=== PATIENT | female | born 1940 | race Caucasian/White ===

== ENCOUNTER → 2016-12-29 | Outpatient (CLI) | payer OTHER ==
[~2016-12-29] MED LIST: BIOT1TAB2 PO; LACT1CAP6 PO; METO25TA56 PO
--- NOTE | 2016-12-29 15:09 | MAMMOGRAPHY REPORT ---
BILATERAL DIGITAL SCREENING MAMMOGRAM WITH CAD: 12/29/2016 CLINICAL HISTORY: Routine screening. Patient has no complaints. TECHNIQUE: Current study was also evaluated with a Computer Aided Detection (CAD) system. Bilateral CC and MLO views were obtained. COMPARISON: Comparison is made to exams dated: 12/29/2015 mammogram, 12/09/2014 mammogram, 11/19/2013 ma mmogram, 11/04/2012 mammogram, 11/02/2011 mammogram, and 10/31/2010 mammogram - [facility]. BREAST COMPOSITION: The tissue of both breasts is heterogeneously dense, which may obscure small mas ses. FINDINGS: No suspicious masses, calcifications, or areas of architectural distortion are noted in ei ther breast. There has been no significant interval change compared to prior exams. Scattered bilater al benign-appearing calcifications are not significantly changed. A linear scar marker denotes a sca r on the left upper outer breast. Possible architectural distortion in the left upper outer quadrant is stable compared to multiple prior exams and presumably represents postsurgical changes as it is i n the region of the patient's scar. IMPRESSION: ACR BI-RADS CATEGORY 2: BENIGN There is no mammographic evidence of malignancy. A 1 year screening mammogram is recommended. The pa tient will receive written notification of the results. Approximately 10% of breast cancers are not detected with mammography. A negative mammographic report should not delay biopsy if a clinically suggestive mass is present. Mirian Roque M.D. /:12/29/2016 12:33:11 Glue Maker Bone: Geovanna GALLO)(Leo), [facility] letter sent: Normal 1/2 BI-RADS Code: ACR BI-RADS Category 2: Benign
== END | disposition home or self-care (01) ==
LOC: C.MAMM 11:04
PROVIDERS: ATTEND Obstetrics & Gynecology
DX: Z12.31 Encounter for screening mammogram for malignant neoplasm of breast (principal)

== ENCOUNTER → 2017-02-06 | Outpatient (CLI) | payer OTHER | END | disposition home or self-care (01) | LOC: C.PAPS 14:14 | PROVIDERS: ATTEND Obstetrics & Gynecology | DX: Z12.4 Encounter for screening for malignant neoplasm of cervix (principal) ==

== ENCOUNTER 2024-05-10 08:05 | Inpatient (IN) ==
--- NOTE | 2024-05-10 08:38 | Emergency Department Note ---
Impression & Plan Acute urinary retention, Stercoral colitis ED Provider Note HISTORY OF PRESENT ILLNESS: Patient is an 83-year-old female presenting with being unable to urinate. Patient reports that she has not been able to fully empty her bladder in the last week. She had hemorrhoidectomy surgery 5 days ago and states that she has been having difficulties urinate ever since. She has been using sitz bath's and urinating during her sitz bath's. Reports that last night she felt significant pressure and labor pains but was only able to get a few drops of urine out at a time. She states significant pain and pressure in her lower abdomen. Denies any nausea or vomiting. She denies any fevers. Patient reports that she had not had a bowel movement all week until last night when she finally took some milk of magnesia. ROS: as above PHYSICAL EXAM: Constitutional: Patient appears in no acute distress. HENT: Head: Normocephalic and atraumatic. Eyes: EOMI, PERRL Mouth/Throat: Mucous membranes moist. Neck: Trachea midline. Neck supple. Cardiovascular: RRR, No murmurs, rubs or gallops. Intact distal pulses. Pulmonary/Chest: No respiratory distress. Breath sounds clear and equal bilaterally. No wheezes or rales. Abdominal: Abdomen soft, no rebound or guarding. Lower abdominal tenderness and fullness Musculoskeletal: No edema, tenderness or deformity noted. Skin: Warm and dry. No rash, erythema, pallor or cyanosis Psychiatric: Appropriate mood and affect for situation. Neurological: Alert and keenly responsive. CN II-XII grossly intact, moving all extremities equally and fully. MDM: - Vitals signs showed hypertension. Patient was bladder scan by nursing staff for over 1000 cc of urine in her bladder. A Sanders catheter was placed. - History obtained via patient. History as above. - Chronic conditions affecting care: pancreatic cyst; hemorrhoids; HTN - Differential diagnoses include, but are not limited to: urinary obstruction; NAVEEN; electrolyte abnormality; post-operative infection - Order placed for continuous cardiac monitoring. At this time, monitor showed rate of 69 bpm with normal sinus rhythm, per my interpretation. - External medical records reviewed. [facility] documentation was reviewed. Patient was seen and colorectal surgery clinic on 05/03/2024 for rectal discharge. She had an anoscopy performed in clinic that showed the "notable for internal hemorrhoids, but primary problem was left posterior lateral hemorrhoid." She was planned to have a hemorrhoidectomy performed. The procedure note from [facility] dated 05/05/2024 was also reviewed. Patient had a large, engorged hemorrhoid. She had a 3: Hemorrhoidectomy, with internal and external components performed. - Laboratory workup interpreted by myself showed normal WBC; stable electrolytes; transaminitis (AST 120; ALT 69) - Patient given 50 mcg IV fentanyl and 4 mg IV zofran in ER for pain and nausea. - Patient requested her home medications of 25 mg PO HCTZ and 50 mg PO toprol XL, which were ordered - UA negative for infection - CT abdomen/pelvis with IV contrast showed moderate fecal retention in the rectum and findings concerning for stercoral proctitis. Also noted to have in a moderate size bowel containing supraumbilical hernia. - Lactate added to workup. - Given patient's recent hemorrhoidectomy procedure and her findings of stercoral proctitis on CT scan, IV rocephin + flagyl added for antibiotic coverage - Discussed case with surgeon transitions rn care coordinator, Dr. Felton, at 11:05 AM, who agreed with plan for admission for IV antibiotics. - Discussion was had with pillowcase cleaner about patient's case and need for admission - Hospitalist consulted for admission - Patient admitted to [facility] for further evaluation and management. ASSESSMENT AND PLAN: Diagnosis: acute urinary retention; stercoral colitis Plan: admit Past Med/Surg History Problem List (Updated 05/10/24 @ 11:08 by Carlota Ellison MD) Stercoral colitis (Acute) Acute urinary retention (Acute) Plantar fasciitis Pancreatic cyst (Chronic) Dehydration (Acute) Dehydration (Acute 03/16/14) Fever (Acute) Fever (Acute) Hepatitis (Acute) LFT elevation (Acute 03/16/14) Viral syndrome (Acute 03/16/14) Social History Smoking Status: Never smoker Allergies Allergies Allergy/AdvReac Type Severity Reaction Status Date / Time procaine [From Novocain] AdvReac Severe Made arms Unverified 05/10/24 10:26 weak Home Meds Home Medications Medication Instructions Recorded Confirmed lactobacillus combination no.4 3 3,000 mmu cells PO 2XWK ##0 03/15/14 05/10/24 billion cell capsule (Probiotic) apixaban 5 mg tablet (Eliquis) 5 mg PO BID 05/10/24 05/10/24 coenzyme Q10 100 mg capsule 100 mg PO DAILY 05/10/24 05/10/24 (CoQ-10) gabapentin 300 mg capsule 300 mg PO BID 05/10/24 05/10/24 hydrochlorothiazide 25 mg tablet 25 mg PO DAILY 05/10/24 05/10/24 hydroxyurea 500 mg capsule 500 mg PO UD 05/10/24 05/10/24 metoprolol succinate 50 mg 50 mg PO DAILY 05/10/24 05/10/24 tablet,extended release 24 hr oxycodone 5 mg tablet 5 mg PO Q6H PRN Pain 05/10/24 05/10/24 rosuvastatin 20 mg tablet 20 mg PO DAILY 05/10/24 05/10/24 tobramycin-dexamethasone 0.3 %-0.1 1 applic OPB DAILY PRN Rash 05/10/24 05/10/24 % eye ointment (TobraDex) Results & Data (ED) Vital Signs Vital Signs - 24 hr 05/10/24 08:15 05/10/24 08:15 05/10/24 08:41 Temperature 36.9 C Temperature Source Oral Oral Pulse Rate 80 74 Pulse Rate from SpO2 Sensor Respiratory Rate 15 Blood Pressure 162/89 H Blood Pressure Mean 113 Pulse Oximetry 94 Oxygen Delivery Method Room Air Sepsis Recent Fever Within 48 Hours No Sepsis New/Unexplained Change in Mental Status N/A Sepsis Action Taken by Nursing No Action Required 05/10/24 09:06 05/10/24 09:30 05/10/24 10:12 Temperature Temperature Source Pulse Rate 77 65 69 Pulse Rate from SpO2 Sensor 74 65 69 Respiratory Rate 23 13 16 Blood Pressure 163/100 H 146/76 H 151/82 H Blood Pressure Mean 121 99 105 Pulse Oximetry 98 99 99 Oxygen Delivery Method Sepsis Recent Fever Within 48 Hours Sepsis New/Unexplained Change in Mental Status Sepsis Action Taken by Nursing 05/10/24 10:33 Temperature Temperature Source Pulse Rate 71 Pulse Rate from SpO2 Sensor 71 Respiratory Rate 14 Blood Pressure 143/77 H Blood Pressure Mean 99 Pulse Oximetry 100 Oxygen Delivery Method Sepsis Recent Fever Within 48 Hours Sepsis New/Unexplained Change in Mental Status Sepsis Action Taken by Nursing Laboratory Data 05/10/24 08:22 05/10/24 08:22 Lab Results 05/10/24 05/10/24 Range/Units 08:22 08:54 WBC 6.23 (4.8-10.8) K/ul RBC 3.34 L (4.20-5.40) M/uL Hgb 13.5 (12.0-16.0) g/dl Hct 37.5 (37.0-47.0) % MCV 112.3 H (80.0-100.0) fL MCH 40.4 H (25.0-34.0) pg MCHC 36.0 (32.0-36.0) g/dL RDW Std Deviation 55.3 H (36.4-46.3) fL RDW Coeff of Candida 13.5 (11.5-14.5) % Plt Count 311 (130-400) K/uL MPV 9.4 (9.4-12.4) fL Immature Gran % (Auto) 0.5 % Neut % (Auto) 63.1 % Lymph % (Auto) 25.5 % Cassia % (Auto) 10.1 % Eos % (Auto) 0.6 % Baso % (Auto) 0.2 % Neut # (Auto) 3.93 (1.40-6.50) K/uL Lymph # (Auto) 1.59 (1.20-3.40) K/uL Cassia # (Auto) 0.63 H (0.11-0.59) K/uL Eos # (Auto) 0.04 (0.00-0.50) K/uL Baso # (Auto) 0.01 (0.00-0.20) K/uL Immature Gran # (Auto) 0.03 (0.01-0.20) K/uL Absolute Nucleated RBC 0.05 (0.00-0.12) K/uL Nucleated RBC % (auto) 0.8 % Polychromasia 1+ Macrocytosis Present Pappenheimer Bodies 2+ [place] Bodies 1+ Sodium 138 (136-145) mmol/L Potassium 3.9 (3.5-5.1) mmol/L Chloride 99 (98-107) mmol/L Carbon Dioxide 30 (21-32) mmol/L Anion Gap 9 (3-11) BUN 20 (6-23) mg/dl Creatinine 0.74 (0.6-1.2) mg/dl Est Cr Clr Drug Dosing 60.7 ml/min eGFR 80.23 BUN/Creatinine Ratio 27.0 H (10-20) Glucose 117 H (70-99(Fasting)) mg/dl Calcium 9.7 (8.6-10.3) mg/dl Total Bilirubin 1.1 H (0.2-1.0) mg/dl AST 120 H (13-39) U/L ALT 69 H (7-52) U/L Alkaline Phosphatase 184 H (34-104) U/L Total Protein 6.6 (6.0-8.3) gm/dl Albumin 3.9 (3.4-5.0) gm/dl Globulin 2.7 (2.5-4.0) gm/dl Albumin/Globulin Ratio 1.4 (0.9-2) Urine Color Yellow Urine Appearance Clear (Clear) Urine pH 7.5 (4.5-7.5) Ur Specific Emery 1.014 (1.000-1.030) Urine Protein Negative (Negative) Urine Glucose (UA) Negative (Negative) Urine Ketones Trace H (Negative) Urine Blood Negative (Negative) Urine Nitrite Negative (Negative) Urine Bilirubin Negative (Negative) Urine Urobilinogen Negative (Negative) Ur Leukocyte Esterase Negative (Negative) Administered Medications Discontinued Medications Fentanyl Citrate (Fentanyl Citrate Pf 100 Mcg/2 Ml Vial) 50 mcg IV NOW STA Stop: 05/10/24 08:37 Last Admin: 05/10/24 09:04 Dose: 50 mcg Documented By: ERWIN Hydrochlorothiazide (Hydrochlorothiazide 25 Mg Tab) 25 mg PO NOW STA Stop: 05/10/24 09:27 Last Admin: 05/10/24 10:59 Dose: 25 mg Documented By: ERWIN Ceftriaxone Sodium (Rocephin) 2,000 mg in 50 mls @ 100 mls/hr IV NOW STA Stop: 05/10/24 10:59 Last Admin: 05/10/24 10:59 Dose: 100 mls/hr Documented By: ERWIN Metoprolol Succinate (Metoprolol Succ 50mg Ext Rel Tab) 50 mg PO NOW STA Stop: 05/10/24 09:27 Last Admin: 05/10/24 10:59 Dose: 50 mg Documented By: ERWIN Ondansetron HCl (Ondansetron Inj 2 Mg/Ml 2 Ml Vial) 4 mg IV NOW STA Stop: 05/10/24 08:37 Last Admin: 05/10/24 09:04 Dose: 4 mg Documented By: [facility] Imaging Data Radiologist's Impression: Abdomen/Pelvis CT 05/10/24 09:[address] WITHOUT CONTRAST CT DOSE: 1078.2 mGy.cm HISTORY: Acute lower abdominal pain lower abd pain; urinary retention TECHNIQUE: Multiaxial CT images of the abdomen and pelvis were performed without contrast. A dose lowering technique was utilized adhering to the principles of ALARA. COMPARISON STUDY: 03/15/2014 FINDINGS: Mild cardiomegaly. Mild dependent subsegmental bibasilar atelectasis versus scarring. No pneumoperitoneum. 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 Cholecystectomy. Unremarkable adrenal glands and liver. Cortical thinning of the kidneys. 8 mm nonobstructing calculus of the interpolar right kidney. There are a few probable cysts in the left kidney measuring up to 11 mm. No ureteral calculi or hydronephrosis. Decompressed urinary bladder with Sanders catheter. Atherosclerosis of the aorta without aneurysm. No pathologically enlarged lymph nodes identified. Mild nonspecific distal esophageal wall thickening. Moderate fecal retention within the rectum with rectal wall thickening and perirectal stranding. Subcentimeter perirectal lymph nodes are also present. Colonic distention with air-fluid levels. No small bowel obstruction. There is a supraumbilical hernia which is fat filled measuring 6.4 cm containing a portion of nonobstructed transverse colon. No CT evidence of acute appendicitis. No acute fracture. IMPRESSION: 1. Right nephrolithiasis. No ureteral calculi or hydronephrosis. 2. No bowel obstruction or pneumoperitoneum. 3. Moderate fecal retention of the rectum with findings suggestive of a stercoral proctitis. Findings could be correlated with colonoscopy to exclude an underlying mucosal lesion. 4. Subcentimeter perirectal lymph nodes. 5. Colonic air-fluid levels suggestive of diarrheal illness versus colonic ileus. 6. Moderate-sized bowel containing supraumbilical hernia. ACT 112: Negative or not required by law. The above report was generated using voice recognition software. It may contain grammatical, syntax or spelling errors. Electronically signed by: Cam Lyles M.D. 05/10/2024 10:10 AM Discharge Plan Visit Data Chief Complaint: Unable to Void Stated Complaint: Unable to Void ED Provider: Carlota Ellison Discharge Problem: Acute urinary retention, Stercoral colitis Forms Stand Alone Forms: My [facility] Prescriptions Prescriptions: No Action Probiotic 3 billion cell Capsule 3,000 mmu cells PO 2XWK Qty: 0 Rx Instructions: Sun/Wed hydroxyurea 500 mg capsule 500 mg PO UD Rx Instructions: Take 1000mg by mouth on Sun/Sun/Fri and 500mg all other days metoprolol succinate 50 mg tablet extended release 24 hr 50 mg PO DAILY TobraDex 0.3-0.1 % ointment 1 applic OPB DAILY PRN (Reason: Rash) gabapentin 300 mg capsule 300 mg PO BID hydrochlorothiazide 25 mg tablet 25 mg PO DAILY oxycodone 5 mg tablet 5 mg PO Q6H PRN (Reason: Pain) coenzyme Q10 [CoQ-10] 100 mg Capsule 100 mg PO DAILY rosuvastatin 20 mg tablet 20 mg PO DAILY Eliquis 5 mg tablet 5 mg PO BID Referrals Referrals: Kathryn Dennison DO [Primary Care Provider] -
[2024-05-10] MEDS: fentaNYL citrate PF 100 MCG/2 ML VIAL IV STA (09:04)
[2024-05-10] MEDS: ONDANSETRON INJ 2 MG/ML 2 ML VIAL IV STA (09:04)
[2024-05-10 09:07] LABS: Albumin Globulin Ratio 1.4 (0.9-2); Albumin Level 3.9 gm/dl (3.4-5.0); Bilirubin,Total 1.1 mg/dl (0.2-1.0); Calcium 9.7 mg/dl (8.6-10.3); Creatinine Clr Calc Pharmacy 60.7 ml/min; Globulin 2.7 gm/dl (2.5-4.0); Potassium 3.9 mmol/L (3.5-5.1); Total Protein 6.6 gm/dl (6.0-8.3)
[2024-05-10 09:09] LABS: Appearance Urine Clear (Clear); Bilirubin Urine Negative (Negative); Blood Urine Negative (Negative); Color Urine Yellow; Glucose Urine UA Negative (Negative); Ketones Urine Trace (Negative); Leukocyte Esterase Urine Negative (Negative); Nitrite Urine Negative (Negative); Protein Urine Negative (Negative); Specific Gravity Urine 1.014 (1.000-1.030); Urobilinogen Urine Negative (Negative); pH Urine 7.5 (4.5-7.5)
[2024-05-10 09:10] LABS: Basophils # (auto) 0.01 K/uL (0.00-0.20); Basophils % (auto) 0.2 %; Eosinophils # (auto) 0.04 K/uL (0.00-0.50); Eosinophils % (auto) 0.6 %; Hematocrit (blood only) 37.5 % (37.0-47.0); Hemoglobin 13.5 g/dl (12.0-16.0); Immature Granulocytes # (auto) 0.03 K/uL (0.01-0.20); Immature Granulocytes % (auto) 0.5 %; Lymphocytes # (auto) 1.59 K/uL (1.20-3.40); Lymphocytes % (auto) 25.5 %; Mean Corpuscular Hemoglobin 40.4 pg (25.0-34.0); Mean Corpuscular Volume 112.3 fL (80.0-100.0); Mean Platelet Volume 9.4 fL (9.4-12.4); Monocytes # (auto) 0.63 K/uL (0.11-0.59); Monocytes % (auto) 10.1 %; Neutrophils # (auto) 3.93 K/uL (1.40-6.50); Neutrophils % (auto) 63.1 %; Nucleated RBC # (auto) 0.05 K/uL (0.00-0.12); Nucleated RBC % (auto) 0.8 %; Platelet Count 311 K/uL (130-400); RDW Coefficient of Variation 13.5 % (11.5-14.5); RDW Standard Deviation 55.3 fL (36.4-46.3); Red Blood Count 3.34 M/uL (4.20-5.40); White Blood Count 6.23 K/ul (4.8-10.8)
[2024-05-10 09:32] LABS: Howell-Jolly Bodies 1+; Macrocytosis Present; Pappenheimer Bodies 2+; Polychromasia 1+
--- NOTE | 2024-05-10 10:12 | CT Scan Report ---
ABDOMEN AND PELVIS CT WITHOUT CONTRAST CT DOSE: 1078.2 mGy.cm HISTORY: Acute lower abdominal pain lower abd pain; urinary retention TECHNIQUE: Multiaxial CT images of the abdomen and pelvis were performed without contrast. A dose lo wering technique was utilized adhering to the principles of ALARA. COMPARISON STUDY: 03/15/2014 FINDINGS: Mild cardiomegaly. Mild dependent subsegmental bibasilar atelectasis versus scarring. No pn eumoperitoneum. 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 Cholecystectomy. Unremarkable a drenal glands and liver. Cortical thinning of the kidneys. 8 mm nonobstructing calculus of the interp olar right kidney. There are a few probable cysts in the left kidney measuring up to 11 mm. No ureter al calculi or hydronephrosis. Decompressed urinary bladder with Sanders catheter. Atherosclerosis of th e aorta without aneurysm. No pathologically enlarged lymph nodes identified. Mild nonspecific distal esophageal wall thickening. Moderate fecal retention within the rectum with r ectal wall thickening and perirectal stranding. Subcentimeter perirectal lymph nodes are also present . Colonic distention with air-fluid levels. No small bowel obstruction. There is a supraumbilical her marimar which is fat filled measuring 6.4 cm containing a portion of nonobstructed transverse colon. No C T evidence of acute appendicitis. No acute fracture. IMPRESSION: 1. Right nephrolithiasis. No ureteral calculi or hydronephrosis. 2. No bowel obstruction or pneumoperitoneum. 3. Moderate fecal retention of the rectum with findings suggestive of a stercoral proctitis. Findings could be correlated with colonoscopy to exclude an underlying mucosal lesion. 4. Subcentimeter perirectal lymph nodes. 5. Colonic air-fluid levels suggestive of diarrheal illness versus colonic ileus. 6. Moderate-sized bowel containing supraumbilical hernia. ACT 112: Negative or not required by law. The above report was generated using voice recognition software. It may contain grammatical, syntax o r spelling errors. Electronically signed by: Cam Lyles M.D. 05/10/2024 10:10 AM
[2024-05-10] MEDS: hydroCHLOROthiazide 25 MG TAB PO STA (10:59)
[2024-05-10] MEDS: cefTRIAXone SODIUM 2,000 MG/50 ML BAG IV STA (10:59)
[2024-05-10] MEDS: METOPROLOL SUCC 50MG EXT REL TAB PO STA (10:59)
--- NOTE | 2024-05-10 11:07 | History & Physical Report ---
Date of Service May 10, 2024 Assessment & Plan (1) Stercoral colitis: Plan: Continue IV ceftriaxone and IV metronidazole per general surgery recommendations Consult general surgery Clear liquids and advance as tolerated (2) Acute urinary retention: Plan: Continue Sanders catheter Consult urology No signs of UTI Patient has nephrolithiasis (3) Paroxysmal atrial fibrillation: Plan: Continue metoprolol Rate is controlled Continue apixaban but may need to hold if she has any further rectal bleeding or drop in hemoglobin (4) Chronic anticoagulation: Plan: On apixaban (5) S/P hemorrhoidectomy: Plan: Surgery follow-up Observe for any further bleeding (6) Polycythemia: Plan: Continue hydroxyurea Plan VTE prophylaxis: Patient on chronic apixaban Patient is a full code 75 minutes was spent in the care coordination of this patient. History of Present Illness Chief Complaint: Abdominal pain Primary Care Provider: Kathryn Dennison DO Vanna Art is an 83-year-old female with a previous history significant for history of splenectomy, paroxysmal atrial fibrillation on chronic apixaban, polycythemia vera, hyperlipidemia, calculus of kidney, symptomatic PVCs, pancreatic cyst consistent with intraductal papillary mucinous neoplasm and recent rectal surgery consisting of hemorrhoidectomy 5 days ago at [facility] with colorectal surgery. She presents to the ED today with a complaint of not being able to urinate. Patient reports that she has not been able to fully empty her bladder in the last week. She had hemorrhoidectomy surgery 5 days ago and states that she has been having difficulties urinate ever since. She has been using sitz bath's and urinating during her sitz bath's. Reports that last night she felt significant pressure but was only able to get a few drops of urine out at a time. She states significant pain and pressure in her lower abdomen. Denies any nausea or vomiting. She denies any fevers. Patient reports that she had not had a bowel movement all week until last night when she finally took some milk of magnesia. In the ED a Sanders catheter was inserted and she had over 1 L of retained urine. CT scan shows probable proctitis. ED provider discussed case with surgery and they recommended admission with IV antibiotics. Patient was started on IV metronidazole and ceftriaxone. Patient is referred for admission for further treatment. Allergies Allergy/AdvReac Type Severity Reaction Status Date / Time procaine [From Novocain] AdvReac Severe Made arms Unverified 05/10/24 10:26 weak Home Medications Medication Instructions Recorded Confirmed Type lactobacillus combination no.4 3 3,000 mmu cells PO 2XWK ##0 03/15/14 05/10/24 History billion cell capsule (Probiotic) apixaban 5 mg tablet (Eliquis) 5 mg PO BID 05/10/24 05/10/24 History coenzyme Q10 100 mg capsule 100 mg PO DAILY 05/10/24 05/10/24 History (CoQ-10) gabapentin 300 mg capsule 300 mg PO BID 05/10/24 05/10/24 History hydrochlorothiazide 25 mg tablet 25 mg PO DAILY 05/10/24 05/10/24 History hydroxyurea 500 mg capsule 500 mg PO UD 05/10/24 05/10/24 History metoprolol succinate 50 mg 50 mg PO DAILY 05/10/24 05/10/24 History tablet,extended release 24 hr oxycodone 5 mg tablet 5 mg PO Q6H PRN Pain 05/10/24 05/10/24 History rosuvastatin 20 mg tablet 20 mg PO DAILY 05/10/24 05/10/24 History tobramycin-dexamethasone 0.3 %-0.1 1 applic OPB DAILY PRN Rash 05/10/24 05/10/24 History % eye ointment (TobraDex) Past Med/Surg History Problem List (Updated 05/10/24 @ 11:14 by Eliseo Goldstein DO) Polycythemia S/P hemorrhoidectomy Chronic anticoagulation Paroxysmal atrial fibrillation Stercoral colitis (Acute) Acute urinary retention (Acute) Plantar fasciitis Pancreatic cyst (Chronic) Dehydration (Acute) Dehydration (Acute 03/16/14) Fever (Acute) Fever (Acute) Hepatitis (Acute) LFT elevation (Acute 03/16/14) Viral syndrome (Acute 03/16/14) Social History Smoking Status: Never smoker Review of Systems Review of Systems: Constitutional- no fever; no chills Eyes- no acute visual changes ENT- no sinus drainage; no pharyngitis Pulmonary- no cough, no wheezing, no shortness of breath Cardiac- no chest pain, no palpitations, no orthopnea, no dependent edema GI- no nausea, no vomiting, mild hematochezia since her surgery, has cramping abdominal pain almost like labor pains - no dysuria, no hematuria. Positive urinary retention Musculoskeletal- no arthralgias, no myalgias Derm- no rashes, no new skin lesions, no changing skin lesions Hematologic- no unusual bruising, no unusual bleeding other than above Lymphatics- no adenopathy Neuro- no headaches, no focal neuro deficits Physical Exam Physical Exam: General- adult elderly female seen at bedside. She is a good historian Head- atraumatic Eyes- PERRL, EOMI, anicteric ENT- oropharynx clear Neck- supple, no JVD, no adenopathy, no thyromegaly; carotids +2/2, no bruits appreciated Lungs- clear to auscultation and percussion Heart- regular rhythm; no murmur, no gallop, no rub appreciated Abdomen- normal bowel sounds, soft, diffuse tenderness in the lower quadrants and suprapubic area : Sanders catheter draining clear yellow urine Extremities- no pretibial edema, no calf tenderness; peripheral pulses intact Neuro- alert, oriented x 3; PERRL, EOMI; no facial palsy; no dysarthria; motor 5/5 bilaterally; Skin- warm & dry Results & Data Results & Data Vital Signs (Past 12 Hours) Vital Signs Temp Pulse Resp BP Pulse Ox O2 Del Method 05/10/24 10:33 71 14 143/77 H 100 05/10/24 10:12 69 16 151/82 H 99 05/10/24 09:30 65 13 146/76 H 99 05/10/24 09:06 77 23 163/100 H 98 05/10/24 08:41 74 05/10/24 08:15 36.9 C 80 15 162/89 H 94 Room Air Diagnostic Findings Laboratory Results WBC 6.23 K/ul (4.8-10.8) 05/10/24 08:22 RBC 3.34 M/uL (4.20-5.40) L 05/10/24 08:22 Hgb 13.5 g/dl (12.0-16.0) 05/10/24 08:22 Hct 37.5 % (37.0-47.0) 05/10/24 08:22 MCV 112.3 fL (80.0-100.0) H 05/10/24 08:22 MCH 40.4 pg (25.0-34.0) H 05/10/24 08:22 MCHC 36.0 g/dL (32.0-36.0) 05/10/24 08:22 RDW Std Deviation 55.3 fL (36.4-46.3) H 05/10/24 08:22 RDW Coeff of Candida 13.5 % (11.5-14.5) 05/10/24 08:22 Plt Count 311 K/uL (130-400) 05/10/24 08:22 MPV 9.4 fL (9.4-12.4) 05/10/24 08:22 Immature Gran % (Auto) 0.5 % 05/10/24 08:22 Neut % (Auto) 63.1 % 05/10/24 08:22 Lymph % (Auto) 25.5 % 05/10/24 08:22 [place] % (Auto) 10.1 % 05/10/24 08:22 Eos % (Auto) 0.6 % 05/10/24 08:22 Baso % (Auto) 0.2 % 05/10/24 08:22 Neut # (Auto) 3.93 K/uL (1.40-6.50) 05/10/24 08:22 Lymph # (Auto) 1.59 K/uL (1.20-3.40) 05/10/24 08:22 Finney # (Auto) 0.63 K/uL (0.11-0.59) H 05/10/24 08:22 Eos # (Auto) 0.04 K/uL (0.00-0.50) 05/10/24 08:22 Baso # (Auto) 0.01 K/uL (0.00-0.20) 05/10/24 08:22 Immature Gran # (Auto) 0.03 K/uL (0.01-0.20) 05/10/24 08:22 Absolute Nucleated RBC 0.05 K/uL (0.00-0.12) 05/10/24 08:22 Nucleated RBC % (auto) 0.8 % 05/10/24 08:22 Polychromasia 1+ 05/10/24 08:22 Macrocytosis Present 05/10/24 08:22 Pappenheimer Bodies 2+ 05/10/24 08:22 [place] Bodies 1+ 05/10/24 08:22 Sodium 138 mmol/L (136-145) 05/10/24 08:22 Potassium 3.9 mmol/L (3.5-5.1) 05/10/24 08:22 Chloride 99 mmol/L (98-107) 05/10/24 08:22 Carbon Dioxide 30 mmol/L (21-32) 05/10/24 08:22 Anion Gap 9 (3-11) 05/10/24 08:22 BUN 20 mg/dl (6-23) 05/10/24 08:22 Creatinine 0.74 mg/dl (0.6-1.2) 05/10/24 08:22 Est Cr Clr Drug Dosing 60.7 ml/min 05/10/24 08:22 eGFR 80.23 05/10/24 08:22 BUN/Creatinine Ratio 27.0 (10-20) H 05/10/24 08:22 Glucose 117 mg/dl (70-99(Fasting)) H 05/10/24 08:22 Calcium 9.7 mg/dl (8.6-10.3) 05/10/24 08:22 Total Bilirubin 1.1 mg/dl (0.2-1.0) H 05/10/24 08:22 AST 120 U/L (13-39) H 05/10/24 08:22 ALT 69 U/L (7-52) H 05/10/24 08:22 Alkaline Phosphatase 184 U/L (34-104) H 05/10/24 08:22 Total Protein 6.6 gm/dl (6.0-8.3) 05/10/24 08:22 Albumin 3.9 gm/dl (3.4-5.0) 05/10/24 08:22 Globulin 2.7 gm/dl (2.5-4.0) 05/10/24 08:22 Albumin/Globulin Ratio 1.4 (0.9-2) 05/10/24 08:22 Urine Color Yellow 05/10/24 08:54 Urine Appearance Clear (Clear) 05/10/24 08:54 Urine pH 7.5 (4.5-7.5) 05/10/24 08:54 Ur Specific [place] 1.014 (1.000-1.030) 05/10/24 08:54 Urine Protein Negative (Negative) 05/10/24 08:54 Urine Glucose (UA) Negative (Negative) 05/10/24 08:54 Urine Ketones Trace (Negative) H 05/10/24 08:54 Urine Blood Negative (Negative) 05/10/24 08:54 Urine Nitrite Negative (Negative) 05/10/24 08:54 Urine Bilirubin Negative (Negative) 05/10/24 08:54 Urine Urobilinogen Negative (Negative) 05/10/24 08:54 Ur Leukocyte Esterase Negative (Negative) 05/10/24 08:54 Impressions Abdomen/Pelvis CT 05/10/24 09:[address] WITHOUT CONTRAST CT DOSE: 1078.2 mGy.cm HISTORY: Acute lower abdominal pain lower abd pain; urinary retention TECHNIQUE: Multiaxial CT images of the abdomen and pelvis were performed without contrast. A dose lowering technique was utilized adhering to the principles of ALARA. COMPARISON STUDY: 03/15/2014 FINDINGS: Mild cardiomegaly. Mild dependent subsegmental bibasilar atelectasis versus scarring. No pneumoperitoneum. 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 Cholecystectomy. Unremarkable adrenal glands and liver. Cortical thinning of the kidneys. 8 mm nonobstructing calculus of the interpolar right kidney. There are a few probable cysts in the left kidney measuring up to 11 mm. No ureteral calculi or hydronephrosis. Decompressed urinary bladder with Sanders catheter. Atherosclerosis of the aorta without aneurysm. No pathologically enlarged lymph nodes identified. Mild nonspecific distal esophageal wall thickening. Moderate fecal retention within the rectum with rectal wall thickening and perirectal stranding. Subcentimeter perirectal lymph nodes are also present. Colonic distention with air-fluid levels. No small bowel obstruction. There is a supraumbilical hernia which is fat filled measuring 6.4 cm containing a portion of nonobstructed transverse colon. No CT evidence of acute appendicitis. No acute fracture. IMPRESSION: 1. Right nephrolithiasis. No ureteral calculi or hydronephrosis. 2. No bowel obstruction or pneumoperitoneum. 3. Moderate fecal retention of the rectum with findings suggestive of a stercoral proctitis. Findings could be correlated with colonoscopy to exclude an underlying mucosal lesion. 4. Subcentimeter perirectal lymph nodes. 5. Colonic air-fluid levels suggestive of diarrheal illness versus colonic ileus. 6. Moderate-sized bowel containing supraumbilical hernia. ACT 112: Negative or not required by law. The above report was generated using voice recognition software. It may contain grammatical, syntax or spelling errors. Electronically signed by: Cam Lyles M.D. 05/10/2024 10:10 AM Medications Administered Current Inpatient Medications Metronidazole (Flagyl) 500 mg in 100 mls @ 100 mls/hr IV NOW STA; Protocol Stop: 05/10/24 11:29
--- OUTSIDE RECORDS SUMMARY | 2024-05-10 11:25 | External Medical Summary | Summary of Care ---
Author Name Unknown Organization [facility] Address [address] [place] [address] Phone [phone] Care Team Providers Care Song And Dance Performer Name Role Phone SanjeevKathryn rodriguez Leo WARD Primary Care Provider [phone] Reason for Visit * Reason Onset Date Comments Procedure 04/22/2024 Encounter Details Date Type Department Care Team (Late st Contact Info) Description 04/22/2024 Telephone General Surgery, [place] [address] [place] [address] Kathy Haskins MD [address] [place] [address] Procedure Allergies Active Allergy Reactions Criticality Noted Date Comments Meloxicam Other (Please comment) 12/08/2020 Hyperkalemia Novocain Other (Please comment) 04/27/2010 Chest tightness, uses Carbocaine instead Rapid heart rate, chest tightness, feeling of doom/panic. Unlikely to be LA allergy. Nearly always due to intravascular epi injection. Discussed with patient. documented as of this encounter (statuses as of 04/22/2024) Medications Medication Sig Dispensed Refills Start Date End Date Status PROBIOTIC PO CAPS Take 1 Cap by mouth. Takes every 3 days Active Coenzyme Q10 (COQ10) 100 MG CAPS Take 1 Tab by mouth daily. Active Rosuvastatin Calcium 20 MG Oral Tablet (Crestor)Indicatio ns:Dyslipidemia, goal LDL below 100 TAKE 1 TABLET DAILY 90 Tablet 3 11/05/2023 Active hydroCHLOROthiazid e 25 MG Oral Tablet (Hydrodiuril) Take 1 Tablet by mouth in the morning. 90 Tablet 3 12/13/2023 Active Eliquis 5 MG Oral Tablet (Apixaban) TAKE 1 TABLET TWICE A DAY 180 Tablet 3 12/14/2023 Active Metoprolol Succinate ER 50 MG Oral Tablet Extended Release 24 Hour (toPROL XL) TAKE 1 TABLET IN THE MORNING 90 Tablet 3 03/03/2024 Active Hydroxyurea 500 MG Oral Capsule (Hydrea)Indication s:Polycythemia vera (HCC) TAKE 2 CAPSULES ON MONDAYS, WEDNESDAYS, AND FRIDAYS AND 1 CAPSULE ON SUNDAYS, TUESDAYS, THURSDAYS, AND SATURDAYS (DOSE INCREASE) 44 Capsule 4 03/27/2024 Active Gabapentin 300 MG Oral Capsule (Neurontin) Take 1 Capsule by mouth in the morning and 1 Capsule before bedtime. Start taking 2 days prior to surgery and continue until the prescription is finished.. 24 Capsule 04/22/2024 Active documented as of this encounter (statuses as of 04/22/2024) Active Problems Problem Noted Date Diagnosed Date Grade IV hemorrhoids 04/22/2024 Polycythemia vera 07/21/2023 History of atypical nevus 08/14/2022 History of actinic keratoses 08/14/2022 Paroxysmal atrial fibrillation 02/27/2020 IPMN (intraductal papillary mucinous neoplasm) 1 08/13/2013 H/O splenectomy 06/01/2014 Pancreatic cyst 05/12/2013 Symptomatic PVCs 07/25/2012 Calculus of kidney 11/20/2007 Hyperlipidemia with target LDL less than 100 Overview: Per Lipid Taxonomy. ADVANCE DIRECTIVE INFORMATION 12/18/2006 Overview: Yes, Patient instructed to provide copy of advance directive for provider to review and to be scanned into Electronic Medical Record documented as of this encounter (statuses as of 04/22/2024) Resolved Problems Problem Noted Date Diagnosed Date Resolved Date Essential and other specified forms of tremor 11/29/19 13 02/20/2017 Asthma with severity to be determined 12/16/2009 09/17/2014 Overview: Per Asthma Taxonomy ICD-10 update of inactive term Dyslipidemia, goal to be determined 06/03/2009 12/01/2009 Overview: Per Lipid Taxonomy. EXTRINSIC ASTHMA, UNSPEC 05/11/2005 Irritable bowel syndrome documented as of this encounter (statuses as of 04/22/2024) Immunizations Name Administration Dates Next Due COVID-19 mRNA, LNP-s, No Pre serve, 2-Dose Series (Moderna) 08/22/2020,07/15/2020 HIB PRP-T, 4 Dose, PF, IM (H iberix, ActHib) 05/27/2014 Meningococcal Conjugate Vacc ine (Menactra/Menveo) 05/27/2014 Pneumococcal Conjugate Vacc, 13 Valent (Prevnar) 05/27/2014 Pneumococcal Polysaccharide PPV23 (Pneumovax) 09/22/2005 RSV Vac., Bivalent, Perfusio n F, Pf,0.5 Ml (Abrysvo) 05/22/2023 Season Influenza, Quad, PF, Adjuvanted, 65+ Yrs, IM (FLUAD) 02/27/2020 Seasonal Influenza Vac., MDV , IM, 0.5 mL (Fluzone) 03/02/2015,04/25/2014,05/04/2013,04/16,04/04/2011,04/05/2010,04/21/2008 ,04/17/2007,04/18/2006 Seasonal Influenza, PF, 6 M & above, IM , (FluLaval or Fluzone) 03/18/2018 Seasonal Influenza, Quadriva lent Hd (Fluzone Hd) 03/28/2023,03/25/2021 Seasonal Influenza, Quadriva lent, No Preserve, IM 04/08/2017 Seasonal Influenza, Trivalen t, Adjuvanted, 65+ YRS, PF, (Fluad) 04/01/2019 TD, Preservative Free 11/22/2011 TDAP (age 10 and older)(Boostrix) 03/18/2018 documented as of this encounter Social History Tobacco Use Types Packs/Day Years Used Date Smoking Tobacco: Never Smokeless Tobacco: Never Alcohol Use Standard Drinks/Week Comments Yes 0 (1 standard drink = 0.6 oz pur e alcohol) rare PHQ-2 Answer Date Recorded PHQ Adult Total Score 0 03/25/2021 Hunger Vital Sign Answer Date Recorded Within the past 12 months, y ou worried that your food would run out before you got the money to buy more. Never true 05/21/20 23 Within the past 12 months, t he food you bought just didn't last and you didn't have money to get more. Never true 05/21/2023 Childcare Answer Date Recorded Do you feel overwhelmed with taking care of a child, family member or friend? No 05/21/2023 Does your family need help f inding childcare? (Household - for ages 0-17 years) Not on file 05/21/2023 Clothing Answer Date Recorded Have you been unable to get clothing when it was really needed? No 05/21/2023 Is your family able to get c lothes or diapers when needed? (Household - for ages 0-17 years) Not on file 05/21/2023 Personal Safety Answer Date Recorded Do you feel unsafe or have concerns for your saf ety? No 05/21/2023 Do you have concerns for you r family's safety? (Household - for ages 0-17 years) Not on file 05/21/2023 Utilities Answer Date Recorded Do you have trouble paying y our heating, water, or electric bill? No 05/21/2023 Is your family able to pay t he heat, water, or electric bill? (Household - for ages 0-17 years) Not on file 05/21/2023 Does your family have access to good internet? (Household - for ages 0-17 years) Not on file 05/21/2023 Employment Status Answer Date Recorded Are you unemployed or without regular income? No 05/21/2023 Does the household have a [facility] source of income? (Household - for ages 0-17 years) Not on file 05/21/2023 Social Connections Answer Date Recorded How often do you feel lonely or isolated from th ose around you? Never 05/21/2023 Financial Resource Strain Answer Date R ecorded Do you have any trouble payi ng for your medications, or do you think you might in the future? No 05/21/2023 Does your family have troubl e paying for medicine? (Household - for ages 0-17 years) Not on file 05/21/2023 Transportation Needs Answer Date Record ed READ ONLY Do you have troubl e getting a ride to medical visits or work? Never True 05/21/2023 Does your family have a hard time getting a ride to doctors visits? (Household - for ages 0-17 years) Not on file 05/21/2023 Has lack of transportation k ept you from medical appointments, meetings, work, or from getting things needed for daily living? Check all that apply. (Adult - for ages 18 years and over) Not on file 05/21/2023 Do you (or your family) have trouble finding or paying for a ride (transportation)? (Household - for ages 0-17 years) Not on file 05/21/2023 Housing Stability Answer Date Recorded Do you currently live in a s helter or have no steady place to sleep at night? No 05/21/2023 READ ONLY Do you think you a re at risk of becoming homeless? No 05/21/2023 Does your family worry about paying for your home or becoming homeless? (Household - for ages 0-17 years) Not on file 1 07/21/2022 Are you homeless or worried that you might be in the future? (Adult - for ages 18 years and over) Not on file Are you (or your family) christiano eless or worried that you might be in the future? (Household - for ages 0-17 years) Not on file Food Insecurity Answer Date Recorded Do you need food for this week? No 05/21/2023 Are you able to get enough f ood for your family? (Household - for ages 0-17 years) Not on file 05/21/2023 Does your family need food t his week? (Household - for ages 0-17 years) Not on file 05/21/2023 Do you always have enough fo od for your family? (Household - for ages 0-17 years) Not on file 05/21/2023 Sex and Gender Information Value Date Recorded Sex Assigned at Female 03/25/2021 9:14 AM EDT Gender Identity Female 03/25/2021 9:14 AM EDT Sexual Orientation Straight 03/25/2021 9: 14 AM EDT Job Start Date Occupation Industry Not on file Not on file Not on file documented as of this encounter Functional Status Functional Status Response Date of Assess ment Are you deaf or do you have serious difficulty h earing? No 05/25/2014 Are you blind or do you have serious difficulty seeing, even when wearing glasses? No 05/25/2014 Do you have serious difficul ty walking or climbing stairs? (5 years old or older) No 05/25/2014 Do you have difficulty dress ing or bathing? (5 years old or older) No 05/25/2014 Because of a physical, menta l, or emotional condition, do you have difficulty doing errands alone such as visiting a doctor s office or shopping? (15 years old or older) No 05/25/20 14 Cognitive Status Response Date of Assessm ent Because of a physical, menta l, or emotional condition, do you have serious difficulty concentrating, remembering, or making decisions? (5 years old or older) No 05/25/2014 documented as of this encounter Miscellaneous Notes * Telephone Encounter - Noni Florian OSA - 04/22/2024 3:01 PM EDT LVM for patient to call back to set up procedure with Dr. Haskins on or 05/05/24 if she isavailable. If not, will need to wait until June Awaiting response MEHREEN Carr documented in this encounter Plan of Treatment Upcoming Encounters Date Type Department Care Team (Late st Contact Info) Description 04/28/2024 10:00 AM EST Office Visit Cardiology, [facility] [address] [place] [id number] Bolivar Doshi PA-C [address] [place] [id number] 06/02/2024 11:00 AM EST Office Visit Hematology/On[facility] [address] [facility] [id number] Sahra Bryant CRNP [address] [place] [id number] 07/01/2024 8:20 AM EST Office Visit Family Practice [facility] [address] [place] [address] Kathryn Deninson DO [address] [place] [id number] 07/01/2024 9:00 AM EST Pharmacy Pharmacy Hematology Oncology [facility] [address] [place] [address] [facility]c [address] [place] [address] Scheduled Procedures Name Priority Associated Diagnoses Date/Ti me ANORECTAL EXAM UNDER ANESTHESIA Grade IV hemorrhoids HEMORRHOIDECTOMY EXTERNAL AN D INTERNAL COMPLEX Grade IV hemorrhoids Health Maintenance Due Date Last Done Comments Meningitis B Vaccine (Bexsero/Trumemba) (1 of 4 - Increased Risk) 1950 Zoster Vaccines (1 of 2) 08/26/1959 MENINGOCOCCAL (MENACTRA/MENVEO) (2 - Risk 2-dose series) 07/22/2014 05/27/2014 Adult Wellness Visit 03/25/2022 03/25/2021 Depression Screening 03/25/2022 03/25/2021 COVID-19 Vaccine ( - season) 2024 03/29/2023, 08/22/2020, 07/15/2020 Influenza Vaccine (FLU shot) (#1) 2024 04/05/2023, 03/28/2023, 04/18/2022, Additional history exists DTap/Tdap Vaccines (2 - Td or Tdap) 03/18/2028 03/18/2018, 03/18/2018, 11/22/2011 Pneumococcal Vaccine: 65+ Years Completed 05/27/2014, 09/22/2005 HPV (Gardasil) Vaccine Aged Out No lo nger eligible based on patient's age to complete this topic Hepatitis B Vaccine Aged Out No longe r eligible based on patient's age to complete this topic documented as of this encounter Medical Devices Not on filedocumented as of this encounter Advance Directives * Full Code (Latest Code Status on File) Date Activated Date Inactivated Comments 05/25/2014 2:38 PM 05/27/2014 6:15 PM Question Answer Comments Discussion of Advance Directives occurred with: Not Discussed * Full Code Date Activated Date Inactivated Comments 05/25/2014 8:54 AM 05/25/2014 2:38 PM Question Answer Comments Discussion of Advance Directives occurred with: Not Discussed Care Teams Song And Dance Performer Relationship Specialty Start Date End Date Kathryn Dennison DO [address] [facility] [place] [id number] PCP - General Family Medicine 09/28/16 documented as of this encounter
--- OUTSIDE RECORDS SUMMARY | 2024-05-10 11:25 | External Medical Summary | Summary of Care ---
Author Name Unknown Organization [facility] Address [address] [place] [address] Phone [phone] Care Team Providers Care Community Support Associate Name Role Phone SanjeevKathryn rodriguez eLo WARD Primary Care Provider [phone] Reason for Visit * Reason Onset Date Comments Advice 05/09/2024 Constipation, re ctal bleeding Encounter Details Date Type Department Care Team (Late st Contact Info) Description 05/09/2024 Telephone General Surgery, [place] [address] [place] [address] Kathy Haskins MD [address] [place] [address] Advice (Constipation, rectal bleeding) Allergies Active Allergy Reactions Criticality Noted Date Comments Meloxicam Other (Please comment) 12/08/2020 Hyperkalemia Novocain Other (Please comment) 04/27/2010 Chest tightness, uses Carbocaine instead Rapid heart rate, chest tightness, feeling of doom/panic. Unlikely to be LA allergy. Nearly always due to intravascular epi injection. Discussed with patient. documented as of this encounter (statuses as of 05/09/2024) Medications PROBIOTIC PO CAPS Take 1 Cap by mouth. Takes every 3 days Active Coenzyme Q10 (COQ10) 100 MG CAPS Take 1 Tab by mouth daily. Active Rosuvastatin Calcium 20 MG Oral Tablet (Crestor)Indica tions:Dyslipide ilda, goal LDL below 100 TAKE 1 TABLET DAILY 90 Tablet 3 4 Active hydroCHLOROthia zide 25 MG Oral Tablet (Hydrodiuril) Take 1 Tablet by mouth in the morning. 90 Tablet 3 4 Active Metoprolol Succinate ER 50 MG Oral Tablet Extended Release 24 Hour (toPROL XL) TAKE 1 TABLET IN THE MORNING 90 Tablet 3 4 Active Hydroxyurea 500 MG Oral Capsule (Hydrea)Indicat ions:Polycythem ia vera (HCC) TAKE 2 CAPSULES ON MONDAYS, WEDNESDAYS, AND FRIDAYS AND 1 CAPSULE ON SUNDAYS, TUESDAYS, THURSDAYS, AND SATURDAYS (DOSE INCREASE) 44 Capsule 4 4 Active Gabapentin 300 MG Oral Capsule (Neurontin) Take 1 Capsule by mouth in the morning and 1 Capsule before bedtime. Start taking 2 days prior to surgery and continue until the prescription is finished.. 24 Capsule 4 Active oxyCODONE HCl 5 MG Oral Tablet (Oxy IR) Take 1 Tablet by mouth every 6 hours as needed for Pain, Breakthrough. 30 Tablet 4 Active Apixaban 5 MG Oral Tablet (Eliquis) Take 1 Tablet by mouth in the morning and 1 Tablet before bedtime. HOLD for 2 days after surgery. OK to restart in evening of 05/07/2024. 180 Tablet 3 4 Active Acetaminophen 325 MG Oral Tablet (Tylenol) Take 3 Tablets by mouth every 6 hours. 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 documented as of this encounter (statuses as of 05/09/2024) Resolved Problems Problem Noted Date Diagnosed Date Resolved Date Essential and other specified forms of tremor 11/29/19 13 02/20/2017 Asthma with severity to be determined 12/16/2009 09/17/2014 Overview (10/04/2015): Per Asthma Taxonomy ICD-10 update of inactive term Dyslipidemia, goal to be determined 06/03/2009 12/01/2009 Overview (06/03/2009): Per Lipid Taxonomy. ADVANCE DIRECTIVE INFORMATION 12/18/2006 04/28/2024 Overview (12/18/2006): Yes, Patient instructed to provide copy of advance directive for provider to review and to be scanned into Electronic Medical Record EXTRINSIC ASTHMA, UNSPEC 05/11/2005 Irritable bowel syndrome documented as of this encounter (statuses as of 05/09/2024) Immunizations Name Administration Dates Next Due COVID-19 [...] No 05/21/2023 Does the household have a re gular source of income? (Household - for ages [...] ages 0-17 years) Not on file 05/21/2023 Comments No Sex and Gender Information Value Date Recorded Sex Assigned at Female 03/25/2021 9:14 AM EDT Legal Sex Female 5:56 AM EST Gender Identity Female 03/25/2021 9:14 AM EDT Sexual Orientation Straight 03/25/2021 9: 14 AM EDT documented as of this encounter Functional Status * Are you deaf or do you have serious difficulty hearing? Answer Date of Assessment Author No 05/25/2014 5:35 PM Varsha Garrido RN * Are you blind or do you have serious difficulty seeing, even when wearing glasses? Answer Date of Assessment Author No 05/25/2014 5:35 PM Varsha Garrido RN * Do you have serious difficulty walking or climbing stairs? (5 years old or older) Answer Date of Assessment Author No 05/25/2014 5:35 PM Varsha Garrido RN * Do you have difficulty dressing or bathing? (5 years old or older) Answer Date of Assessment Author No 05/25/2014 5:35 PM Varsha Garrido RN * Because of a physical, mental, or emotional condition, do you have difficulty doing errands alone such as visiting a doctors office or shopping? (15 years old or older) Answer Date of Assessment Author No 05/25/2014 5:35 PM Varsha Garrido RN documented as of this encounter Mental Status * Because of a physical, mental, or emotional condition, do you have serious difficulty concentrating, remembering, or making decisions? (5 years old or older) Answer Entry Date Author No 05/25/2014 5:35 PM Varsha Garrido RN documented in this encounter Miscellaneous Notes * Telephone Encounter - Asiya Marks LPN - 05/09/2024 2:42 PM EST Phone call from patient regarding her concern with Constipation, patient reported No BM since Sunday, took 2 Bisacodyl tablets yesterday and Colace, this morning took 1 Tbsp of MOM this morning, madepatient denies fevers or chills, no nausea or vomiting, no abdominal pain, advised patient to take 2 Tbsp. Of MOM with a full glass of water, patient also reports rectal bleeding takes Eliquis, made her aware if bleeding is severe to roll up a towel and place between buttocks and sit on the floor for 20 minutes if bleeding does not stop to come into the ED, provided patient with our Urgent numberin the event she would need it over the weekend. documented in this encounter Plan of Treatment Upcoming Encounters Date Type Department Care Team (Late st Contact Info) Description 05/28/2024 10:30 AM EST Office Visit General Surgery, [facility] [address] [facility] [place] [address] Viola Robledo [address] [place] [address] 06/02/2024 11:00 AM EST Office Visit Hematology/Oncology [facility] [address] [place] [address] Sahra Bryant CRNP [address] [place] [address] 07/01/2024 8:20 AM EST Office Visit Family Practice [facility] [address] [facility] [place] [address] Kathryn Dennison, DO [facility] [place] [address] 07/01/2024 9:00 AM EST Pharmacy Pharmacy Hematology Oncology [facility] [address] [place] [address] [facility], [facility] Hem/Onc [address] [place] [address] 11/03/2024 9:30 AM EDT Office Visit Cardiology, [facility] [address] [place] [address] Bolivar Doshi PA-C [address] [place] [address] Health Maintenance Due Date Last Done Comments Meningitis B Vaccine (Bexsero/Trumemba) (1 of 4 - Increased Risk) 1950 Zoster Vaccines (1 of 2) 08/26/1959 MENINGOCOCCAL (MENACTRA/MENVEO) (2 - Risk 2-dose series) 07/22/2014 05/27/2014 Adult Wellness Visit 03/25/2022 03/25/2021 Depression Screening 03/25/2022 03/25/2021 COVID-19 Vaccine ( season) 2024 03/29/2023, 08/22/2020, 07/15/2020 Influenza Vaccine [...] Directives occurred with: Not Discussed Care Teams Community Support Associate Relationship Specialty Start Date End Date Kathryn Dennison DO [address] [place] [address] PCP - General Family Medicine 09/28/16 documented as of this encounter
--- OUTSIDE RECORDS SUMMARY | 2024-05-10 11:25 | External Medical Summary | Summary of Care ---
Author Name Unknown Organization [facility] Address [address] [place] [address] Phone [phone] Care Team Providers Care Automotive Sales Professional Name Role Phone SanjeevKathryn rodriguez Leo WARD Primary Care Provider [phone] Reason for Visit * Reason Onset Date Comments Procedure 04/22/2024 Encounter Details Date Type Department Care Team (Late st Contact Info) Description 04/22/2024 Telephone General Surgery, [place] [address] [place] [address] Kathy Haskins MD [address] [place] [address] Procedure Allergies Active Allergy Reactions [...] 05/27/2014 Meningococcal Conjugate Vacc ine (Menactra/Menveo) 05/27/2014 PPD 09/26/2004 Pneumococcal Conjugate Vacc, 13 Valent (Prevnar) 05/27/2014 [...] Encounter - Noni Florian OSA - 04/22/2024 3:40 PM EDT Pt. Called back and accepted 05/05/24 at [facility] w/ Dr. Haskins for surgery . MEHREEN Carr * Telephone Encounter - Noni Florian OSA [...] 04/28/2024 10:00 AM EST Office Visit Cardiology, [facility] [address] [place] [address] Bolivar Doshi PA-C [address] [place] [address] 04/29/2024 3:30 PM EST Office Visit Gastroenterology, [facility] [address] [place] [address] Salo Bryant CRNP 132 [place] [address] 05/05/2024 Hospital Encounter OR [facility], Operating Room, [facility] - 2nd Floor [address] [place] [phone] Kathy Haskins MD [address] [place] [address] 06/02/2024 11:00 AM EST Office Visit Hematology/Oncology [facility] [address] [facility] [place] [phone] Sahra Bryant CRNP [address] [place] [address] 07/01/2024 8:20 AM EST Office Visit Family Practice [facility] [address] [place] [address] Kathryn Dennison DO [address] [place] [address] 07/01/2024 9:00 AM EST Pharmacy Pharmacy Hematology Oncology [facility] [address] [place] [address] [facility], [facility] Hem/Onc [address] [place] [address] Scheduled Procedures Name Priority Associated Diagnoses Date/Ti [...] Directives occurred with: Not Discussed Care Teams Automotive Sales Professional Relationship Specialty Start Date End Date Kathryn Dennison DO [address] [place] [address] PCP - General Family Medicine 09/28/16 documented as of this encounter
--- OUTSIDE RECORDS SUMMARY | 2024-05-10 11:25 | External Medical Summary | Summary of Care ---
Author Name Unknown Organization [facility] Address [address] [place] [address] Phone [phone] Care Team Providers Care Culled Fruit Packer Name Role Phone SanjeevKathryn rodriguez Leo WARD Primary Care Provider [phone] Reason for Visit * Reason Comments Medication Management Encounter Details Date Type Department Care Team (Late st Contact Info) Description 04/22/2024 9:00 AM EDT Pharmacy Pharmacy Hematology Oncology [facility] [address], [place] [id number] [facility], [facility] Hem/Onc [address] [place] [address] PV (polycythemia vera) ([facility])* Allergies Active Allergy Reactions Criticality Noted Date [...] Active Rosuvastatin Calcium 20 MG Oral Tablet (Crestor)Indicat ions:Dyslipidemi a, goal LDL below 100 TAKE 1 TABLET DAILY 90 Tablet 3 11/05/2023 Active hydroCHLOROthiaz chantel 25 MG Oral Tablet (Hydrodiuril) Take 1 [...] 03/03/2024 Active Hydroxyurea 500 MG Oral Capsule (Hydrea)Indicati ons:Polycythemia vera (HCC) TAKE 2 CAPSULES ON MONDAYS, WEDNESDAYS, AND FRIDAYS AND 1 CAPSULE ON SUNDAYS, TUESDAYS, THURSDAYS, AND SATURDAYS (DOSE INCREASE) 44 Capsule 4 03/27/2024 Active Nirmatrelvir&Rit onavir 300/100 20 x 150 MG & 10 x 100MG Oral Tablet Therapy Pack (Paxlovid (300/100)) Take 2 pink tablets of Nirmatrelvir and 1 white tablet of Ritonavir two times a day by mouth. 30 Tablet 03/31/2024 Discontinue d(Medicatio n List Clean Up) documented as of this encounter (statuses as of 04/22/2024) Active Problems Problem Noted Date Diagnosed Date Polycythemia vera 07/21/2023 History of atypical nevus [...] No 05/21/2023 Does the household have a [facility] source of income? 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 Dose: 1000mg MWF, 500mg AOD (DI 10/18/23) Administration: +/- food Start Date: 07/21/23 Primary Motion Picture Projectionist/Oncologist: Leo Bryant NP PLT goal: 400-500K HCT goal: < 45% Supportive Care Meds: none Prophylactic Meds: See anticoagulant below Relevant Chronic Medications: Category Medications Pertinent Notes Antihypertensives Metoprolol ER 50mg daily HCTZ 25mg daily Managed by cardiology Anticoagulation Apixaban 5mg BID Managed by cardiology Treatment History: None Dose adjustment/ medication hold: 08/17/23: DI to 500mg M-Sat and 1000mg 10/18/23: DI to 1000mg MWF and 500mg AOD Interval History: Reports having Covid at the beginning of the month but did not take Paxlovid due to DDI with apixaban. States symptoms are improving No concerns regarding hydrea, tolerating therapy well Changes to medication list since last visit? No Assessment and Plan: PLT at goal HCT at goal All other labs stable Continue current hydrea dose and monthly labs Advised pt she can delay next lab draw until OV 06/02/24 Assessment of compliance: compliant Dose adjustment needed based on lab or adverse drug reaction? No Follow up: 6 weeks OV/labs; 10 weeks MTM with labs Mirian Medina, PharmD, BCOP Clinical Pharmacist, [facility] Oral Chemotherapy [facility] 04/22/2024, 10:30 AM Monitoring Parameters: Estimated CrCl Serum creatinine: 0.9 mg/dL 11/01/23 0741 Estimated creatinine clearance: 48.2 mL/min Hepatitis panel Latest Reference Range & Units 07/26/23 10:57 Hepatitis B Surface Antigen Negative Negative Hepatitis B Surface Antibody, Quantitative mIU/mL <3.5 HEPATITIS B SURFACE ANTIBODY Rpt Hepatitis B Surface Antibody, Interpretation NOT immune to Hepatitis B Virus Hepatitis B Surface Antibody, Qualitative Negative Hepatitis B Core Antibodies IgG and IgM Negative Negative test N/A - pt postmenopausal Suggested lab monitoring Suggested labs (antineoplastic): CBCd weekly until stable, then monthly; CMP q3-4mon; status prior to initiation (if of reproductive potential) Treatment Parameters PLT 400-500K, HCT < 45%, ANC > 1500 Pertinent Labs: Latest Reference Range & Units 02/21/24 09:10 03/21/24 09:07 04/22/24 09:03 WBC 4.00 - 10.80 K/uL 7.01 5.24 5.14 RBC 3.85 - 5.15 M/uL 3.73 3.52 3.41 HGB 12.0 - 15.3 g/dL 14.6 14.1 13.7 HCT 36.0 - 45.2 % 43.0 40.8 40.5 MCV 81.5 - 97.5 fL 115.3 115.9 118.8 MCH 27.0 - 34.0 pg 39.1 40.1 40.2 MCHC 32.0 - 36.0 g/dL 34.0 34.6 33.8 RDW 11.5 - 15.5 % 13.8 13.5 13.8 PLT 140 - 400 K/uL 290 303 294 MPV 6.6 - 11.1 fL 9.1 9.3 9.3 CBC WITH WBC DIFFERENTIAL Rpt Rpt ! Rpt ! Absolute Neutrophils 1.80 - 7.70 K/uL 3.64 2.18 2.21 Time Spent on Encounter: 6 - 10 minutes Encounter Group: Hematology Encounter Interventions Item Category: Oral Chemotherapy Hydroxurea Problem/Rationale: Effectiveness: Needs additional monitoring - Medication Requires monitoring Safety: Needs additional monitoring - Medication Requires monitoring Pharmacist Intervention(s): Lab monitoring and Toxicity monitoring Magnitude of Intervention: Monitoring with direction (Level 1) documented in this encounter Plan of Treatment Upcoming Encounters Date Type Department Care Team (Late st Contact Info) Description 04/22/2024 2:15 PM EDT Office Visit General Surgery, [facility] [address] [place] [address] Kathy Haskins MD [address] [place] [address] 04/28/2024 10:00 AM EST Office Visit Cardiology, [facility] [address] [place] [address] Bolivar Doshi, PA-C [address] [facility] [place] [address] 06/02/2024 11:00 AM EST Office Visit [facility]ology[facility]On[facility] [phone] Sahra Bryant CRNP [address] [facility] [place] [address] 07/01/2024 8:20 AM EST Office Visit Family Practice [facility] [address] [place] [address] Kathryn Dennison DO [address] [place] [address] 07/01/2024 9:[address] [facility] Pharmacy Pharmacy Hematology Oncology [facility] [address] [place] [address] [facility], [facility] Hem/Onc [address] [place] [address] Health Maintenance Due Date Last Done Comments [...] Not on filedocumented as of this encounter Visit Diagnoses Diagnosis PV (polycythemia vera) (HCC)- Primary Polycythemia vera documented in this encounter Advance Directives * Full Code (Latest Code Status on File) Date Activated Date Inactivated Comments 05/25/2014 2:38 PM 05/27/2014 6:15 PM Question Answer Comments Discussion of Advance Directives occurred with: Not Discussed * Full Code Date Activated Date Inactivated Comments 05/25/2014 8:54 AM 05/25/2014 2:38 PM Question Answer Comments Discussion of Advance Directives occurred with: Not Discussed Care Teams Culled Fruit Packer Relationship Specialty Start Date End Date Kathryn Dennison DO [address] [place] [address] PCP - General Family Medicine 09/28/16 documented as of this encounter
--- OUTSIDE RECORDS SUMMARY | 2024-05-10 11:25 | External Medical Summary | Summary of Care ---
Author Name Unknown Organization [facility] Address [address] [place] [address] Phone [phone] Care Team Providers Care Tyre Fitter Name Role Phone JumaKathryn Leo WARD Primary Care Provider [phone] Reason for Visit * Auth/Cert Specialty Diagnoses / Procedures Referred By Presley becerra Referred To Contact Diagnoses Grade IV hemorrhoids Grade IV hemorrhoids [K64.3] Procedures ANORECTAL EXAM ,DIAG, REQUIRING ANESTHESIA HEMORRHOIDECTOMY, INTERNAL, 2 + COLUMNS ANORECTAL EXAM UNDER ANESTHESIA HEMORRHOIDECTOMY EXTERNAL AND INTERNAL COMPLEX Kathy Haskins MD [address] [place] [address] Phone: tel: fax: OR [facility], Operating Room, [facility] - 2nd Floor [address] [place] [phone] Phone: tel: Referral ID Status Reason Start Date Expiration Date Visits Re quested Visits Authorized [id number] Encounter Details Date Type Department Care Team (Latest Contact Info) Description 05/05/2024 11:07 AM EST - 05/05/2024 3:00 PM EST Hospital Encounter OR [facility], Operating Room, [facility] Floor [address] [place] [address] Kathy Haskins MD [address] [place] [address] Discharge Disposition: Home - Self Care Allergies Active Allergy Reactions Criticality Noted Date Comments Meloxicam Other (Please comment) 12/08/2020 Hyperkalemia Novocain Other (Please comment) 04/27/2010 Chest tightness, uses Carbocaine instead Rapid heart rate, chest tightness, feeling of doom/panic. Unlikely to be [place] allergy. Nearly always due to intravascular epi injection. Discussed with patient. documented as of this encounter (statuses as of 05/06/2024) Medications PROBIOTIC PO CAPS Take 1 Cap by mouth. Takes every 3 days Active Coenzyme Q10 (COQ10) 100 MG CAPS Take 1 Tab by mouth daily. Active Rosuvastatin Calcium 20 MG Oral Tablet (Crestor)Indic ations:Dyslipi demia, goal LDL below 100 TAKE 1 TABLET DAILY 90 Tablet 3 11/05/19 24 Active hydroCHLOROthi azide 25 MG Oral Tablet (Hydrodiuril) Take 1 Tablet by mouth in the morning. 90 Tablet 3 12/13/19 24 Active Metoprolol Succinate ER 50 MG Oral Tablet Extended Release 24 Hour (toPROL XL) TAKE 1 TABLET IN THE MORNING 90 Tablet 3 03/03/20 24 Active Hydroxyurea 500 MG Oral Capsule (Hydrea)Indica tions:Polycyth emia vera (HCC) TAKE 2 CAPSULES ON MONDAYS, WEDNESDAYS, AND FRIDAYS AND 1 CAPSULE ON SUNDAYS, TUESDAYS, THURSDAYS, AND SATURDAYS (DOSE INCREASE) 44 Capsule 4 03/27/20 24 Active Gabapentin 300 MG Oral Capsule (Neurontin) Take 1 Capsule by mouth in the morning and 1 Capsule before bedtime. Start taking 2 days prior to surgery and continue until the prescription is finished.. 24 Capsule 04/22/20 24 Active oxyCODONE HCl 5 MG Oral Tablet (Oxy IR) Take 1 Tablet by mouth every 6 hours as needed for Pain, Breakthrough. 30 Tablet 05/05/20 24 Active Apixaban 5 MG Oral Tablet (Eliquis) Take 1 Tablet by mouth in the morning and 1 Tablet before bedtime. HOLD for 2 days after surgery. OK to restart in evening of 05/07/2024. 180 Tablet 3 05/05/20 24 Active Acetaminophen 325 MG Oral Tablet (Tylenol) Take 3 Tablets by mouth every 6 hours. 60 Tablet 05/05/20 24 Active Eliquis 5 MG Oral Tablet (Apixaban) TAKE 1 TABLET TWICE A DAY 180 Tablet 3 12/14/19 24 024 Discontinued documented as of this encounter (statuses as of 05/06/2024) Active Problems Problem Noted Date Diagnosed Date [...] as of this encounter (statuses as of 05/06/2024) Resolved Problems Problem Noted Date Diagnosed Date [...] as of this encounter (statuses as of 05/06/2024) Immunizations Name Administration Dates Next Due COVID-19 [...] No 05/21/2023 Does the household have a [employer] source of income? (Household - for ages [...] AM EDT documented as of this encounter Last Filed Vital Signs Vital Sign Reading Time Taken Comments Blood Pressure 138/74 05/05/2024 2:25 PM EST Pulse 60 05/05/2024 2:25 PM EST Temperature 36.2 C (97.2 F) 05/05/2024 1:55 PM ES T Respiratory Rate 16 05/05/2024 2:25 PM EST Oxygen Saturation 100% 05/05/2024 2:25 PM EST Inhaled Oxygen Concentration - - Weight 74 kg (163 lb 1.6 oz) 05/05/2024 11:37 AM EST Height - - Body Mass Index 26.73 06/01/2023 8:28 AM EST documented in this encounter Functional Status * Are you [...] Varsha Garrido RN documented in this encounter Discharge Instructions * Discharge Instr - AVS* Felipe Gomez MD - 05/05/2024 1:08 PM EST POST-OPERATIVE INSTRUCTIONS FOR AMBULATORY ANORECTAL SURGERY Wound Care -Take all the bandages off in the late afternoon or evening and take the first hot bath -The bath water should be as warm as tolerable, without causing stroud -It is NOT necessary to add anything to the water (such as Epsom salt) -Hot baths should be used at least 3-4 times each day AND especially after each bowel movement -The "packing" (if present) should be removed from the anus during the first bath -Expect some oozing or slight bleeding -No bandages are necessary, but may be used as desired to absorb any drainage: plain gauze or maxi pads Eliquis - hold Eliquis for 2 days after surgery. Start on evening of 05/07/24 Pain -The anesthetic that was injected at the time of surgery should last 3-6 hours -It is normal for the anal area to be very painful for several days to a week, and especially afterthe initial bowel movements -HOT BATHS PROVIDE THE BEST PAIN RELIEF, and should be used liberally -The prescription you have been given is for a strong narcotic pain medication. Take 1-2 tabs every4-6 hours as needed for pain -Use the pain medication as necessary, but be aware that it will cause some degree of constipation -You should take Tylenol (XS, 1000mg) every 6 hours. Use the oxycodone in addition to that as needed. -Dermaplast (or something like it) is a freezing spray available at most drug stores (or on [employer])and is inexpensive. Patients before have reported that this feels very good on the area to relieve pain. Diet -Eat as much fiber as possible: fruits, vegetables, salads, whole grain breads, bran cereals, bran muffins, prunes and prune juice -Drink lots of fluids: water and juices -Avoid spicy foods until the wounds are healed Bowel Movements -It is common not to move your bowels for 2 or 3 days after surgery -It is important to try to avoid becoming constipated -A high fiber diet is essential -Take a stool softener such as Metamucil once or twice a day, and/or Colace three times a day -Excessive pressure in the rectum (or even pain) may indicate the need to have a bowel movement -If a laxative is required usually try two tablespoons of Milk of Magnesia; if this is not effective, take Miralax -THE FIRST BOWEL MOVEMENT HURTS!!! Activity -You may resume normal activities, including exercising, as soon as you feel up to it -You can return to work whenever you feel able -There is no way you can do yourself any harm or affect the success of the surgery by excessive activity Things To Watch For -A small amount of bleeding or oozing is normal, especially with bowel movements; if bleeding is heavy, or does not stop after bowel movements, call me immediately. -It is not unusual to have difficulty urinating after surgery; often it is necessary it urinate while sitting in the hot bath; frequent urination of very small volumes is abnormal and requires that you call me. If you have not urinated at all by the first evening, you must call. Follow-up Information -If there are questions or problems either I or one of my partners can be reached 24 hours a day, seven days a week. Call the office and the service will take a message and arrange a call back. -If you would like, and these measures are not working, I can call in an order for a very strong numbing ointment. This ointment comes from a special pharmacy, and insurance does not cover the cost. It is $56. If you think you want to try this, just call my office and ask the nurses for Dr. Haskins's BLT ointment. documented in this encounter Nursing Notes * Franci Sal RN - 05/05/2024 2:11 PM EST Arrived postop. Awake and alert. Color good. Resp easy. Skin wrm and dry * Rubina Reid RN - 05/05/2024 1:50 PM EST Post Anesthesia Care Unit Discharge Note [address] [address] Dept. Vanna Art Vital Signs Stable Discharged from PACU as per discharge criteria (see discharge criteria sheet). Time: 1350 Reported to: Kelsey WATSON Taken to In/ Out Surgery, accompanied by Responsible adult Rubina WATSON. Transported via: Stretcher Belongings with Patient: Not Applicable Prescriptions on Chart: Yes Patient meets criteria to be transferred or discharged * Adelita Parra RN - 04/30/2024 1:48 PM EST NO ANESTHESIA EVALUATION REQUESTED PER CASE DOCUMENTATION. Presurgery instructions sent to patient via [employer] message. Pre-operative chart review completed-instructions provided based on current medication list in EPIC. PREOP PATIENT INFORMATION AND EDUCATION: MEDICATION INSTRUCTIONS: The day of surgery/procedure, you may TAKE the following medications with a sip of water up to 2 hours prior to your arrival time: METOPROLOL XL ROSUVASTATIN AVOID/ DO NOT TAKE any medications the morning of surgery/procedure that are not listed above. STOP taking the following medications the noted number of days prior to surgery/procedure unless otherwise specified by your surgeon: STOP TODAY: PROBIOTIC COQ10 TO STOP ELIQUIS 3 DAYS PRIOR TO SURGERY DATE Please follow surgeon's instructions regarding use of Aspirin, Coumadin, Plavix, Eliquis, and any other blood thinner including NSAIDs (non-steroidal anti- inflammatory drugs, eg, Advil, Ibuprofen, Motrin, Aleve, Naproxen); if you have any questions regarding your anticoagulation therapy please contact your surgeon's clinic. Please verify any proposed stoppage of your anticoagulation therapy with the agent's prescribing provider. 10 days prior to surgery/procedure Stop all Herbal supplements, Green Tea, Turmeric, Melatonin, CBD, THC, etc. Stop all Vitamins (including Vitamin E) 24 hours prior to surgery/procedure DO NOT consume any alcohol. DO NOT use medical marijuana. DO NOT smoke or use tobacco products of any kind after midnight prior to surgery. *Using any of these products may increase your risks of procedural complications. IF IT IS LESS THAN RECOMMENDED STOPPAGE TIME PLEASE STOP AT TIME OF NOTIFICATION. FASTING RECOMMENDATIONS: To reduce risk, it is important for all elective surgery patients to follow the specific fasting guidelines listed below. If you have received more stringent guidelines, please follow the MOST RESTRICTIVE guidelines that you have been provided. DO NOT EAT after midnight on the night prior to your surgery date. You are allowed to drink clear liquids up to two hours prior to arrival time to the hospital or surgery center. Examples of clear liquids include water, clear fruit juice without pulp, clear carbonated beverages, clear tea, and black coffee. Any drinks given by your surgical service take as directed. Infant/pediatric patients who currently drink breast milk, formula, and non-human milk must not eat after midnight. These patients are allowed to drink only the liquids listed below up to two hours prior to arrival time to the hospital or surgery center: Ingested Material Minimum Fasting Time Clear liquid After midnight up to 2 hours prior to arrival time Breast milk Up to 4 hours prior to arrival time Infant formula Up to 6 hours prior to arrival time Non-human milk Up to 6 hours prior to arrival time THE DAY BEFORE YOUR SURGERY: -Drink plenty of fluid the day before your surgery. Contact your surgeon's office if you develop any of the following within 2 weeks of surgery: A cold Infection Fever Shingles Chicken pox or exposure to chicken pox Open areas such as scrapes, cuts, stroud or other skin conditions Rashes GENERAL INSTRUCTIONS FOR PREPARING FOR SURGERY: BATHING INSTRUCTIONS: Bathe the evening prior to and the morning of surgery/procedure. Cleanse your body using ONLY anti-bacterial soap (eg, Dial, Safeguard) or any specific soap/cleansers and instructions provided by your surgeon (eg, Chlorhexidine). -You should brush your teeth the morning of surgery. Do NOT apply any lotions, powders, sprays, creams, oils, make-up, or deodorants after bathing. No hairspray, or nail south african on fingers or toes. Day of surgery/procedure do not use tampons. If you wear contacts wear your eyeglasses if available otherwise bring your contact supplies with you to remove them prior to your surgery/procedure. If you wear glasses or dentures, please bring cases in which you can store them during your surgery. Please remove all piercings and jewelry and leave them at home. Wear comfortable and loose clothing. -Please leave all valuables at home. -If you use a CPAP and are staying overnight, please bring your mask and tubing with you to the hospital. -If you use an assistive mobility device (walker, cane, etc), please label it with your name and bring to hospital. -An escort bull driver is required if you are being discharged the same day of the surgery. You should have a responsible adult over the age of 18 [address] you home. This person should be present with youin the hospital at the time of discharge and for the first 24 hours after the surgery to support your needs. If you are taking a taxi home, you must have your responsible green party accompany you in the taxi ride home at the time of discharge. OR times subject to change. Please check voicemail messages the day/evening before your surgery forany updates. PRE-OP: You will be taken to the pre-op area where your vital signs (blood pressure, pulse and temperature)will be taken. Any preparations that need to be done will be done there. When it is time for your surgery, you will be taken to the operating room. PARENTS OF PEDIATRIC PATIENTS WILL BE ALLOWED TO STAY WITH THEIR CHILDREN UNTIL THEY ARE ESCORTED TO THE OPERATING ROOM OUTPATIENT SURGERY PATIENTS: After your surgery you will be taken to the Same Day Surgery Unit when you are awake and will go home from there. You will get instructions about your home care before you leave. Arrange to have someone drive you home from the hospital. You may not drive for 24 hours after anesthesia. You must havean adult stay with you at home for 24 hours after your operation. This is very important. If you are not able to comply with these guidelines, your Short Stay surgery cannot be done. ADMISSION PATIENTS: After your stay in the recovery area, you will be taken to your room. Your family may visit you in your room based on current visitation policy. If a next day discharge is expected, it is important to make arrangements for a bull driver to take you home. Please be aware our visitation policies are subject to change Professionals, attendants, caregivers or family members are allowable visitors for patients with intellectual, developmental or cognitive disabilities, communication barriers or behavioral concerns. Because patients' and families' needs vary, they will be taken into account when applying visitation restrictions. [address] [address] Contact #: [phone] before 4:00 PM If calling after 4:00 PM you may reach a voicemail, leave a message,Someone will return your call. Park in the parking lot in front of the [employer] Building, enter through the front door. Takesierravaalisha M to the 2nd floor and report to the Short Procedure Unit directly on the left upon exiting the elevator. THANK YOU FOR CHOOSING [facility]! documented in this encounter OR Notes * OR Surgeon - Kathy Haskins MD - 05/05/2024 1:09 PM EST [facility]-[address] [address] OPERATIVE REPORT Name: Vanna Art Date: 05/05/2024 Time: 1:09 PM Location: [facility] Service: Colon and Rectal Surgery Date of Operation: 05/05/2024 Pre-op Diagnosis: symptomatic hemorrhoids Post-op Diagnosis: Same Surgeon: Kathy Haskins MD Assistants: Felipe Gomez MD Anesthesia: Monitored Local Anesthesia with Sedation Operation: 3 column hemorrhoidectomy, internal and external components Findings: large, engorged hemorrhoids Case Acuity: Elective Wound Class: Dirty Infection Present at the Time of Surgery: No Surgical Clean Closure Bundle Used: N/A (non-GI case) Irrigation of the Fascia / Subcutaneous Space: N/A Irrigation of the Organ Space: N/A Open abdomen with wound VAC: N/A Specimen and Disposition: Hemorrhoids Estimated Blood Loss: 20 mL Fluids: 1100 mL Urine Output: NA Drains/Implants: none Complications: none immediate Postoperative Condition: good Indications and History: The patient is a 83 year old female with symptomatic hemorrhoidal disease. The risks, benefits, complications, treatment options, and expected outcomes were discussed with the patient and/or family in detail. The patient concurred with the proposed plan, giving informed consent. Description of Operation: The patient was seen in the Pre-op Holding Room and the site of surgery properly noted/marked. The patient was taken to Operating Room [place] [address], identified as Vanna Art and the procedure verified as anorectal exam under anesthesia, excisional hemorrhoidectomy. The patient was positioned on the table in the prone jackknife position prior to induction of anesthesia. Adequate patient comfort was ensured. After the induction of monitored anesthesia care and a Time Out to confirm patient and procedure, the perineum was sterilely prepped and draped in the usual fashion and anesthetized with 40 mL of 0.25% Marcaine to the pudendal nerves. A detailed digital rectal exam was performed which was essentially unremarkable except for hemorrhoids. The anus was inspected with anoscope and hemorrhoids were identified, largest in the left lateral position, anteriorand right lateral positions. The left lateral hemorrhoid was addressed first. Both the internal andexternal components of the hemorrhoid column were grasped with a DeBakey and excised in the avascular plane off of the internal sphincter muscle, starting from the perianal skin just beyond the external hemorrhoid and working proximally. Just prior to complete removal the hemorrhoid a clamp was placed at the apex. A suture ligature was then placed at the apex of the hemorrhoid. Hemostasis was achieved within the defect. The defect was closed with a running 2-0 vicryl suture, including bites of the internal sphincter muscle to close the space. The anterior and right lateral hemorrhoids were addressed next in exactly the same fashion as the first. The suture lines were evaluated prior to completion of the procedure to ensure hemostasis and care was taken to ensure that there was sufficient tissue between the suture lines. The anal canal was widely patent with healthy intact anoderm between the excision sites. The procedure was terminated. All needle, sharps, sponge and lap pad counts were correct. The patient tolerated the procedure well. The patient was taken to the recovery area in stable condition. Attestation: I was present and scrubbed for the entire procedure Kathy Haskins MD [address] [facility] [id number] documented in this encounter Plan of Treatment Upcoming Encounters Date Type Department Care Team (Late st Contact Info) Description 05/28/2024 10:30 AM EST Office Visit General Surgery, [address] [address] Viola Robledo DO [address] [place] [address] 06/02/2024 11:00 AM EST Office Visit Hematology/Oncology [facility] [address] [place] [address] Sahra Bryant CRNP [address] [facility] [place] [address] 07/01/2024 8:20 AM EST Office Visit Family Practice [facility] [address] [place] [address] Kathryn Dennison DO [address] [facility] [place] [address] 07/01/2024 9:00 AM EST Pharmacy Pharmacy Hematology Oncology [facility] [address] [place] [address] Gm, [facility] Hem/Onc [address] [place] [address] 11/03/2024 9:30 AM EDT Office Visit Cardiology, [facility] [address] [place] [address] Bolivar Doshi PA-C [address] [place] [address] Pending Results Name Type Priority Associated Diagnoses Date /Time SURGICAL PATHOLOGY Pathology Routine Grade IV hemorrhoids 05/05/2024 12:46 PM EST Scheduled Orders Name Type Priority Associated Diagnoses Orde r Schedule SURGICAL PATHOLOGY Pathology Routine Grade IV hemorrhoids Release Upon Ordering for 1 Occurrences starting 05/05/2024, 1 completed Health Maintenance Due Date Last Done Comments [...] as of this encounter Visit Diagnoses Diagnosis Grade IV hemorrhoids- Primary Unspecified hemorrhoids with other complication documented in this encounter Administered Medications Inactive Administered Medications - up to 3 most recent administrations Medication Order MAR Action Action Date Dose Rate Site Acetaminophen (Tylenol) tab 975 mg 975 mg, Oral, ONCE, On Sun05/05/24 at 1200, For 1 dose, With small amount of water If order is duplicate, cancel this order Maximum of 4 grams (4000 mg) per day., Pre-Op Given 05/05/2024 11:48 AM EST 975 mg HYDROmorphone (Dilaudid) inj 0.5 mg 0.5 mg, IV Push, Q10 MIN PRN Pain, Moderate, Pain, Severe, Starting on Sun05/05/24 at 1126, Until Sun05/05/24 at 1902, For 4 doses, PACU Given 05/05/2024 1:19 PM EST 0.5 mg isolyte 500 mL bolus infusion Intravenous, Administer entire volume within 60 minutes or less. Plasma-LYTE 148, isolyte-S, and isolyte-S pH 7.4 are considered equivalent - including for MAR barcode scanning., ONCE, 1 dose, On Sun05/05/24 at 1200, Pre-Op New Bag 05/05/2024 11:47 AM EST 500 mL 5 00 mL/hr Isolyte-S pH 7.4 infusion Intravenous, at 100 mL/hr, For Periop use. Plasma-LYTE 148, isolyte-S, and isolyte-S pH 7.4 are considered equivalent - including for MAR barcode scanning., CONTINUOUS, Starting on Sun05/05/24 at 1200, Until Sun05/05/24 at 1902, Pre-Op New Bag 05/05/2024 1:00 PM EST Restarted 05/05/2024 12:10 PM EST Continue from Pre-Op 05/05/2024 11:59 AM EST 10 0 mL/hr oxyCODONE (Oxy IR) tab 5 mg 5 mg, Oral, ONCE PRN Pain, Mild, Starting on Sun05/05/24 at 1126, Until Sun05/05/24 at 1424, For 1 dose, Post-op Given 05/05/2024 2:24 PM EST 5 mg oxygen GAS Inhalation, OXYGEN, First dose on Sun05/05/24 at 1600, Until Discontinued, Device/Managed by: Low Flow Device, Goal SPO2 (%): 91-95, Starting Device: Nasal Cannula, Initial Flow Rate (LPM): 2, Lowest Support: Nasal Cannula: Flow 0-6 LPM. Titrate up/down by 1 LPM., Titration Interval: Q2 minutes and as needed., Notify Provider: For sudden DECREASE in resting SPO2 to less than 85% and when escalating delivery device., Wean patient off Oxygen when the oxygen saturation is greater than or equal to 93% documented in this encounter Active and Recently Administered Medications Times are shown in EST. Scheduled Medication Order 05/03/2024 05/04/2024 05/05/2024 Acetaminophen (Tylenol) tab 975 mg (COMPLETED) 975 mg, Oral, ONCE, On Sun05/05/24 at 1200, For 1 dose, With small amount of water If order is duplicate, cancel this order Maximum of 4 grams (4000 mg) per day., Pre-Op 1148 (Given - Provid er: Noni Daniel RN) isolyte 500 mL bolus infusion (COMPLETED) Intravenous, Administer entire volume within 60 minutes or less. Plasma-LYTE 148, isolyte-S, and isolyte-S pH 7.4 are considered equivalent - including for MAR barcode scanning., ONCE, 1 dose, On Sun05/05/24 at 1200, Pre-Op 1147 (New Bag - Prov ider: Noni Daniel, WALTER) ondansetron (Zofran) inj 4 mg 4 mg, IV Push, ONCE, On Sun05/05/24 at 1200, For 1 dose, PACU 1200 (Due) oxygen GAS Inhalation, OXYGEN, First dose on Sun05/05/24 at 1600, Until Discontinued, Device/Managed by: Low Flow Device, Goal SPO2 (%): 91-95, Starting Device: Nasal Cannula, Initial Flow Rate (LPM): 2, Lowest Support: Nasal Cannula: Flow 0-6 LPM. Titrate up/down by 1 LPM., Titration Interval: Q2 minutes and as needed., Notify Provider: For sudden DECREASE in resting SPO2 to less than 85% and when escalating delivery device., Wean patient off Oxygen when the oxygen saturation is greater than or equal to 93% Continuous Medication Order 05/03/2024 05/04/2024 05/05/2024 Isolyte-S pH 7.4 infusion Intravenous, at 100 mL/hr, For Periop use. Plasma-LYTE 148, isolyte-S, and isolyte-S pH 7.4 are considered equivalent - including for MAR barcode scanning., CONTINUOUS, Starting on Sun05/05/24 at 1200, Until Sun05/05/24 at 1902, Pre-Op 1148 (New Bag - Prov ider: Noni Daniel RN)1159 (Continue from Pre-Op - Provider: Rubi Codroba CRNA)1209 (Paused - Provider: Rubi Cordoba CRNA - Comment: Switch to gravity)1210 (Restarted - Provider: Rubi Cordoba CRNA)1300 (New Bag - Provider: Ned Brooks CRNA) PRN Medication Order 05/03/2024 05/04/2024 05/05/2024 bupivacaine Liposome 20 mL, bupivacaine 20 mL inj (CANCELED) ONCE PRN INTRA PROCEDURE, Starting on Sun05/05/24 at 1218, Until Sun05/05/24 at 1302, Intra-Op 1218 (Given - Provid er: Kathy Haskins MD - Comment: PRN to rectum) gelatin (Gelfoam) 12-7 MM sponge (CANCELED) ONCE PRN INTRA PROCEDURE, Starting on Sun05/05/24 at 1255, Until Sun05/05/24 at 1302, Intra-Op 1255 (Given - Provid er: Kathy Haskins MD - Comment: PER RECTUM) HYDROmorphone (Dilaudid) inj 0.5 mg 0.5 mg, IV Push, Q10 MIN PRN Pain, Moderate, Pain, Severe, Starting on Sun05/05/24 at 1126, Until Sun05/05/24 at 1902, For 4 doses, PACU 1319 (Given - Provid er: Rubina Reid RN) oxyCODONE (Oxy IR) tab 5 mg (COMPLETED) 5 mg, Oral, ONCE PRN Pain, Mild, Starting on Sun05/05/24 at 1126, Until Sun05/05/24 at 1424, For 1 dose, Post-op 1424 (Given - Provid er: Franci Sal RN) sodium chloride IR 0.9 % irrigation (CANCELED) ONCE PRN INTRA PROCEDURE, Starting on Sun05/05/24 at 1222, Until Sun05/05/24 at 1302, Intra-Op 1222 (Given - Provid er: Kathy Haskins MD - Comment: PRN back table) surgicel 4x8 hemostat (CANCELED) ONCE PRN INTRA PROCEDURE, Starting on Sun05/05/24 at 1255, Until Sun05/05/24 at 1302, Intra-Op 1255 (Given - Provid er: Kathy Haskins MD - Comment: PER RECTUM) documented in this encounter Advance Directives * Full Code (Latest Code Status on File) Date Activated Date Inactivated Comments 05/25/2014 2:38 PM 05/27/2014 6:15 PM Question Answer Comments Discussion of Advance Directives occurred with: Not Discussed * Full Code Date Activated Date Inactivated Comments 05/25/2014 8:54 AM 05/25/2014 2:38 PM Question Answer Comments Discussion of Advance Directives occurred with: Not Discussed Care Teams Tyre Fitter Relationship Specialty Start Date End Date Kathryn Dennison DO [address] [place] [address] PCP - General Family Medicine 09/28/16 documented as of this encounter
--- OUTSIDE RECORDS SUMMARY | 2024-05-10 11:25 | External Medical Summary | Summary of Care ---
Author Name Unknown Organization [facility] Address [address] [place] [address] Phone [phone] Care Team Providers Care Driver License Reviewing Officer Name Role Phone AlexisKathryn castillo Leo WARD Primary Care Provider [phone] Reason for Visit * Reason Onset Date Comments Procedure 04/25/2024 Attempt to provi de pre / post op Instructions Encounter Details Date Type Department Care Team (Late st Contact Info) Description 04/25/2024 Telephone General Surgery, [place] [address] [place] [address] Kathy Haskins MD [address] [place] [address] Procedure (Attempt to provide pre / post o... Allergies Active Allergy Reactions Criticality Noted Date Comments Meloxicam Other (Please comment) 12/08/2020 Hyperkalemia Novocain Other (Please comment) 04/27/2010 Chest tightness, uses Carbocaine instead Rapid heart rate, chest tightness, feeling of doom/panic. Unlikely to be [place] allergy. Nearly always due to intravascular epi injection. Discussed with patient. documented as of this encounter (statuses as of 04/25/2024) Medications Medication Sig Dispensed Refills Start Date [...] as of this encounter (statuses as of 04/25/2024) Active Problems Problem Noted Date Diagnosed Date [...] as of this encounter (statuses as of 04/25/2024) Resolved Problems Problem Noted Date Diagnosed Date Resolved Date Essential and other specified forms of tremor 11/29/19 13 02/20/2017 Asthma with severity to be determined 12/16/2009 09/17/2014 Overview: Per Asthma Taxonomy ICD-10 update of inactive term Dyslipidemia, goal to be determined 06/03/2009 12/01/2009 Overview: Per Lipid Taxonomy. EXTRINSIC ASTHMA, UNSPEC 05/11/2005 Irritable bowel syndrome documented as of this encounter (statuses as of 04/25/2024) Immunizations Name Administration Dates Next Due COVID-19 [...] Telephone Encounter - Asiya Marks LPN - 04/25/2024 11:44 AM EDT Phone call to patient regarding up coming procedure to provide Instructions for pre and post op, message left for patient to review Instruction sent via Badoo with number provided if she has questions or concerns. documented in this encounter Plan of Treatment Upcoming Encounters Date Type Department Care Team (Latest Contact Info) Description 04/28/2024 10:00 AM EST Office Visit Cardiology, [facility] [address] [place] [address] Bolivar Doshi PA-C [address] [place] [address] 05/05/2024 2:46 PM EST Hospital Encounter OR [facility], Operating Room, [facility] - 2nd Floor [address] [place] [phone] Kathy Haskins MD [address] [place] [address] 05/05/2024 2:46 PM EST - 05/05/2024 4:04 PM EST Surgery OR [facility], Operating Room, [facility] - 2nd Floor [address] [place] [phone] Kathy Haskins MD [address] [place] [address] ANORECTAL EXAM UNDER ANESTHESIA 06/02/2024 11:00 AM EST Office [facility] [address] [place] [phone] Sahra Bryant CRNP [address] [place] [address] 07/01/2024 8:20 AM EST Office Visit Family [facility] [address] [place] [address] Kathryn Dennison DO [address] [place] [address] 07/01/2024 9:00 AM EST Pharmacy Pharmacy Hematology Oncology [facility] [address] [place] [address] [facility] Hem[facility]Onc [address] [place] [address] Scheduled Procedures Name Priority Associated Diagnoses Date/Ti me ANORECTAL EXAM UNDER ANESTHESIA Grade IV hemorrhoids 05/05/2024 2:46 PM EST HEMORRHOIDECTOMY EXTERNAL AN D INTERNAL COMPLEX Grade IV hemorrhoids 05/05/2024 2:46 PM EST Health Maintenance Due Date Last Done Comments [...] Directives occurred with: Not Discussed Care Teams Driver License Reviewing Officer Relationship Specialty Start Date End Date Kathryn Dennison DO [address] [place] [address] PCP - General Family Medicine 09/28/16 documented as of this encounter
--- OUTSIDE RECORDS SUMMARY | 2024-05-10 11:25 | External Medical Summary | Summary of Care ---
Author Name Unknown Organization [facility] Address [address] [place] [address] Phone [phone] Care Team Providers Care Director Of Sales Name Role Phone SanjeevKathryn rodriguez Leo WARD Primary Care Provider [phone] Reason for Visit * Reason Onset Date Comments Procedure 04/22/2024 Encounter Details Date Type Department Care Team (Late st Contact Info) Description 04/22/2024 Telephone General Surgery, [place] [address] [place] [address] Kathy Haskins MD [address] [place] [address] Procedure Allergies Active Allergy Reactions Criticality Noted Date Comments Meloxicam Other (Please comment) 12/08/2020 Hyperkalemia Novocain Other (Please comment) 04/27/2010 Chest tightness, uses Carbocaine instead Rapid heart rate, chest tightness, feeling of doom/panic. Unlikely to be [place] allergy. Nearly always due to intravascular epi injection. Discussed with patient. documented as of this encounter (statuses as of 04/23/2024) Medications Medication Sig Dispensed Refills Start Date [...] as of this encounter (statuses as of 04/23/2024) Active Problems Problem Noted Date Diagnosed Date [...] as of this encounter (statuses as of 04/23/2024) Resolved Problems Problem Noted Date Diagnosed Date Resolved Date Essential and other specified forms of tremor 11/29/19 13 02/20/2017 Asthma with severity to be determined 12/16/2009 09/17/2014 Overview: Per Asthma Taxonomy ICD-10 update of inactive term Dyslipidemia, goal to be determined 06/03/2009 12/01/2009 Overview: Per Lipid Taxonomy. EXTRINSIC ASTHMA, UNSPEC 05/11/2005 Irritable bowel syndrome documented as of this encounter (statuses as of 04/23/2024) Immunizations Name Administration Dates Next Due COVID-19 [...] encounter Miscellaneous Notes * Telephone Encounter - Davina Corral LPN - 04/23/2024 2:51 PM EDT Noted * Telephone Encounter - Chelsea Dunne OSA - 04/22/2024 3:48 PM EDT Pt states she spoke to someone else after this call. They were talking to her about her colonoscopyorder. She wanted to make them or us aware that she does not want to schedule that until at least after she has this upcoming procedure done. She is not sure who she spoke with and it does not seem to be documented. * Telephone Encounter - Noni Florian OSA - 04/22/2024 3:40 PM EDT Pt. Called back and accepted 05/05/24 at [facility] w/ Dr. Haskins for surgery . MEHREEN [...] 04/28/2024 10:00 AM EST Office Visit Cardiology, [facility] [address] [place] [address] Bolivar Doshi PA-C [address] [place] [address] 05/05/2024 2:46 PM EST Hospital Encounter OR [facility], Operating Room, [facility] - 2nd Floor [address] [place] [phone] Kathy Haskins MD [address] [place], [place] [phone] 05/05/2024 2:46 PM EST - 05/05/2024 4:04 PM EST Surgery OR [facility], Operating Room, [facility] Floor [address] [place] [phone] Kathy Haskins MD [address] [place] [address] ANORECTAL EXAM UNDER ANESTHESIA 06/02/2024 11:00 AM EST Office Visit Hematology/Oncology [facility] [place] [address] [place] [phone] Sah[facility] Bryant CRNP [address] [facility] [address] 07/01/2024 8:20 AM EST Office Visit Family Practice [facility] [address] [place] [address] Kathryn Dennison DO [address] [place] [address] 07/01/2024 9:00 AM EST Pharmacy Pharmacy Hematology Oncology [facility] [address] [place] [address] [facility] [place] Hem[facility]Onc [address] [place] [address] Scheduled Procedures Name Priority Associated Diagnoses Date/Ti [...] 03/25/2021 Depression Screening 03/25/2022 03/25/2021 COVID-19 Vaccine (4 - season) 2024 03/29/2023, 08/22/2020, 07/15/2020 Influenza [...] Directives occurred with: Not Discussed Care Teams Director Of Sales Relationship Specialty Start Date End Date Kathryn Dennison DO [address] [place] [address] PCP - General Family Medicine 09/28/16 documented as of this encounter
--- OUTSIDE RECORDS SUMMARY | 2024-05-10 11:25 | External Medical Summary | Summary of Care ---
Author Name Unknown Organization [facility] Address [address] [place] [address] Phone [phone] Care Team Providers Care Red Hat Engineer Name Role Phone AlexisKathryn castillo Leo WARD Primary Care Provider [phone] Reason for Visit * Reason Onset Date Comments Procedure 04/25/2024 Attempt to provi de pre / post op Instructions Encounter Details Date Type Department Care Team (Late st Contact Info) Description 04/25/2024 Telephone General Surgery, [place] [address] [place] [address] Kathy Haskins MD [address] [place] [address] Procedure (Attempt to provide pre [...] encounter Miscellaneous Notes * Telephone Encounter - Kisha Alejandra OSA - 04/25/2024 1:24 PM EDT Pt called in stating that she went over instructions and would like to speak to Pat as she has further questions/ concerns. Please call and advise. * Telephone Encounter - Asiya Marks LPN - 04/25/2024 11:44 AM EDT Phone call to patient regarding up coming procedure to provide Instructions for pre and post op, message left for patient to review Instruction sent via Netcordia with number provided if she has questions or concerns. documented in this encounter Plan of Treatment Upcoming Encounters Date Type Department Care Team (Latest Contact Info) Description 04/28/2024 10:00 AM EST Office Visit Cardiology, [facility] [address] [place] [address] Bolivar Doshi PA-C [address] [place] [address] 05/05/2024 2:46 PM EST Hospital Encounter OR [facility], Operating Room, [facility] - 2nd Floor [address] [place] [phone] Kathy Haskins MD [address] [place] [address] 05/05/2024 2:46 PM EST - 05/05/2024 4:04 PM EST Surgery OR [facility], Operating Room, [facility] - 2nd Floor [address] [place] [phone] Kathy Haskins MD [address] [place] [address] ANORECTAL EXAM UNDER ANESTHESIA 06/02/2024 11:00 AM EST Office Visit Hematology/Oncology [facility] [address] [place] [phone] Sahra Bryant CRNP [address] [place] [address] 07/01/2024 8:20 AM EST Office Visit Family Practice [facility] [address] [place] [address] Kathryn Dennison, [address] [place] [address] 07/01/2024 9:00 AM EST Pharmacy Pharmacy Hematology Oncology [facility] [address] [place] [address] [facility] Hem[facility]Onc [address] [place] [address] Scheduled Procedures Name Priority Associated Diagnoses Date/Ti [...] Directives occurred with: Not Discussed Care Teams Red Hat Engineer Relationship Specialty Start Date End Date Kathryn Dennison DO [address] [place] [address] PCP - General Family Medicine 09/28/16 documented as of this encounter
--- OUTSIDE RECORDS SUMMARY | 2024-05-10 11:25 | External Medical Summary | Summary of Care ---
Author Name Unknown Organization [facility] Address [address] [place] [address] Phone [phone] Care Team Providers Care Multiple Sclerosis Nurse Name Role Phone Kathryn Dennison DO Primary Care Provider [phone] Reason for Visit * Reason Comments NEW PATIENT Rectal discharge * Evaluate & Treat - Unlimited Visits (Within 10 days (routine)) - Authorized Specialty Diagnoses / Procedures Referred By Presley becerra Referred To Contact General Surgery Diagnoses Rectal discharge Kathryn Dennison DO [address] [place] [address] Referral ID Status Reason Start Date Expiration Date Visits Requested Visits Authorized [id number] Authorized Specialty Services Required 03/17/2024 [id number] Encounter Details Date Type Department Care Team (Late st Contact Info) Description 04/22/2024 2:15 PM EDT Office Visit General Surgery, [facility] [address] [place] [address] Kathy Haskins MD [address] [place] [address] Anal discharge*; Grade IV hemorrhoids; Rectal discharge [R19.8] Allergies Active Allergy Reactions Criticality Noted Date Comments Meloxicam Other (Please comment) 12/08/2020 Hyperkalemia Novocain Other (Please comment) 04/27/2010 Chest tightness, uses Carbocaine instead Rapid heart rate, chest tightness, feeling of doom/panic. Unlikely to be LA allergy. Nearly always due to intravascular epi injection. Discussed with patient. documented as of this encounter (statuses as of 04/24/2024) Medications Medication Sig Dispensed Refills Start Date [...] as of this encounter (statuses as of 04/24/2024) Active Problems Problem Noted Date Diagnosed Date [...] as of this encounter (statuses as of 04/24/2024) Resolved Problems Problem Noted Date Diagnosed Date Resolved Date Essential and other specified forms of tremor 11/29/19 13 02/20/2017 Asthma with severity to be determined 12/16/2009 09/17/2014 Overview: Per Asthma Taxonomy ICD-10 update of inactive term Dyslipidemia, goal to be determined 06/03/2009 12/01/2009 Overview: Per Lipid Taxonomy. EXTRINSIC ASTHMA, UNSPEC 05/11/2005 Irritable bowel syndrome documented as of this encounter (statuses as of 04/24/2024) Immunizations Name Administration Dates Next Due COVID-19 [...] Date Smoking Tobacco: Never Smokeless Tobacco: Never Tobacco Cessation:Counseling Given: Not Answered Alcohol Use Standard Drinks/Week Comments Yes 0 [...] on file documented as of this encounter Last Filed Vital Signs Vital Sign Reading Time Taken Comments Blood Pressure 134/60 04/22/2024 2:06 PM EDT Pulse 61 04/22/2024 2:06 PM EDT Temperature 35.5 C (95.9 F) 04/22/2024 2:06 PM ED T Respiratory Rate - - Oxygen Saturation - - Inhaled Oxygen Concentration - - Weight 74.6 kg (164 lb 6.4 oz) 04/22/2024 2:06 P M EDT Height - - Body Mass Index 26.94 06/01/2023 8:28 AM EST documented in this encounter Functional Status Functional Status Response [...] No 05/25/2014 documented as of this encounter Patient Instructions * Patient Instructions* Kathy Haskins MD - 04/22/2024 2:41 PM EDT POST-OPERATIVE INSTRUCTIONS FOR AMBULATORY ANORECTAL SURGERY Wound [...] each bowel movement -The "packing" (if present) can come out with your first bowel movement. It disintegrates and can be flushed safely. I can also be removed from the anus during the first bath if you cannot tolerate it any longer. -Expect some oozing or slight bleeding -No bandages are necessary, but may be used as desired to absorb any drainage: plain gauze or maxi pads Pain -The anesthetic that was injected at [...] should take Tylenol (XS, 1000mg) every 6 hours and ibuprofen (3-4 tabs, 600-800mg) every 6 hours around the clock for the first day or two. That means, you should be taking either Tylenol or ibuprofen every 3 hours. Use the oxycodone in addition to that as needed. -Dermoplast (or something like it) is a freezing spray available at most drug [employer] (or on [employer])and is inexpensive. Patients before have reported that [...] a message and arrange a call back. documented in this encounter Progress Notes * Kathy Haskins MD - 04/22/2024 2:15 PM EDT COLORECTAL SURGERY [facility] Vanna Art [id number] 04/22/2024 Cc: rectal discharge HPI: Vanna Art is a 83 year old female referred by Kathryn Dennison DO who presents in clinic for rectal discharge. After a bm has drainage, loose Bms. Irritated. Always needs a pad. Bloody tinge. Really bleeding one time. On eliquis and hydrea. Drainage clear with a pink tinge. H/o hemorrhoidal banding. H/o IBS that has settled. 2 children, biggest 8 lb 7. No tearing or vacuum use. From message from patient to PCP: I had mentioned some rectal drainage. The drainage is now tinged with pink from blood and there is quite a bit of rectal bleeding after a bowel movement even though I am not constipated. You had mentioned to let you know if it continued. It is becoming quite a concern for me since I am on Eliquis and Hydrea to alleviate blood clots. I am wondering if you can arrange for me to see a congressional assistant before too long. Last Colonoscopy: 12/04/2013 Recommendation: - Discharge patient to home (ambulatory). - Regular diet. - Await pathology results. - Use Bentyl (dicyclomine) 10 mg PO BID 30 min AC for 6 weeks. - Return to GI clinic in 2 months. - Repeat colonoscopy in 10 years for screening purposes. Melonie Hoyos DO Review of Systems: Review of Systems Constitutional: Negative for activity change, appetite change, fatigue, fever and unexpected weightchange. HENT: Negative for ear pain and hearing loss. Eyes: Negative for visual disturbance. Respiratory: Negative for chest tightness and shortness of breath. Cardiovascular: Negative for chest pain and palpitations. Gastrointestinal: Negative for abdominal distention, abdominal pain and anal bleeding. Genitourinary: Negative for difficulty urinating. Musculoskeletal: Negative for arthralgias. Hematological: Does not bruise/bleed easily. All other systems reviewed and negative. Past Medical History: Diagnosis Date matt age 48 Past Surgical History: Procedure Laterality Date COLONOSCOPY, DIAGNOSTIC (RECTUM) 11/23/97 negative (scanned) COLONOSCOPY, DIAGNOSTIC (RECTUM) 12/05/06 Small int. hemorrhoids and diverticulae - Dr. Fu COLONOSCOPY, DIAGNOSTIC (RECTUM) 12/04/2013 microscopic colitis/COLONOSCOPY FLEXIBLE PROXIMAL DIAGNOSTIC performed by Melonie Hoyos DO at ENDOSCOPY [facility] ECHO, STRESS (EXERCISE) negative EGD, W/ENDOSCOPIC US 03/19/2013 UPPER GI ENDOSCOPY ENDOSCOPIC ULTRASOUND performed by Melonie Hoyos DO at [facility] EGD, W/ENDOSCOPIC US 05/04/2014 pancreatic cyst, cytology indeterminant/ESOPHAGOGASTRODUODENOSCOPY (EGD), FLEXIBLE, TRANSORAL, ENDOSCOPIC ULTRASOUND performed by Melonie Hoyos DO at ENDOSCOPY [facility] EXERCISE ECHO 10/29 EF 60-65%; no ischemic changes HEMORRHOIDECTOMY, INTERNAL W/ BANDING 11/2002 Hemorrhoid(S) Ligation banded in office. HOLTER COMPLETE (COMM PRAC) PAC's PARTIAL REMOVAL OF PANCREAS N/A 05/25/2014 05/25/2014 LAPAROSCOPIC PANCREATECTOMY DISTAL SUBTOTAL performed by Chacorta Hernandez MD at OR [facility] PUNCTURE DRAINAGE BREAST CYST Breast Biopsy REMOVAL OF KIDNEY STONE 1989 Kidney Stone Removal REMOVAL OF SPLEEN, TOTAL 05/25/2014 at time of partial pancreatectomy 05/25/2014 REMOVE GALLBLADDER 1963 Cholecystectomy Current Outpatient Medications Medication Sig Dispense Refill PROBIOTIC PO CAPS Take 1 Cap by mouth. Takes every 3 days Coenzyme Q10 (COQ10) 100 MG CAPS Take 1 Tab by mouth daily. Rosuvastatin Calcium 20 MG Oral Tablet (Crestor) TAKE 1 TABLET DAILY 90 Tablet 3 hydroCHLOROthiazide 25 MG Oral Tablet (Hydrodiuril) Take 1 Tablet by mouth in the morning. 90 Tablet 3 Eliquis 5 MG Oral Tablet (Apixaban) TAKE 1 TABLET TWICE A DAY 180 Tablet 3 Metoprolol Succinate ER 50 MG Oral Tablet Extended Release 24 Hour (toPROL XL) TAKE 1 TABLET IN THEMORNING 90 Tablet 3 Hydroxyurea 500 MG Oral Capsule (Hydrea) TAKE 2 CAPSULES ON MONDAYS, WEDNESDAYS, AND FRIDAYS AND 1 CAPSULE ON SUNDAYS, TUESDAYS, THURSDAYS, AND SATURDAYS (DOSE INCREASE) 44 Capsule 4 Gabapentin 300 MG Oral Capsule (Neurontin) Take 1 Capsule by mouth in the morning and 1 Capsule before bedtime. Start taking 2 days prior to surgery and continue until the prescription is finished.. 24 Capsule 0 No current facility-administered medications for this visit. Review of patient's allergies indicates: Allergen Reactions Meloxicam Other (Please comment) Hyperkalemia Novocain Other (Please comment) Chest tightness, uses Carbocaine instead Rapid heart rate, chest tightness, feeling of doom/panic. Unlikely to be LA allergy. Nearly always due to intravascular epi injection. Discussed with patient. Family History Problem Relation Name Age of Onset Cancer Father age 49 - cancer common bile duct Heart Disorder Mother age 84 -CHF Social History Tobacco Use Smoking status: Never Smokeless tobacco: Never Vaping Use Vaping status: Never Used Substance Use Topics Alcohol use: Yes Comment: rare Drug use: No Physical Examination: BP 134/60 | Pulse 61 | Temp 35.5 C (95.9 F) | Wt 74.6 kg (164 lb 6.4 oz) | BMI 26.94 kg/m | BSA 1.86 m Physical Exam Constitutional: General: She is not in acute distress. Appearance: She is well-developed. HENT: Head: Normocephalic and atraumatic. Eyes: Pupils: Pupils are equal, round, and reactive to light. Cardiovascular: Rate and Rhythm: Normal rate. Pulmonary: Effort: Pulmonary effort is normal. No respiratory distress. Abdominal: Palpations: Abdomen is soft. Genitourinary: Comments: External Exam: Chronically prolapsed hemorrhoid/rectal mucosa in the left posterolateral position. Evidence of mucous and slight blood. MARIANELA: Normal tone, no mucosal abnormalities. Anoscopy: (Performed by Dr. Haskins) The anoscope was inserted into the anal canal. The patient tolerated this well. A circumferential inspection of the anal canal was performed and was notable for internal hemorrhoids, but primary problem is left posterolateral hemorrhoid. Musculoskeletal: General: Normal range of motion. Cervical back: Normal range of motion. Skin: General: Skin is warm and dry. Findings: No erythema. Neurological: Mental Status: She is alert and oriented to person, place, and time. Labs: NA Radiology: NA Assessment: 83 year old female with chronic prolapshing and irritated hemorrhoid responsible for her presenting complaints. Plan: EUA, excisional hemorrhoidectomy. Kathy Haskins MD [address] [place] [address] 04/22/2024 (This note was completed using the dictation program Fluency Direct. As such, there may be misspellings, word substitutions, or other variations that should not change the essence of the clinical content of this encounter note. If there is need for further clarification, please direct questions to the provider listed above.) documented in this encounter Nursing Notes * Kelsea Cloud LPN - 04/22/2024 2:07 PM EDT Chief Complaint Patient presents with NEW PATIENT Rectal discharge Patient says she has discharge and quite a bit of bleeding. Mostly after a bowel movement. Not all the time. It is better than it was because her pcp told her to take metamucil, it is better but it needs addressed. documented in this encounter Plan of Treatment Upcoming Encounters Date Type Department Care Team (Latest Contact Info) Description 04/28/2024 10:00 AM EST Office Visit Cardiology, [facility] [address] [place] [address] Bolivar Doshi PA-C [address] [place] [address] 05/05/2024 2:46 PM EST Hospital Encounter OR [facility], Operating Room, [facility] - 2nd Floor [address] [place] [phone] Kathy Haskins MD [address] [place], [place] [id number] 05/05/2024 2:46 PM EST - 05/05/2024 4:04 PM EST Surgery OR [facility], Operating Room, [facility] - 2nd Floor [address] [place] [phone] Kathy Haskins MD [address] [place] [address] ANORECTAL EXAM UNDER ANESTHESIA 06/02/2024 11:00 AM EST Office Visit Hematology/Oncology [facility] [address] [place] [phone] Sahra Bryant CRNP [address] [place] [address] 07/01/2024 8:20 AM EST Office Visit Family Practice [facility] [address] [place] [address] Kathryn Dennison DO [address] [place] [address] 07/01/2024 9:00 AM EST Pharmacy Pharmacy Hematology Oncology [facility] [address] [place] [address] [facility] Hem/Onc [address] [place] [address] Scheduled Orders Name Type Priority Associated Diagnoses Orde r Schedule COLONOSCOPY, DIAGNOSTIC (RECTUM) Procedures Routine Anal discharge Ordered: 04/22/2024 Scheduled Procedures Name Priority Associated Diagnoses Date/Ti [...] as of this encounter Visit Diagnoses Diagnosis Anal discharge- Primary Other symptoms involving digestive system Grade IV hemorrhoids Unspecified hemorrhoids with other complication Rectal discharge [R19.8] Other symptoms involving digestive system Grade IV hemorrhoids- Primary Unspecified hemorrhoids with other complication Grade IV hemorrhoids Unspecified hemorrhoids with other complication documented in this encounter Advance Directives * Full Code (Latest Code Status on File) Date Activated Date Inactivated Comments 05/25/2014 2:38 PM 05/27/2014 6:15 PM Question Answer Comments Discussion of Advance Directives occurred with: Not Discussed * Full Code Date Activated Date Inactivated Comments 05/25/2014 8:54 AM 05/25/2014 2:38 PM Question Answer Comments Discussion of Advance Directives occurred with: Not Discussed Care Teams Multiple Sclerosis Nurse Relationship Specialty Start Date End Date Kathryn Dennison DO [address] [place] [address] PCP - General Family Medicine 09/28/16 documented as of this encounter
--- OUTSIDE RECORDS SUMMARY | 2024-05-10 11:25 | External Medical Summary | Summary of Care ---
Author Name Unknown Organization [facility] Address [address] [place] [address] Phone [phone] Care Team Providers Care Typing Pool Supervisor Name Role Phone Kathryn Dennison DO Primary Care Provider [phone] Reason for Visit * Reason Comments Outpatient Testing Encounter Details Date Type Department Care Team (Late st Contact Info) Description 04/22/2024 8:50 AM EDT [facility] [place] [address] [place] [phone] [place], Lab Scenery [address] [place] [address] Polycythemia vera (HCC) Allergies Active Allergy Reactions Criticality Noted Date [...] a day by mouth. 30 Tablet 03/31/2024 4 Discontinue d(Medicatio n List Clean Up) documented [...] as of this encounter Miscellaneous Notes * Result Encounter Note - Irma Camargo CRNP - 04/22/2024 1:30 PM EDT Labs are ok MSM documented in this encounter Plan of Treatment Upcoming Encounters Date Type Department Care Team (Late st Contact Info) Description 04/22/2024 2:15 PM EDT Office Visit General Surgery, [facility] [address] [facility] [place] [address] Kathy [facility] MD [address] [facility] [address] 04/28/2024 10:00 AM EST Office Visit Cardiology, [facility] [address] [facility] [place] [address] Bolivar Doshi PA-C [facility] [place] [address] 06/02/2024 11:00 AM EST Office Visit Hematology/Oncology [facility] [place] [address] [place] [address] Sahra Bryatn CRNP [address] [facility] [place] [address] 07/01/2024 8:20 AM EST Office Visit Family [facility] [address] [place] [address] Kathryn Dennison DO [address] [place] [address] 07/01/2024 9:00 AM EST Pharmacy Pharmacy Hematology Oncology [facility] [address] [place] [address] [facility] Hem/Onc [address] [place] [address] Health Maintenance Due Date Last Done Comments [...] Not on filedocumented as of this encounter Procedures Procedure Name Priority Date/Time Associated Diagnosis Comments DIFFERENTIAL, AUTOMATED STAT 04/22/2024 9:03 AM EDT Polycythemia vera (HCC) CBC STAT 04/22/2024 9:03 AM EDT Polycythemia vera (HCC) CBC STAT 04/22/2024 9:03 AM EDT Polycythemia vera (HCC) documented in this encounter Results * (ABNORMAL) DIFFERENTIAL, AUTOMATED (04/22/2024 9:03 AM EDT) WBC 5.14 4.00 - 10.80 K/uL 04/22/2024 9:16 AM EDT [facility] [place] Neutrophils % 43.0 40.0 - 75.0 % 04/22/2024 9:16 AM EDT [facility] Lymphocytes % 42.6(H) 18.0 - 42.0 % 04/22/2024 9:16 AM EDT [facility] [place] Monocytes % 13.4(H) 1.0 - 11.0 % 04/22/2024 9:16 AM EDT [facility] [place] Eosinophils % 0.8 0.0 - 6.0 % 04/22/2024 9:16 AM EDT [facility] [place] Basophils % 0.2 0.0 - 2.0 % 04/22/2024 9:16 AM EDT [facility] [place] Absolute Neutrophils 2.21 1.80 - 7.70 K/uL 04/22/2024 9:16 AM EDT [facility] [place] Absolute Lymphocytes 2.19 1.00 - 4.80 K/ul 04/22/2024 9:16 AM EDT [facility] [place] [facility] Absolute Monocytes 0.69 0.00 - 1.10 K/uL 04/22/2024 9:16 AM EDT [facility] [place] [facility] Absolute Eosinophils 0.04 0.00 - 0.70 K/uL 04/22/2024 9:16 AM EDT [facility] 56 Absolute Basophils 0.01 0.00 - 0.20 K/uL 04/22/2024 9:16 AM EDT [facility] Blood Venous blood specimen / Unknown Venipuncture / Unknown 04/22/2024 9:03 AM EDT 04/22/2024 9:03 AM EDT Sahra WOMACK LAB BLOOD ORDER ROB [facility] [address] [place] [address] * CBC (04/22/2024 9:03 AM EDT) WBC 5.14 4.00 - 10.80 K/uL 04/22/2024 9:16 AM EDT [facility] RBC 3.41 3.85 - 5.15 M/uL 04/22/2024 9:16 AM EDT [facility] HGB 13.7 12.0 - 15.3 g/dL 04/22/2024 9:16 AM EDT [facility] HCT 40.5 36.0 - 45.2 % 04/22/2024 9:16 AM EDT [facility] MCV 118.8 81.5 - 97.5 fL 04/22/2024 9:16 AM EDT [facility] MCH 40.2 27.0 - 34.0 pg 04/22/2024 9:16 AM EDT [facility] MCHC 33.8 32.0 - 36.0 g/dL 04/22/2024 9:16 AM EDT [facility] RDW 13.8 11.5 - 15.5 % 04/22/2024 9:16 AM EDT [facility] PLT 294 140 - 400 K/uL 04/22/2024 9:16 AM EDT [facility] MPV 9.3 6.6 - 11.1 fL 04/22/2024 9:16 AM EDT [facility] Blood Venous blood specimen / Unknown Venipuncture / Unknown 04/22/2024 9:03 AM EDT 04/22/2024 9:03 AM EDT Sahratanesha Lewistasha WOMACK LAB BLOOD ORDER ROB [facility] [place] [address] [place] [address] documented in this encounter Visit Diagnoses Diagnosis Polycythemia vera (HCC) documented in this encounter Advance Directives * Full Code (Latest Code Status on File) Date Activated Date Inactivated Comments 05/25/2014 2:38 PM 05/27/2014 6:15 PM Question Answer Comments Discussion of Advance Directives occurred with: Not Discussed * Full Code Date Activated Date Inactivated Comments 05/25/2014 8:54 AM 05/25/2014 2:38 PM Question Answer Comments Discussion of Advance Directives occurred with: Not Discussed Care Teams Typing Pool Supervisor Relationship Specialty Start Date End Date Kathryn Dennison DO [address] [place] [address] [place] [address] PCP - General Family Medicine 09/28/16 documented as of this encounter
--- OUTSIDE RECORDS SUMMARY | 2024-05-10 11:25 | External Medical Summary | Summary of Care ---
Author Name Unknown Organization [facility] Address [address] [place] [address] Phone [phone] Care Team Providers Care Research & Insights Executive Name Role Phone Kathryn Dennison DO Primary Care Provider [phone] Reason for Visit * Reason Comments Follow Up Pre-op Clearance Encounter Details Date Type Department Care Team (Latest Contact Info) Description 04/28/2024 10:00 AM EST Office Visit Cardiology, [facility] [address] [place] [address] Bolivar Doshi PA-C [address] [place] [address] Preoperative cardiovascular examination*; Paroxysmal atrial fibrillation (HCC); Moderate mitral regurgitation; Dyslipidemia, goal LDL below 100; Symptomatic PVCs; Palpitations; Atrial tachycardia (HCC) Allergies Active Allergy Reactions Criticality Noted Date Comments Meloxicam Other (Please comment) 12/08/2020 Hyperkalemia Novocain Other (Please comment) 04/27/2010 Chest tightness, uses Carbocaine instead Rapid heart rate, chest tightness, feeling of doom/panic. Unlikely to be [place] allergy. Nearly always due to intravascular epi injection. Discussed with patient. documented as of this encounter (statuses as of 04/29/2024) Medications Medication Sig Dispensed Refills Start Date [...] prescription is finished.. 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 documented as of this encounter (statuses as of 04/29/2024) Resolved Problems Problem Noted Date Diagnosed Date Resolved Date Essential and other specified forms of tremor 11/29/19 13 02/20/2017 Asthma with severity to be determined 12/16/2009 09/17/2014 Overview: Per Asthma Taxonomy ICD-10 update of inactive term Dyslipidemia, goal to be determined 06/03/2009 12/01/2009 Overview: Per Lipid Taxonomy. ADVANCE DIRECTIVE INFORMATION 12/18/2006 04/28/2024 Overview: Yes, Patient instructed to provide copy of advance directive for provider to review and to be scanned into Electronic Medical Record EXTRINSIC ASTHMA, UNSPEC 05/11/2005 Irritable bowel syndrome documented as of this encounter (statuses as of 04/29/2024) Immunizations Name Administration Dates Next Due COVID-19 [...] Sign Reading Time Taken Comments Blood Pressure 128/80 04/28/2024 9:54 AM EST Pulse 56 04/28/2024 9:54 AM EST Temperature - - Respiratory Rate - - Oxygen Saturation 97% 04/28/2024 9:54 AM EST Inhaled Oxygen Concentration - - Weight 74.8 kg (165 lb) 04/28/2024 9:54 AM EST Height - - Body Mass Index 27.04 06/01/2023 8:28 AM EST documented in this [...] as of this encounter Progress Notes * Bolivar Doshi PA-C - 04/28/2024 10:00 AM EST History of Present Illness: Vanna Art is a very pleasant 83-year-old female here today for routine cardiology follow-up evaluation. Tested positive on 03/28. Heart irregular at that time. Excisional hemorrhoidectomy scheduled on 05/05/2024 at [facility] with Dr. Haskins. Possible future screening colonoscopy noted Episodes of palpitations have been much less frequent following addition of HCTZ in May 2023. No chest pain or discomfort. No unusual shortness of breath. Notes climbing 16 steps in her condo 5 to 6 times a day without difficulty. Patient able to ambulate 2 flights of stairs without cardiopulmonary symptoms or limitation. No fluid retention. No positional dizziness or lightheadedness. No syncope. Patient Active Problem List Diagnosis ADVANCE DIRECTIVE INFORMATION Hyperlipidemia with target LDL less than 100 Calculus of kidney Symptomatic PVCs Pancreatic cyst H/O splenectomy IPMN (intraductal papillary mucinous neoplasm) Paroxysmal atrial fibrillation (HCC) History of atypical nevus History of actinic keratoses Polycythemia vera (HCC) Grade IV hemorrhoids Past Medical History: Diagnosis Date matt age 48 Past Surgical History: Procedure Laterality Date COLONOSCOPY, DIAGNOSTIC (RECTUM) 11/23/97 negative (scanned) COLONOSCOPY, DIAGNOSTIC (RECTUM) 12/05/06 Small int. hemorrhoids and diverticulae - Dr. Fu COLONOSCOPY, DIAGNOSTIC (RECTUM) 12/04/2013 microscopic colitis/COLONOSCOPY FLEXIBLE PROXIMAL DIAGNOSTIC performed by Melonie Hoyos DO at ENDOSCOPY [facility] ECHO, STRESS (EXERCISE) negative EGD, W/ENDOSCOPIC US 03/19/2013 UPPER GI ENDOSCOPY ENDOSCOPIC ULTRASOUND performed by Melonie Hoyos DO at OR [facility] EGD, W/ENDOSCOPIC US 05/04/2014 pancreatic cyst, cytology indeterminant/ESOPHAGOGASTRODUODENOSCOPY (EGD), FLEXIBLE, TRANSORAL, ENDOSCOPIC ULTRASOUND performed by Melonie Hoyos DO at ENDOSCOPY [facility] EXERCISE ECHO 10/29 EF 60-65%; no ischemic changes HEMORRHOIDECTOMY, INTERNAL W/ BANDING 11/2002 Hemorrhoid(S) Ligation banded in office. HOLTER COMPLETE (COMM PRAC) PAC's PARTIAL REMOVAL OF PANCREAS N/A 05/25/2014 05/25/2014 LAPAROSCOPIC PANCREATECTOMY DISTAL SUBTOTAL performed by Chacorta Hernandez MD at [place] [facility] BREAST CYST Breast Biopsy REMOVAL OF KIDNEY STONE 1989 Kidney Stone Removal REMOVAL OF SPLEEN, TOTAL 05/25/2014 at time of partial pancreatectomy 05/25/2014 REMOVE GALLBLADDER 1963 Cholecystectomy Family History Problem Relation Name Age of Onset Cancer Father age 49 - cancer common bile duct Heart Disorder Mother age 84 -CHF Social History Socioeconomic History Marital status: Spouse name: Not on file Number of children: Not on file Years of education: Not on file Highest education level: Not on file Occupational History Not on file Social Needs Tobacco Use Smoking status: Never Smoker Smokeless tobacco: Never Used Substance and Sexual Activity Alcohol use: Yes Comment: 2 drinks/week Drug use: No Sexual activity: Not on file Lifestyle Complete Review of Systems is as stated above, negative, or noncontributory. Review of patient's allergies indicates: Allergen Reactions Meloxicam Other (Please comment) Hyperkalemia Novocain Other (Please comment) Chest tightness, uses Carbocaine instead Rapid heart rate, chest tightness, feeling of doom/panic. Unlikely to be [place] allergy. Nearly always due to intravascular epi injection. Discussed with patient. Current Outpatient Medications Medication Sig Dispense Refill [...] and continue until the prescription is finished.. (Patient not taking: Reported on 04/28/2024) 24 Capsule 0 No current facility-administered medications for this visit. OBJECTIVE/PHYSICAL EXAMINATION: BP 128/80 | Pulse 56 | Wt 74.8 kg (165 lb) | SpO2 97% | BMI 27.04 kg/m | BSA 1.86 m General: A&Ox3. NAD. HENT: Normocephalic. Atraumatic. Eyes: PER. Conjunctiva pink, sclera clear. Neck: No carotid bruits. No JVD. Heart: Regular 60 bpm. No murmur appreciated. Lungs: Clear to auscultation. Abdomen: +BS. Extremities: +varicosities. No significant edema. No clubbing. No cyanosis. Limited neurological examination is without focal deficits. Pulses: Posterior tibial=2/4. Data: LDL cholesterol 68 mg/dL on 11/01/2023 January 09, 2024 TTE Interpretation Summary (as per Dr. Roy): The qualitative LV ejection fraction is 55-59% (normal). The LV wall thickness is mildly increased (concentric). The left ventricular wallmotion is normal. The left atrium is normal sized (< 35 ml/m^2). The left ventricular diastolic function is mildly abnormal (grade I). Mild tricuspid regurgitation is present. Moderate mitral regurgitation is present. April 28, 2024 EKG: Sinus bradycardia at 54 bpm Serum creatinine: 0.9 mg/dL 11/01/23 0741 Estimated creatinine clearance: 48.5 mL/min ASSESSMENT: Preoperative Cardiology consultation - excisional hemorrhoidectomy scheduled on 05/05/2024 at [facility] with Dr. Haskins. Symptomatic ectopy Symptomatic paroxysmal atrial fibrillation Asymptomatic SVT [id number] Score 4-5 points (age greater than 75, female sex, ? 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 Okay to hold apixaban(Eliquis) 3 days prior, resuming postoperatively as soon as determined to be safe. Continue metoprolol without perioperative interruption. Hold HCTZ AM of procedure, resuming postoperatively as hemodynamics permit. With no new or worsening tachypalpitations well as patient request, will hold off on repeat ambulatory EKG or the use of antiarrhythmic therapy. Continue metoprolol succinate, Eliquis, rosuvastatin, risk factor, lifestyle modification. Resting echocardiography planned for Summer 2024 to follow the mitral regurgitation Routine cardiology follow-up in 6 months or as needed. Bolivar Doshi PA-C Department of Cardiology I spent a total of 30-39 minutes (exact time 32 mins) on the date of service in preparation, delivery, and documentation of the care provided to Vanna Art excluding any time spent in the performance of separately billed services. This visit involved medical care services related to at least one serious condition or complex condition requiring ongoing care. This chart was completed in part ut [employer] Speech Voice Recognition Software. Grammatical errors, random word insertions, prounoun errors, and incomplete sentences are an occasional consequence of this system due to software limitations, ambient noise, and hardware issues. Any formal questions or concerns about the content, text, or information contained within the body of this dictation should be directly addressed to theprovider for clarification. documented in this encounter Procedure Notes * Cayden Dejesus DO - 04/28/2024 10:03 AM ESTAssociated Order(s): EKG REASON FOR STUDY: ROUTINE;ROUTINE CONCLUSIONS: Sinus bradycardia Otherwise normal ECG When compared with ECG of 19-Apr-2023 15:11, No significant change was found Ventricular Rate: 54 Atrial Rate: 54 OR Interval: 176 QRS Duration: 86 QT/QTc: 426/403 ms P-R-T [place]: 50 : 47 : 54 degrees documented in this encounter Nursing Notes * Sylvia Butler CMA - 04/28/2024 9:52 AM EST Examination Room: 2 Name: Vanna Art Date of : (1940) Reason for Visit: 6m Interim Hospitalization(s): none Problems/Concerns: denied Chest Pain/SOB: denied My [facility] is a way you can talk to your provider online through e-mail. Would you like to sign up? I can activate it for you? ALREADY ACTIVE Patient was instructed to not get up on the exam table until directed and assisted by their provider; patient is to remain seated in the chair/ wheelchair/ exam table for fall prevention and safety reasons. Patient is aware to have assistance to step down off exam table with personnel. Patient voiced full comprehension of instructions. documented in this encounter Plan of Treatment Upcoming Encounters Date Type Department Care Team (Latest Contact Info) Description 05/05/2024 2:46 PM EST Hospital Encounter OR [facility], Operating Room, [facility] - 2nd Floor [address] [place] [phone] Kathy Haskins MD [address] [place] [address] 05/05/2024 2:46 PM EST - 05/05/2024 4:04 PM EST Surgery OR [facility], Operating Room, [facility] - 2nd Floor [address] [place] [phone] Kathy Haskins MD [address] [place] [address] ANORECTAL EXAM UNDER ANESTHESIA 05/28/2024 10:30 AM EST Office Visit General Surgery, [facility] [address] [facility] [place] [address] Viola Robledo DO [address] [place] [address] 06/02/2024 11:00 AM EST Office Visit Hematology/Oncology [facility] [address] [place] [address] Sahra Bryant, SHANTA [address] [place] [address] 07/01/2024 8:20 AM EST Office Visit Family Practice [facility] [address] [facility] [place] [address] Kathryn Dennison, DO 132 [facility] [place] [address] 07/01/2024 9:00 AM EST Pharmacy Pharmacy Hematology Oncology [facility] [address] [place] [address] [facility] [place] [facility] Hem[facility]Onc [address] [place] [address] 11/03/2024 9:30 AM EDT Office Visit Cardiology, [facility] [address] [place] [address] Bolivar Doshi PA-C [address] [place] [address] Scheduled Procedures Name Priority Associated Diagnoses Date/Ti [...] Procedure Name Priority Date/Time Associated Diagnosis Comments OR ECG ROUTINE ECG W/LEAST 12 LDS I&R ONLY Routine 04/28/2024 10:03 AM EST Paroxysmal atrial fibrillation (HCC) documented in this encounter Results * EKG (04/28/2024 10:03 AM EST) 04/28/2024 10:0 3 AM EST Narrative Procedure Note Cayden Dejesus DO - 04/28/2024 10:03 AM EST REASON FOR STUDY: ROUTINE;ROUTINE CONCLUSIONS: Sinus bradycardia Otherwise normal ECG When compared with ECG of 19-Apr-2023 15:11, No significant change was found Ventricular Rate: 54 Atrial Rate: 54 OR Interval: 176 QRS Duration: 86 QT/QTc: 426/403 ms P-R-T [place]: 50 : 47 : 54 degrees Bolivar Doshi PA-C EKG [facility] CARDIOLOGY documented in this encounter Visit Diagnoses Diagnosis Grade IV hemorrhoids- Primary Unspecified hemorrhoids with other complication Preoperative cardiovascular examination- Primary Pre-operative cardiovascular examination Paroxysmal atrial fibrillation (HCC) Atrial fibrillation Moderate mitral regurgitation Mitral valve disorders Dyslipidemia, goal LDL below 100 Other and unspecified hyperlipidemia Symptomatic PVCs Other premature beats Palpitations Atrial tachycardia (HCC) Other specified cardiac dysrhythmias Grade IV hemorrhoids Unspecified hemorrhoids with other [...] Directives occurred with: Not Discussed Care Teams Research & Insights Executive Relationship Specialty Start Date End Date Kathryn Dennison DO [address] [place] [address] PCP - General Family Medicine 09/28/16 documented as of this encounter"
--- OUTSIDE RECORDS SUMMARY | 2024-05-10 11:25 | External Medical Summary | Summary of Care ---
Author Name Unknown Organization [facility] Address [address] [place] [address] Phone [phone] Care Team Providers Care Psychiatric Aide Name Role Phone SanjeevKathryn rodriguez Leo WARD Primary Care Provider [phone] Reason for Visit * Reason Onset Date Comments Procedure 04/22/2024 Encounter Details Date Type Department Care Team (Late st Contact Info) Description 04/22/2024 Telephone General Surgery, [facility] [address] [place] [address] Kathy Haskins MD [address] [place] [address] Procedure Allergies Active Allergy Reactions [...] encounter Miscellaneous Notes * Telephone Encounter - Chelsea Dunne OSA [...] Pt. Called back and accepted 05/05/24 at [facility] w/ Dr. Haskins for surgery . [...] 04/28/2024 10:00 AM EST Office Visit Cardiology, [facility] [address] [place] [address] Bolivar Doshi PA-C [address] [place] [address] 04/29/2024 3:30 PM EST Office Visit Gastroenterology, [facility] [place] [address] Salo Bryant CRNP [address] [place] [address] 05/05/2024 Hospital Encounter OR [facility], Operating Room, [facility] - 2nd Floor [address] [place] [phone] Kathy Haskins MD [address] [place], [place] [id number] 06/02/2024 11:00 AM EST Office Visit Hematology/Oncology [facility] [address] [place] [phone] Sahra Bryant CRNP [address] [facility] [place] [address] 07/01/2024 8:20 AM EST Office Visit Family Practice [facility] [address] [place] [address] Kathryn Dennison DO [address] [place] [address] 07/01/2024 9:00 AM EST Pharmacy Pharmacy Hematology Oncology [facility] [address] [place] [address] [facility] [place] Hem/Onc [address] [place] [address] Scheduled Procedures Name Priority Associated Diagnoses Date/Ti [...] Directives occurred with: Not Discussed Care Teams Psychiatric Aide Relationship Specialty Start Date End Date Kathryn Dennison DO [address] [place] [address] PCP - General Family Medicine 09/28/16 documented as of this encounter
--- OUTSIDE RECORDS SUMMARY | 2024-05-10 11:26 | External Medical Summary | Summary of Care ---
Author Name Unknown Organization [facility] Address [address] [place] [address] Phone [phone] Care Team Providers Care Diet Consultant Name Role Phone Kathryn Dennison DO Primary Care Provider [phone] Reason for Visit * Reason Onset Date Comments Medication Question 03/28/2024 Encounter Details Date Type Department Care Team (Late st Contact Info) Description 03/28/2024 Telephone Family Practice [facility] [address] [place] [address] Kathryn Dennison DO [address] [facility] [place] [id number] Medication Question Allergies Active Allergy Reactions Criticality Noted Date Comments Meloxicam Other (Please comment) 12/08/2020 Hyperkalemia Novocain Other (Please comment) 04/27/2010 Chest tightness, uses Carbocaine instead Rapid heart rate, chest tightness, feeling of doom/panic. Unlikely to be [place] allergy. Nearly always due to intravascular epi injection. Discussed with patient. documented as of this encounter (statuses as of 04/01/2024) Medications Medication Sig Dispensed Refills Start Date [...] (DOSE INCREASE) 44 Capsule 4 03/27/2024 Active Nirmatrelvir&Riton avir 300/100 20 x 150 MG & 10 x 100MG Oral Tablet Therapy Pack (Paxlovid (300/100)) Take 2 pink tablets of Nirmatrelvir and 1 white tablet of Ritonavir two times a day by mouth. 30 Tablet 03/31/2024 Active documented as of this encounter (statuses as of 04/01/2024) Active Problems Problem Noted Date Diagnosed Date [...] as of this encounter (statuses as of 04/01/2024) Resolved Problems Problem Noted Date Diagnosed Date Resolved Date Essential and other specified forms of tremor 11/29/19 13 02/20/2017 Asthma with severity to be determined 12/16/2009 09/17/2014 Overview: Per Asthma Taxonomy ICD-10 update of inactive term Dyslipidemia, goal to be determined 06/03/2009 12/01/2009 Overview: Per Lipid Taxonomy. EXTRINSIC ASTHMA, UNSPEC 05/11/2005 Irritable bowel syndrome documented as of this encounter (statuses as of 04/01/2024) Immunizations Name Administration Dates Next Due COVID-19 [...] encounter Miscellaneous Notes * Telephone Encounter - Alana Zhang LPN - 04/01/2024 3:04 PM EDT Patient aware and verbalized understanding Pt is doing better today. She never took the paxlovid. The pharmacist indicated it would not be appropriate to take due to timeframe of sx starting and due to interactions with her other medication-crestor eliquis and metoprolol. She is very upset about the whole situation and not getting a call back. Pt would like to speak to nursing supervisor fabrication department in the office. She asked to be called back at phone # [phone]. I also inform pt, I would relay request to Brionna Edward * Telephone Encounter - Anushka Ma OSA - 04/01/2024 3:02 PM EDT Pt returning call, transferred to nurse line. * Telephone Encounter - Joyce Good RN - 04/01/2024 2:35 PM EDT Called and left message on voice mail. Asked pt how she was doing and apologized that no one had returned her call * Telephone Encounter - Yuridia Mackey LPN - 03/31/2024 9:25 AM EDT Patient calling, Severely upset that her message was not taken care of in a timely fashion. She stated that she called in last week to get a script for Paxlovid as she had tested positive. She stated that this was the third time that she had called about the medication but now it's too late for her to take it. I gave her the triage number to contact the nurses in the future and she asked about the weekend, advised her to speak directly to a nurse if she would need time sensitive assistance. * Telephone Encounter - Chelsea Eldridge OSA - 03/31/2024 9:18 AM EDT Reason for patient's call: pt calling in asking if she should still take it since its been so many days Caller was transferred to Yuridia at the nurse line. * Telephone Encounter - Sushil Freeman MD - 03/31/2024 8:59 AM EDT Somehow I was not called yesterday Just sent it * Telephone Encounter - Veda Ornelas LPN - 03/30/2024 8:05 AM EDT Pt called back in checking on status of request. Pt would like to have addressed as she is not feeling well. Pt would like contacted [phone] * Telephone Encounter - Krupa Hong OSA - 03/28/2024 3:30 PM EDT Pt just tested positive for Covid today. Pt would like Homero called into the pharm. Please advise. documented in this encounter Plan of Treatment Upcoming Encounters Date Type Department Care Team (Late st Contact Info) Description 04/21/2024 9:00 AM EDT Pharmacy Pharmacy Hematology Oncology [facility] [address] [place] [address] Gm, [facility] Hem/Onc [address] [place] [address] 04/28/2024 10:00 AM EST Office Visit Cardiology, [facility] [address] [place] [address] Bolivar Doshi PA-C [address] [place] [address] 06/02/2024 11:00 AM EST Office Visit Hematology/Oncology [facility] [address] [facility] [place] [phone] Sahra Bryant CRNP [address] [place] [address] 07/01/2024 8:20 AM EST Office Visit Family Practice [facility] [address] [place] [address] Kathryn Dennison DO [address] [place] [address] 07/15/2024 11:15 AM EST Office Visit General Surgery, [facility] [address] [place] [address] Kathy Haskins MD [address] [facility] [place] [address] Health Maintenance Due Date Last Done Comments [...] Directives occurred with: Not Discussed Care Teams Diet Consultant Relationship Specialty Start Date End Date Kathryn Dennison DO [address] [place] [address] PCP - General Family Medicine 09/28/16 documented as of this encounter
--- OUTSIDE RECORDS SUMMARY | 2024-05-10 11:26 | External Medical Summary | Summary of Care ---
Author Name Unknown Organization [facility] Address [address] [place] [address] Phone [phone] Care Team Providers Care Graduate Civil Engineer Name Role Phone aKthryn Dennison DO Primary Care Provider [phone] Reason for Visit * Reason Onset Date Comments Medication Question 03/28/2024 Encounter Details Date Type Department Care Team (Late st Contact Info) Description 03/28/2024 Telephone Family Practice [facility] [address] [place] [address] Kathryn Dennison DO [address] [facility] [place] [id number] Medication Question Allergies Active Allergy Reactions Criticality [...] Pt would like to speak to nursing electrician supervisor in the office. She asked to be called back at phone # [phone]. I also inform pt, I would relay [...] not feeling well. Pt would like contacted [phone] * Telephone Encounter - Krupa Hong OSA - 03/28/2024 3:30 PM EDT Pt just tested positive for Covid today. Pt would like Homero called into the pharm. Please advise. documented in this encounter Plan of Treatment Upcoming Encounters Date Type Department Care Team (Late st Contact Info) Description 04/21/2024 9:00 AM EDT Pharmacy Pharmacy Hematology Oncology [facility] [address] [place] [address] Gm, [facility] Hem/Onc [address] [place] [address] 04/28/2024 10:00 AM EST Office Visit Cardiology, [facility] [address] [place] [address] Bolivar Doshi PA-C [address] [place] [address] 06/02/2024 11:00 AM EST Office Visit Hematology/Oncology [facility] [address] [place] [phone] Sahra Bryant CRNP [address] [place] [address] 07/01/2024 8:20 AM EST Office Visit Family Practice [facility] [address] [place] [address] Kathryn Dennison DO [address] [place] [address] 07/15/2024 11:15 AM EST Office Visit General Surgery, [facility] [address] [place] [address] Kathy Haskins MD [address] [facility] [place] [address] Health Maintenance Due Date Last Done Comments [...] Directives occurred with: Not Discussed Care Teams Graduate Civil Engineer Relationship Specialty Start Date End Date Kathryn Dennison DO [address] [place] [address] PCP - General Family Medicine 09/28/16 documented as of this encounter
--- OUTSIDE RECORDS SUMMARY | 2024-05-10 11:26 | External Medical Summary | Summary of Care ---
Author Name Unknown Organization [facility] Address [address] [place] [address] Phone [phone] Care Team Providers Care Homicide Squad Captain Name Role Phone Kathryn Dennison DO Primary Care Provider [phone] Reason for Visit * Reason Onset Date Comments Medication Question 03/28/2024 Encounter Details Date Type Department Care Team (Late st Contact Info) Description 03/28/2024 Telephone Family Practice [facility] [address] [place] [address] Kathryn Dennison DO [address] [facility] [place] [id number] Medication Question Allergies Active Allergy Reactions Criticality [...] encounter Miscellaneous Notes * Telephone Encounter - Yuridia Mackey LPN [...] so many days Caller was transferred to [facility] at the nurse line. * Telephone Encounter - Sushil Freeman MD - 03/31/2024 8:59 AM EDT Somehow I was not called yesterday Just sent it * Telephone Encounter - Veda Ornelas LPN - 03/30/2024 8:05 AM EDT Pt called back in checking on status of request. Pt would like to have addressed as she is not feeling well. Pt would like contacted [phone] * Telephone Encounter - Krupa Hong OSA - 03/28/2024 3:30 PM EDT Pt just tested positive for Covid today. Pt would like Homero called into the pharm. Please advise. documented in this encounter Plan of Treatment Upcoming Encounters Date Type Department Care Team (Late st Contact Info) Description 04/21/2024 9:00 AM EDT Pharmacy Pharmacy Hematology Oncology [facility] [address] [place] [address] [facility], [facility] Hem/Onc [address] [place] [address] 04/28/2024 10:00 AM EST Office Visit Cardiology, [facility] [address] [place] [address] Bolivar Doshi PA-C [address] [place] [address] 06/02/2024 11:00 AM EST Office Visit Hematology/Oncology [facility] 200 [place] [place] [address] Sahra Bryant CRNP [address] [place] [address] 07/01/2024 8:20 AM EST Office Visit Family Practice [facility] 132 [facility] [place] [address] Kathryn Dennison DO 132 [facility] [place] [address] 07/15/2024 11:15 AM EST Office Visit General Surgery, [facility] 132 [facility] [place] [address] Kathy Haskins MD [address] [facility] [place] [id number] Health Maintenance Due Date Last Done Comments Meningitis B Vaccine (Bexsero/Trumemba) (1 of 4 - Increased Risk) 1950 Zoster Vaccines (1 of 2) 08/26/1959 MENINGOCOCCAL (MENACTRA/MENVEO) (2 - Risk 2-dose series) 07/22/2014 05/27/2014 Adult Wellness Visit 03/25/2022 03/25/2021 Depression Screening 03/25/2022 03/25/2021 COVID-19 Vaccine (4 - 2023- season) 2024 03/29/2023, 08/22/2020, 07/15/2020 Influenza Vaccine [...] Directives occurred with: Not Discussed Care Teams Homicide Squad Captain Relationship Specialty Start Date End Date Kathryn Dennison DO 132 [facility] [place] [address] PCP - General Family Medicine 09/28/16 documented as of this encounter
--- OUTSIDE RECORDS SUMMARY | 2024-05-10 11:26 | External Medical Summary | Summary of Care ---
Author Name Unknown Organization [facility] Address [address] [place] [address] Phone [phone] Care Team Providers Care Dentist Attendant Name Role Phone Kathryn Dennison DO Primary Care Provider [phone] Reason for Visit * Reason Onset Date Comments Medication Question 03/28/2024 Encounter Details Date Type Department Care Team (Late st Contact Info) Description 03/28/2024 Telephone Family Practice [facility] [address] [place] [address] Kathryn Dennison DO [address] [facility] [place] [phone] Medication Question Allergies Active Allergy Reactions Criticality [...] encounter Miscellaneous Notes * Telephone Encounter - Joyce Good RN [...] so many days Caller was transferred to [facility] at the nurse line. * [...] not feeling well. Pt would like contacted [phone] * Telephone Encounter - Krupa Hong OSA - 03/28/2024 3:30 PM EDT Pt just tested positive for Covid today. Pt would like Homero called into the pharm. Please advise. documented in this encounter Plan of Treatment Upcoming Encounters Date Type Department Care Team (Late st Contact Info) Description 04/21/2024 9:00 AM EDT Pharmacy Pharmacy Hematology Oncology [facility] [address] [place] [address] [facility], [facility] Hem/Onc [address] [place] [address] 04/28/2024 10:00 AM EST Office Visit Cardiology, [facility] [address] [place] [address] Bolivar Doshi PA-C [facility] [place] [address] 06/02/2024 11:00 AM EST Office Visit Hematology/Oncology [facility] [address] [place] [phone] Sahra Bryant CRNP 400 [facility] [place] [address] 07/01/2024 8:20 AM EST Office Visit Family Practice [facility] [place] [address] Kathryn Dennison DO [address] [place] [address] 07/15/2024 11:15 AM EST Office Visit General Surgery, [facility] 132 [facility] [place] [address] Kathy Haskins MD [address] [place] [address] Health Maintenance Due Date Last Done Comments [...] Directives occurred with: Not Discussed Care Teams Dentist Attendant Relationship Specialty Start Date End Date Kathryn Dennison DO [address] [place] [address] PCP - General Family Medicine 09/28/16 documented as of this encounter
--- OUTSIDE RECORDS SUMMARY | 2024-05-10 11:26 | External Medical Summary | Summary of Care ---
Author Name Unknown Organization [facility] Address [address] [place] [address] Phone [phone] Care Team Providers Care Forest Pathologist Name Role Phone Kathryn Dennison DO Primary Care Provider [phone] Reason for Visit * Reason Comments Outpatient Testing Encounter Details Date Type Department Care Team (Late st Contact Info) Description 04/22/2024 8:50 AM EDT [facility] [address] [place] [address] [place], [facility] Sc[facility] [address] [place] [address] Polycythemia vera (HCC) Allergies Active Allergy Reactions [...] No 05/25/2014 documented as of this encounter Plan of Treatment Upcoming Encounters Date Type Department Care Team (Late st Contact Info) Description 04/22/2024 2:15 PM EDT Office Visit General Surgery, [facility] [address] [place] [address] Kathy Haskins MD [address] [place] [address] 04/28/2024 10:00 AM EST Office Visit Cardiology, [facility] 132 [facility] [place] [address] Bolivar Doshi, PAMarylin 132 [facility] [place] [address] 06/02/2024 11:00 AM EST Office [facility] [place] [address] [place] [address] Sahra Bryant CRNP 400 [facility] [place] [address] 07/01/2024 8:20 AM EST Office Visit Family Practice [facility] 132 [place] [address] Kathryn Dennison, [address] [place] [address] Health Maintenance Due Date Last Done Comments [...] (ABNORMAL) DIFFERENTIAL, AUTOMATED (04/22/2024 9:03 AM EDT) Pathologist [facility] WBC 5.14 4.00 - 10.80 K/uL 04/22/2024 9:16 AM EDT [facility] 56- Neutrophils % 43.0 40.0 - 75.0 % 04/22/2024 9:16 AM EDT [facility] 56- Lymphocytes % 42.6(H) 18.0 - 42.0 % 04/22/2024 9:16 AM EDT [facility] 56- Monocytes % 13.4(H) 1.0 - 11.0 % 04/22/2024 9:16 AM EDT [facility] 56- Eosinophils % 0.8 0.0 - 6.0 % 04/22/2024 9:16 AM EDT [facility] 56- Basophils % 0.2 0.0 - 2.0 % 04/22/2024 9:16 AM EDT [facility] 56- Absolute Neutrophils 2.21 1.80 - 7.70 K/uL 04/22/2024 9:16 AM EDT [facility] 56- Absolute Lymphocytes 2.19 1.00 - 4.80 K/ul 04/22/2024 9:16 AM EDT [facility] 56- Absolute Monocytes 0.69 0.00 - 1.10 K/uL 04/22/2024 9:16 AM EDT [facility] 56- Absolute Eosinophils 0.04 0.00 - 0.70 K/uL 04/22/2024 9:16 AM EDT [facility] 56- Absolute Basophils 0.01 0.00 - 0.20 K/uL 04/22/2024 9:16 AM EDT [facility] 56- Blood Venous blood specimen / Unknown Venipuncture / Unknown 04/22/2024 9:03 AM EDT 04/22/2024 9:03 AM EDT Sahra WOMACK LAB BLOOD ORDER ROB [facility] [address]- [address] [place] [address] * CBC (04/22/2024 9:03 AM EDT) WBC 5.14 4.00 - 10.80 K/uL 04/22/2024 9:16 AM EDT [facility] 56- RBC 3.41 3.85 - 5.15 M/uL 04/22/2024 9:16 AM EDT [facility] 56 HGB 13.7 12.0 - 15.3 g/dL 04/22/2024 9:16 AM EDT [facility] 56- HCT 40.5 36.0 - 45.2 % 04/22/2024 9:16 AM EDT [facility] 56 MCV 118.8 81.5 - 97.5 fL 04/22/2024 9:16 AM EDT [facility] 56- MCH 40.2 27.0 - 34.0 pg 04/22/2024 9:16 AM EDT [facility] 56 MCHC 33.8 32.0 - 36.0 g/dL 04/22/2024 9:16 AM EDT [facility] 56 RDW 13.8 11.5 - 15.5 % 04/22/2024 9:16 AM EDT [facility] 56 PLT 294 140 - 400 K/uL 04/22/2024 9:16 AM EDT [facility] 56 MPV 9.3 6.6 - 11.1 fL 04/22/2024 9:16 AM EDT [facility] 56 Blood Venous blood specimen / Unknown Venipuncture / Unknown 04/22/2024 9:03 AM EDT 04/22/2024 9:03 AM EDT Sahra WOMACK LAB BLOOD ORDER ROB [facility] 56- [address] [place] [address] documented in this encounter Visit Diagnoses Diagnosis [...] Directives occurred with: Not Discussed Care Teams Forest Pathologist Relationship Specialty Start Date End Date Kathryn Dennison DO [address] [place] [address] PCP - General Family Medicine 09/28/16 documented as of this encounter
--- OUTSIDE RECORDS SUMMARY | 2024-05-10 11:26 | External Medical Summary | Summary of Care ---
Author Name Unknown Organization [facility] Address [address] [place] [address] Phone [phone] Care Team Providers Care Sales Representative Leather Goods Name Role Phone Kathryn Dennison DO Primary Care Provider [phone] Reason for Visit * Reason Onset Date Comments Medication Question 03/28/2024 Encounter Details Date Type Department Care Team (Late st Contact Info) Description 03/28/2024 Telephone Family Practice [facility] [address] [place] [address] Kathryn Dennison DO [address] [place] [place] [address] Medication Question Allergies Active Allergy Reactions Criticality Noted Date Comments Meloxicam Other (Please comment) 12/08/2020 Hyperkalemia Novocain Other (Please comment) 04/27/2010 Chest tightness, uses Carbocaine instead Rapid heart rate, chest tightness, feeling of doom/panic. Unlikely to be [place] allergy. Nearly always due to intravascular epi injection. Discussed with patient. documented as of this encounter (statuses as of 04/10/2024) Medications Medication Sig Dispensed Refills Start Date [...] as of this encounter (statuses as of 04/10/2024) Active Problems Problem Noted Date Diagnosed Date [...] as of this encounter (statuses as of 04/10/2024) Resolved Problems Problem Noted Date Diagnosed Date Resolved Date Essential and other specified forms of tremor 11/29/19 13 02/20/2017 Asthma with severity to be determined 12/16/2009 09/17/2014 Overview: Per Asthma Taxonomy ICD-10 update of inactive term Dyslipidemia, goal to be determined 06/03/2009 12/01/2009 Overview: Per Lipid Taxonomy. EXTRINSIC ASTHMA, UNSPEC 05/11/2005 Irritable bowel syndrome documented as of this encounter (statuses as of 04/10/2024) Immunizations Name Administration Dates Next Due COVID-19 [...] encounter Miscellaneous Notes * Telephone Encounter - Rahel Mcgraw LPN - 04/10/2024 12:52 PM EDT Noted. * Telephone Encounter - Franci Edward LPN - 04/01/2024 6:20 PM EDT Called pt, introduced myself. Extended apologies to the delay of care and call from nursing to review her symptoms sooner, as well as delay in Paxlovid, which then the pt was not able to take due to Eliquis. "Why would I have then be prescribed when my medication list showed Eliquis" Told pt, if was a lapse in awareness, and I'm sure the prescribing doctor had just wanted to give her some relief from her symptoms. Aware that the pharmacist did catch that interaction and she ended up not taking it. Mostly concerned that she did not receive a call from a nurse to go over her symptoms, and wouldhave liked to have s/w a nurse Sunday afternoon or Sunday. Aware that I will be extending furthernursing education to staff so that this does not happen gain. Aware that I will forward informationto those involved in most recent care. Pt thanks me for the call. Issue resolved. Forwarded to Mona Wood, aRhel Mcgraw, and Dr. Freeman, and PCP Apparently call on Sunday never went to Nursing team to triage symptoms, and a report was started in reference to that. See below. * Telephone Encounter - Alana Zhang LPN [...] Pt would like to speak to nursing clerk supervisor in the office. She asked to be called back at phone # [phone]. I also inform pt, I would relay [...] not feeling well. Pt would like contacted [phone] * Telephone Encounter - Krupa Hong OSA - 03/28/2024 3:30 PM EDT Pt just tested positive for Covid today. Pt would like Paxlovid called into the pharm. Please advise. documented in this encounter Plan of Treatment Upcoming Encounters Date Type Department Care Team (Late st Contact Info) Description 04/21/2024 9:00 AM EDT Pharmacy Pharmacy Hematology [facility]cology [facility] [address] [place] [address] [facility] Hem/Onc [address] [place] [address] 04/22/2024 2:15 PM EDT Office Visit General Surgery, [facility] [place] [address] Kathy Haskins MD [address] [place] [address] 04/28/2024 10:00 AM EST Office Visit Cardiology, [facility] [address] [place] [address] Bolivar Doshi PA-C [facility] [place] [address] 06/02/2024 11:00 AM EST Office Visit Hematology/Oncology [facility] 200 [place] [address] Sahra Bryant CRNP 400 [place] [address] 07/01/2024 8:20 AM EST Office Visit Family Practice [facility] 132 [facility] [place] [address] Kathryn Dennison DO [address] [facility] [place] [address] Health Maintenance Due Date Last Done Comments [...] Directives occurred with: Not Discussed Care Teams Sales Representative Leather Goods Relationship Specialty Start Date End Date Kathryn Dennison DO [address] [place] [address] PCP - General Family Medicine 09/28/16 documented as of this encounter
--- OUTSIDE RECORDS SUMMARY | 2024-05-10 11:26 | External Medical Summary | Summary of Care ---
Author Name Unknown Organization [facility] Address [address] [place] [address] Phone [phone] Care Team Providers Care Professor Of Communication Name Role Phone Ktahryn Dennison DO Primary Care Provider [phone] Reason for Visit * Reason Onset Date Comments Medication Question 03/28/2024 Encounter Details Date Type Department Care Team (Late st Contact Info) Description 03/28/2024 Telephone Family Practice [facility] [address] [place] [address] Kathryn Dennison DO [address] [facility] [place] [phone] Medication Question Allergies Active Allergy Reactions Criticality [...] encounter Miscellaneous Notes * Telephone Encounter - Anushka Ma OSA [...] not feeling well. Pt would like contacted [phone] * Telephone Encounter - Krupa Hong OSA - 03/28/2024 3:30 PM EDT Pt just tested positive for Covid today. Pt would like Homero called into the pharm. Please advise. documented in this encounter Plan of Treatment Upcoming Encounters Date Type Department Care Team (Late st Contact Info) Description 04/21/2024 9:00 AM EDT Pharmacy Pharmacy Hematology Oncology [facility] [address] [place] [address] [facility] Hem/Onc [address] [place] [address] 04/28/2024 10:00 AM EST Office Visit Cardiology, [facility] 132 [facility] [place] [address] Bolivar Doshi PA-C [facility] [place] [address] 06/02/2024 11:00 AM EST Office Visit Hematology/Oncology [facility] [address] [place] [address] Sahra Bryant CRNP [address] [place], [place] [address] 07/01/2024 8:20 AM EST Office Visit Family Practice [facility] 132 [facility] [place] [address] Kathryn Dennison DO 132 [facility] [place] [address] 07/15/2024 11:15 AM EST Office Visit General Surgery, [facility] 132 [facility] [place] [address] Kathy Haskins MD [address] [place], [place] [phone] Health Maintenance Due Date Last Done Comments [...] Directives occurred with: Not Discussed Care Teams Professor Of Communication Relationship Specialty Start Date End Date Kathryn Dennison DO 132 [facility] [place] [address] PCP - General Family Medicine 09/28/16 documented as of this encounter
--- OUTSIDE RECORDS SUMMARY | 2024-05-10 11:26 | External Medical Summary ---
Author Name Unknown Address Unknown Organization K[facility] [place] [address] Laboratory Report Ordering Provider Test Date Status JONATHON HERNÁNDEZ 04/22/2024 09:03:30 Final Observation Date Value Abnormality Reference (Units ) Status WBC, Total 04/22/2024 09:03:30 5.14 4.00-10.8 0 (K/uL) Final RBC 04/22/2024 09:03:30 3.41 3.85-5.15 (M/uL) Final Hemoglobin 04/22/2024 09:03:30 13.7 12.0-15.3 (g/dL) Final HCT 04/22/2024 09:03:30 40.5 36.0-45.2 (%) Final MCV 04/22/2024 09:03:30 118.8 81.5-97.5 (fL) Final MCH 04/22/2024 09:03:30 40.2 27.0-34.0 (pg) Final MCHC 04/22/2024 09:03:30 33.8 32.0-36.0 (g/dL) Final RDW 04/22/2024 09:03:30 13.8 11.5-15.5 (%) Final Platelets 04/22/2024 09:03:30 294 140-400 (K /uL) Final MPV 04/22/2024 09:03:30 9.3 6.6-11.1 ( fL) Final Performing Location [facility] [place] [address]
--- OUTSIDE RECORDS SUMMARY | 2024-05-10 11:26 | External Medical Summary | Summary of Care ---
Author Name Unknown Organization [facility] Address [address] [place] [address] Phone [phone] Care Team Providers Care Behavioral Therapist Name Role Phone Kathryn Dennison DO Primary Care Provider [phone] Reason for Visit * Reason Onset Date Comments Medication Question 03/28/2024 Encounter Details Date Type Department Care Team (Late st Contact Info) Description 03/28/2024 Telephone Family Practice [facility] [address] [place] [address] Kathryn Dennison DO [address] [facility] [place] [id number] Medication Question Allergies Active Allergy Reactions Criticality [...] would like to speak to nursing supervisor poultry hatchery in the office. She asked to be called back at phone # [phone]. I also inform pt, I would be writing incident report about initial encounter not being handle per protocol. * Telephone Encounter - Anushka Ma OSA [...] not feeling well. Pt would like contacted [phone] * Telephone Encounter - Krupa Hong OSA - 03/28/2024 3:30 PM EDT Pt just tested positive for Covid today. Pt would like Paxlovid called into the pharm. Please advise. documented in this encounter Plan of Treatment Upcoming Encounters Date Type Department Care Team (Late st Contact Info) Description 04/21/2024 9:00 AM EDT Pharmacy Pharmacy Hematology Oncology [facility] [address] [place] [address] [facility], [facility] Hem/Onc [address] [place] [address] 04/28/2024 10:00 AM EST Office Visit Cardiology, [facility] [address] [place] [address] Bolivar Doshi PA-C [address] [place] [address] 06/02/2024 11:00 AM EST Office Visit Hematology[facility]Oncology [facility] [phone] Sahra Bryant CRNP [address] [place] [address] 07/01/2024 8:20 AM EST Office Visit Family Practice [facility] [address] [place] [address] Kathryn Dennison DO [address] [place] [address] 07/15/2024 11:15 AM EST Office Visit General Surgery, [facility] [address] [place] [address] Kathy Haskins MD [address] [facility] [place] [address] Health Maintenance Due Date Last Done Comments [...] Directives occurred with: Not Discussed Care Teams Behavioral Therapist Relationship Specialty Start Date End Date Kathryn Dennison DO [address] [place] [address] PCP - General Family Medicine 09/28/16 documented as of this encounter
--- OUTSIDE RECORDS SUMMARY | 2024-05-10 11:26 | External Medical Summary | Summary of Care ---
Author Name Unknown Organization [facility] Address [address] [place] [address] Phone [phone] Care Team Providers Care Auto Tire Recapper Name Role Phone Kathryn Dennison DO Primary Care Provider [phone] Reason for Visit * Reason Onset Date Comments Medication Question 03/28/2024 Encounter Details Date Type Department Care Team (Late st Contact Info) Description 03/28/2024 Telephone Family Practice [facility] [address] [place] [address] Kathryn Dennison DO [address] [facility] [place] [address] Medication Question Allergies Active Allergy Reactions Criticality Noted Date Comments Meloxicam Other (Please comment) 12/08/2020 Hyperkalemia Novocain Other (Please comment) 04/27/2010 Chest tightness, uses Carbocaine instead Rapid heart rate, chest tightness, feeling of doom/panic. Unlikely to be [place] allergy. Nearly always due to intravascular epi injection. Discussed with patient. documented as of this encounter (statuses as of 03/31/2024) Medications Medication Sig Dispensed Refills Start Date [...] as of this encounter (statuses as of 03/31/2024) Active Problems Problem Noted Date Diagnosed Date [...] as of this encounter (statuses as of 03/31/2024) Resolved Problems Problem Noted Date Diagnosed Date Resolved Date Essential and other specified forms of tremor 11/29/19 13 02/20/2017 Asthma with severity to be determined 12/16/2009 09/17/2014 Overview: Per Asthma Taxonomy ICD-10 update of inactive term Dyslipidemia, goal to be determined 06/03/2009 12/01/2009 Overview: Per Lipid Taxonomy. EXTRINSIC ASTHMA, UNSPEC 05/11/2005 Irritable bowel syndrome documented as of this encounter (statuses as of 03/31/2024) Immunizations Name Administration Dates Next Due COVID-19 [...] encounter Miscellaneous Notes * Telephone Encounter - Sushil Freeman MD - 03/31/2024 8:59 AM EDT Somehow I was not called yesterday Just sent it * Telephone Encounter - Veda Ornelas LPN - 03/30/2024 8:05 AM EDT Pt called back in checking on status of request. Pt would like to have addressed as she is not feeling well. Pt would like contacted [phone] * Telephone Encounter - Krupa Hong OSA - 03/28/2024 3:30 PM EDT Pt just tested positive for Covid today. Pt would like Homero called into the pharm. Please advise. documented in this encounter Plan of Treatment Upcoming Encounters Date Type Department Care Team (Late st Contact Info) Description 04/21/2024 9:00 AM EDT Pharmacy Pharmacy Hematology Oncology [facility] [address] [place] [address] [facility], [facility] Hem/Onc [address] [place] [address] 04/28/2024 10:00 AM EST Office Visit Cardiology, [facility] [place] [place] [address] Bolivar Doshi PA-C [address] [place] [address] 06/02/2024 11:00 AM EST Office Visit Hematology/Oncology [facility] [address] [place] [phone] Sahra Bryant CRNP [address] [place] [address] 07/01/2024 8:20 AM EST Office Visit Family Practice [facility] [address] [place] [address] Kathryn Dennison DO 132 [facility] [place] [address] 07/15/2024 11:15 AM EST Office Visit General Surgery, [facility] 132 [place] [address] Kathy Haskins MD [address] [facility] [place] [address] Health Maintenance Due Date Last Done Comments [...] Directives occurred with: Not Discussed Care Teams Auto Tire Recapper Relationship Specialty Start Date End Date Kathryn Dennison DO [address] [place] [address] PCP - General Family Medicine 09/28/16 documented as of this encounter
--- OUTSIDE RECORDS SUMMARY | 2024-05-10 11:26 | External Medical Summary | Summary of Care ---
Author Name Unknown Organization [facility] Address [address] [place] [address] Phone [phone] Care Team Providers Care Solution Analyst Name Role Phone Kathryn Dennison DO Primary Care Provider [phone] Reason for Visit * Reason Onset Date Comments Medication Question 03/28/2024 Encounter Details Date Type Department Care Team (Late st Contact Info) Description 03/28/2024 Telephone Family Practice [facility] [address] [place] [address] Kathryn Dennison DO [address] [place] [facility] [place] [address] Medication Question Allergies Active Allergy Reactions [...] so many days Caller was transferred to [facility] at the nurse line. * Telephone Encounter - Sushil Freeman MD - 03/31/2024 8:59 AM EDT Somehow I was not called yesterday Just sent it * Telephone Encounter - Veda Ornelas LPN - 03/30/2024 8:05 AM EDT Pt called back in checking on status of request. Pt would like to have addressed as she is not feeling well. Pt would like contacted [phone] * Telephone Encounter - Krupa Hong OSA - 03/28/2024 3:30 PM EDT Pt just tested positive for Covid today. Pt would like Homero called into the pharm. Please advise. documented in this encounter Plan of Treatment Upcoming Encounters Date Type Department Care Team (Late st Contact Info) Description 04/21/2024 9:00 AM EDT Pharmacy Pharmacy Hematology Oncology [facility] [address] [place] [address] [facility] [place], [facility] Hem/Onc [address] [place] [address] 04/28/2024 10:00 AM EST Office Visit Cardiology, [facility] [address] [place] [address] Bolivar Doshi PA-C [address] [place] [address] 06/02/2024 11:00 AM EST Office Visit Hematology/Oncology [facility] 200 [facility] [place] [address] Sahra Bryant CRNP [address] [place] [address] 07/01/2024 8:20 AM EST Office Visit Family Practice [facility] 132 [facility] [place] [address] Kathryn Dennison DO 132 [facility] [place] [address] 07/15/2024 11:15 AM EST Office Visit General Surgery, [facility] 132 [facility] [place] [address] Kathy Haskins MD [address] [facility] [place] [phone] Health Maintenance Due Date Last Done Comments [...] Directives occurred with: Not Discussed Care Teams Solution Analyst Relationship Specialty Start Date End Date Kathryn Dennison DO 132 [facility] [place] [address] PCP - General Family Medicine 09/28/16 documented as of this encounter
--- OUTSIDE RECORDS SUMMARY | 2024-05-10 11:26 | External Medical Summary | Summary of Care ---
Author Name Unknown Organization [facility] Address [address] [place] [address] Phone [phone] Care Team Providers Care Rehabilitation Supervisor Name Role Phone Kathryn Dennison DO Primary Care Provider [phone] Reason for Visit * Reason Onset Date Comments Medication Question 03/28/2024 Encounter Details Date Type Department Care Team (Late st Contact Info) Description 03/28/2024 Telephone Family Practice [facility] [address] [place] [address] Kathryn Dennison DO [address] [facility] [place] [phone] Medication Question Allergies Active Allergy Reactions Criticality [...] encounter Miscellaneous Notes * Telephone Encounter - Franci Edward LPN [...] call. Issue resolved. Forwarded to Mona Wood, Rahel Mcgraw, and Dr. Freeman, and PCP Apparently [...] Pt would like to speak to nursing highway maintenance supervisor in the office. She asked to be called back at phone # [phone]. I also inform pt, I would relay [...] not feeling well. Pt would like contacted [phone] * Telephone Encounter - Krupa Hong OSA - 03/28/2024 3:30 PM EDT Pt just tested positive for Covid today. Pt would like Homero called into the pharm. Please advise. documented in this encounter Plan of Treatment Upcoming Encounters Date Type Department Care Team (Late st Contact Info) Description 04/21/2024 9:00 AM EDT Pharmacy Pharmacy Hematology Oncology [facility] [address] [place] [address] [facility] Hem/Onc [address] [place] [address] 04/28/2024 10:00 AM EST Office Visit Cardiology, [facility] 132 [facility] [place] [address] Bolivar Doshi PA-C [address] [place] [address] 06/02/2024 11:00 AM EST Office Visit Hematology/Oncology [facility] [address] [place] [phone] Sahra Bryant CRNP [address] [place], [place] [phone] 07/01/2024 8:20 AM EST Office Visit Family Practice [facility] 132 [facility] [place] [address] Kathryn Dennison DO 132 [facility] [place] [address] 07/15/2024 11:15 AM EST Office Visit General Surgery, [facility] 132 [facility] [place] [address] Kathy Haskins MD [address] [place], [place] [phone] Health Maintenance Due Date Last Done Comments [...] Directives occurred with: Not Discussed Care Teams Rehabilitation Supervisor Relationship Specialty Start Date End Date Kathryn Dennison DO 132 [facility] [place] [address] PCP - General Family Medicine 09/28/16 documented as of this encounter
--- OUTSIDE RECORDS SUMMARY | 2024-05-10 11:26 | External Medical Summary | Summary of Care ---
Author Name Unknown Organization [facility] Address [address] [place] [address] Phone [phone] Care Team Providers Care Manager Client Service Name Role Phone Kathryn Dennison DO Primary Care Provider [phone] Reason for Visit * Reason Onset Date Comments Medication Question 03/28/2024 Encounter Details Date Type Department Care Team (Late st Contact Info) Description 03/28/2024 Telephone Family Practice [facility] [address] [place] [address] Kathryn Dennison DO [address] [place] [address] Medication Question Allergies Active Allergy Reactions [...] Miscellaneous Notes * Telephone Encounter - Chelsea Eldridge OSA - 03/31/2024 9:18 AM EDT Reason for patient's call: pt calling in asking if she should still take it since its been so many days Caller was transferred to [facility] at the nurse line. * Telephone Encounter - Sushil Freeman MD - 03/31/2024 8:59 AM EDT Somehow I was not called yesterday Just sent it * Telephone Encounter - Veda Ornelas LPN - 03/30/2024 8:05 AM EDT Pt called back in checking on status of request. Pt would like to have addressed as she is not feeling well. Pt would like contacted [phone] * Telephone Encounter - Krupa Hong OSA - 03/28/2024 3:30 PM EDT Pt just tested positive for Covid today. Pt would like Paxlovid called into the pharm. Please advise. documented in this encounter Plan of Treatment Upcoming Encounters Date Type Department Care Team (Late st Contact Info) Description 04/21/2024 9:00 AM EDT Pharmacy Pharmacy Hematology Oncology [facility] [address] [place] [address] [facility], [facility] Hem/Onc [address] [place] [address] 04/28/2024 10:00 AM EST Office Visit Cardiology, [facility] [address] [place] [address] Bolivar Doshi PA-C [address] [place] [address] 06/02/2024 11:00 AM EST Office Visit [facility]ematology[facility] [phone] Sahra Bryant CRNP [address] [place] [address] 07/01/2024 8:20 AM EST Office Visit Family Practice [facility] [address] [place] [address] Kathryn Dennison DO [address] [place] [address] 07/15/2024 11:15 AM EST Office Visit General Surgery, [facility] [address] [place] [address] Kathy Haskins MD [address] [place] [address] Health Maintenance Due Date Last Done Comments [...] Directives occurred with: Not Discussed Care Teams Manager Client Service Relationship Specialty Start Date End Date Kathryn Dennison DO 132 [facility] [place] [address] PCP - General Family Medicine 09/28/16 documented as of this encounter
--- OUTSIDE RECORDS SUMMARY | 2024-05-10 11:26 | External Medical Summary | Summary of Care ---
Author Name Unknown Organization [facility] Address [address] [place] [address] Phone [phone] Care Team Providers Care Car Inspection And Repair Manager Name Role Phone Kathryn Dennison DO Primary Care Provider [phone] Encounter Details Date Type Department Care Team (Late st Contact Info) Description 04/18/2024 Orders Only Hematology/Oncology [facility] [address] [facility] [place] [address] Sahra Bryant CRNP 400 [place] [address] Polycythemia vera (HCC)* Allergies Active Allergy Reactions Criticality Noted Date Comments Meloxicam Other (Please comment) 12/08/2020 Hyperkalemia Novocain Other (Please comment) 04/27/2010 Chest tightness, uses Carbocaine instead Rapid heart rate, chest tightness, feeling of doom/panic. Unlikely to be [place] allergy. Nearly always due to intravascular epi injection. Discussed with patient. documented as of this encounter (statuses as of 04/18/2024) Medications Medication Sig Dispensed Refills Start Date [...] as of this encounter (statuses as of 04/18/2024) Active Problems Problem Noted Date Diagnosed Date [...] as of this encounter (statuses as of 04/18/2024) Resolved Problems Problem Noted Date Diagnosed Date Resolved Date Essential and other specified forms of tremor 11/29/19 13 02/20/2017 Asthma with severity to be determined 12/16/2009 09/17/2014 Overview: Per Asthma Taxonomy ICD-10 update of inactive term Dyslipidemia, goal to be determined 06/03/2009 12/01/2009 Overview: Per Lipid Taxonomy. EXTRINSIC ASTHMA, UNSPEC 05/11/2005 Irritable bowel syndrome documented as of this encounter (statuses as of 04/18/2024) Immunizations Name Administration Dates Next Due COVID-19 [...] Pharmacy Hematology Oncology [facility] [address] [place] [address] [facility], [facility] Hem/Onc [address] [place] [address] 04/22/2024 2:15 PM EDT Office Visit General Surgery, [facility] 132 [facility] [place] [address] Kathy Haskins MD [address] [place] [address] 04/28/2024 10:00 AM EST Office Visit Cardiology, [facility] [address] [place] [address] Bolivar Doshi PA-C [address] [place] [address] 06/02/2024 11:00 AM EST Office Visit Hematology/Oncology [facility] 200 [facility] [place] [address] Sahra Bryant CRNP [address] [place] [address] 07/01/2024 8:20 AM EST Office Visit Family [facility] [address] [place] [address] Kathryn Dennison DO [address] [place] [address] Scheduled Orders Name Type Priority Associated Diagnoses Orde r Schedule CBC WITH WBC DIFFERENTIAL Lab STAT Polycythemia vera (HCC) Every Month for 12 Occurrences starting 04/18/2024 until 04/18/2025 Health Maintenance Due Date Last Done Comments [...] as of this encounter Visit Diagnoses Diagnosis Polycythemia vera (HCC)- Primary documented in this encounter Advance Directives * Full Code (Latest Code Status on File) Date Activated Date Inactivated Comments 05/25/2014 2:38 PM 05/27/2014 6:15 PM Question Answer Comments Discussion of Advance Directives occurred with: Not Discussed * Full Code Date Activated Date Inactivated Comments 05/25/2014 8:54 AM 05/25/2014 2:38 PM Question Answer Comments Discussion of Advance Directives occurred with: Not Discussed Care Teams Car Inspection And Repair Manager Relationship Specialty Start Date End Date Kathryn Dennison DO [address] [place] [address] PCP - General Family Medicine 09/28/16 documented as of this encounter
--- OUTSIDE RECORDS SUMMARY | 2024-05-10 11:26 | External Medical Summary ---
Author Name Unknown Address Unknown Organization K[facility] [place] [address] Laboratory Report Ordering Provider Test Date Status JONATHON HERNÁNDEZ 04/22/2024 09:03:30 Final Observation Date Value Abnormality Reference (Units ) Status SYNC LEUKOCYTES IN BLOOD BY AUTOMATED COUNT 04/22/2024 09:03:30 5.14 4.00-10.80 (K/uL) Final Segs 04/22/2024 09:03:30 43.0 40.0-75.0 (%) Final Lymphs % 04/22/2024 09:03:30 42.6 Above high normal 18.0-42.0 (%) Final Monos 04/22/2024 09:03:30 13.4 Above high normal 1.0-11.0 (%) Final Eosinophils 04/22/2024 09:03:30 0.8 0.0-6.0 (%) Final Basos 04/22/2024 09:03:30 0.2 0.0-2.0 (%) Final Absolute Segs 04/22/2024 09:03:30 2.21 1.80-7.70 (K/uL) Final Lymphs, absolute 04/22/2024 09:03:30 2.19 1.00-4.80 (K/ul) Final Monos, Abs 04/22/2024 09:03:30 0.69 0.00-1.10 (K/uL) Final Eos, Abs 04/22/2024 09:03:30 0.04 0.00-0.70 (K/uL) Final Basos, Abs 04/22/2024 09:03:30 0.01 0.00-0.20 (K/uL) Final Performing Location [facility] [place] [address]
--- OUTSIDE RECORDS SUMMARY | 2024-05-10 11:27 | External Medical Summary | Summary of Care ---
Author Name Unknown Organization [facility] Address [address] [place] [address] Phone [phone] Care Team Providers Care Casino Change Attendant Name Role Phone Kathryn Dennison DO Primary Care Provider [phone] Reason for Visit * Reason Comments Outpatient Testing Encounter Details Date Type Department Care Team (Late st Contact Info) Description 03/21/2024 9:00 AM EDT [facility] [place] [facility] [address] [place] [address] [place] [address] [place] [address] Polycythemia vera (HCC) Allergies Active Allergy Reactions Criticality Noted Date Comments Meloxicam Other (Please comment) 12/08/2020 Hyperkalemia Novocain Other (Please comment) 04/27/2010 Chest tightness, uses Carbocaine instead Rapid heart rate, chest tightness, feeling of doom/panic. Unlikely to be [place] allergy. Nearly always due to intravascular epi injection. Discussed with patient. documented as of this encounter (statuses as of 03/21/2024) Medications Medication Sig Dispensed Refills Start Date End Date Status PROBIOTIC PO CAPS Take 1 Cap by mouth. Takes every 3 days Active Coenzyme Q10 (COQ10) 100 MG CAPS Take 1 Tab by mouth daily. Active Rosuvastatin Calcium 20 MG Oral Tablet (Crestor)Indication s:Dyslipidemia, goal LDL below 100 TAKE 1 TABLET DAILY 90 Tablet 3 11/05/2023 Active Hydroxyurea 500 MG Oral Capsule (Hydrea)Indications :Polycythemia vera (HCC) Take two 500mg caps (1000mg total) by mouth on Mondays, Wednesdays, and Fridays and one 500mg cap by mouth on Sundays, Tuesdays, , and Saturdays 44 Capsule 3 11/08/2023 Active hydroCHLOROthiazide 25 MG Oral Tablet (Hydrodiuril) Take 1 Tablet by mouth in the morning. 90 Tablet 3 12/13/2023 Active Eliquis 5 MG Oral Tablet (Apixaban) TAKE 1 TABLET TWICE A DAY 180 Tablet 3 12/14/2023 Active Metoprolol Succinate ER 50 MG Oral Tablet Extended Release 24 Hour (toPROL XL) TAKE 1 TABLET IN THE MORNING 90 Tablet 3 03/03/2024 Active documented as of this encounter (statuses as of 03/21/2024) Active Problems Problem Noted Date Diagnosed Date [...] as of this encounter (statuses as of 03/21/2024) Resolved Problems Problem Noted Date Diagnosed Date Resolved Date Essential and other specified forms of tremor 11/29/19 13 02/20/2017 Asthma with severity to be determined 12/16/2009 09/17/2014 Overview: Per Asthma Taxonomy ICD-10 update of inactive term Dyslipidemia, goal to be determined 06/03/2009 12/01/2009 Overview: Per Lipid Taxonomy. EXTRINSIC ASTHMA, UNSPEC 05/11/2005 Irritable bowel syndrome documented as of this encounter (statuses as of 03/21/2024) Immunizations Name Administration Dates Next Due COVID-19 [...] Adjuvanted, 65+ Yrs, IM (FLUAD) 02/27/2020 Seasonal Influenza, PF, 6 M & above, IM , (FluLaval or Fluzone) 03/18/2018 Seasonal Influenza, Quadriva lent Hd (Fluzone Hd) 03/28/2023,03/25/2021 Seasonal Influenza, Quadriva lent, No Preserve, IM 04/08/2017 Seasonal Influenza, Trivalen t, (IIV3), with Preserv, (Fluzone) 03/02/2015,04/25/2014,05/04/2013,04/16,04/04/2011,04/05/2010,04/21/2008 ,04/17/2007,04/18/2006 Seasonal Influenza, Trivalen t, Adjuvanted, 65+ YRS, [...] Care Team (Late st Contact Info) Description 03/24/2024 9:00 AM EDT Pharmacy Pharmacy Hematology Oncology [facility] [address] [place] [address] [facility] Hem[facility]Onc [address] [place] [address] 04/28/2024 10:00 AM EST Office Visit Cardiology, [facility] [address] [place] [address] Bolivar Doshi PA-C [address] [place] [address] 06/02/2024 11:00 AM EST Office Visit Hematology/Oncology [facility] 200 [facility] [place] [phone] Sahra Bryant CRNP 400 [facility] [place] [address] 07/01/2024 8:20 AM EST Office Visit Family Practice [facility] [address] [place] [address] Kathryn Dennison DO [address] [place] [address] 07/15/2024 11:15 AM EST Office Visit General Surgery, [facility] [address] [place] [address] Kathy Haskins MD [address] [facility] [place] [phone] Health Maintenance Due Date Last Done Comments [...] Date/Time Associated Diagnosis Comments DIFFERENTIAL, AUTOMATED STAT 03/21/2024 9:07 AM EDT Polycythemia vera (HCC) CBC STAT 03/21/2024 9:07 AM EDT Polycythemia vera (HCC) CBC STAT 03/21/2024 9:07 AM EDT Polycythemia vera (HCC) documented in this encounter Results * (ABNORMAL) DIFFERENTIAL, AUTOMATED (03/21/2024 9:07 AM EDT) WBC 5.24 4.00 - 10.80 K/uL 03/21/2024 9:15 AM EDT [facility] 56-02 Neutrophils % 41.5 40.0 - 75.0 % 03/21/2024 9:15 AM EDT [facility] 56- Lymphocytes % 43.9(H) 18.0 - 42.0 % 03/21/2024 9:15 AM EDT [facility] 56- Monocytes % 13.4(H) 1.0 - 11.0 % 03/21/2024 9:15 AM EDT [facility] 56- Eosinophils % 1.0 0.0 - 6.0 % 03/21/2024 9:15 AM EDT [facility] 56 Basophils % 0.2 0.0 - 2.0 % 03/21/2024 9:15 AM EDT [facility] 56- Absolute Neutrophils 2.18 1.80 - 7.70 K/uL 03/21/2024 9:15 AM EDT [facility] 56-02 Absolute Lymphocytes 2.30 1.00 - 4.80 K/ul 03/21/2024 9:15 AM EDT [facility] 56-02 Absolute Monocytes 0.70 0.00 - 1.10 K/uL 03/21/2024 9:15 AM EDT [facility] 56-02 Absolute Eosinophils 0.05 0.00 - 0.70 K/uL 03/21/2024 9:15 AM EDT [facility] 56-02 Absolute Basophils 0.01 0.00 - 0.20 K/uL 03/21/2024 9:15 AM EDT [facility] 56-02 Blood Venous blood specimen / Unknown Venipuncture / Unknown 03/21/2024 9:07 AM EDT 03/21/2024 9:07 AM EDT Sahra WOMACK LAB BLOOD ORDER ROB [facility] [address] [place] [address] * CBC (03/21/2024 9:07 AM EDT) WBC 5.24 4.00 - 10.80 K/uL 03/21/2024 9:15 AM EDT [facility] 56 RBC 3.52 3.85 - 5.15 M/uL 03/21/2024 9:15 AM EDT [facility] 56 HGB 14.1 12.0 - 15.3 g/dL 03/21/2024 9:15 AM EDT [facility] 56 HCT 40.8 36.0 - 45.2 % 03/21/2024 9:15 AM EDT [facility] 56 MCV 115.9 81.5 - 97.5 fL 03/21/2024 9:15 AM EDT [address] MCH 40.1 27.0 - 34.0 pg 03/21/2024 9:15 AM EDT [facility] 56 MCHC 34.6 32.0 - 36.0 g/dL 03/21/2024 9:15 AM EDT [facility] 56 RDW 13.5 11.5 - 15.5 % 03/21/2024 9:15 AM EDT [facility] 56 PLT 303 140 - 400 K/uL 03/21/2024 9:15 AM EDT [facility] 56 MPV 9.3 6.6 - 11.1 fL 03/21/2024 9:15 AM EDT [facility] 5602 Blood Venous blood specimen / Unknown Venipuncture / Unknown 03/21/2024 9:07 AM EDT 03/21/2024 9:07 AM EDT Sahra WOMACK LAB BLOOD ORDER ROB [place] [address] [place] [address] documented in this encounter Visit Diagnoses Diagnosis [...] Directives occurred with: Not Discussed Care Teams Casino Change Attendant Relationship Specialty Start Date End Date Kathryn Dennison DO [address] [place] [address] PCP - General Family Medicine 09/28/16 documented as of this encounter
--- OUTSIDE RECORDS SUMMARY | 2024-05-10 11:27 | External Medical Summary | Summary of Care ---
Author Name Unknown Organization [facility] Address [address] [place] [address] Phone [phone] Care Team Providers Care Flange Machine Operator Name Role Phone Kathryn Dennison DO Primary Care Provider [phone] Reason for Visit * Reason Comments eRx-Medication Refill Encounter Details Date Type Department Care Team (Late st Contact Info) Description 03/03/2024 Refill Cardiology, [facility] [address] [facility] [place] [address] Felipe [place] PA-C [address] [facility] [address] Allergies Active Allergy Reactions Criticality Noted Date Comments Meloxicam Other (Please comment) 12/08/2020 Hyperkalemia Novocain Other (Please comment) 04/27/2010 Chest tightness, uses Carbocaine instead Rapid heart rate, chest tightness, feeling of doom/panic. Unlikely to be [place] allergy. Nearly always due to intravascular epi injection. Discussed with patient. documented as of this encounter (statuses as of 03/03/2024) Medications Medication Sig Dispensed Refills Start Date End Date Status PROBIOTIC PO CAPS Take 1 Cap by mouth. Takes every 3 days Active Coenzyme Q10 (COQ10) 100 MG CAPS Take 1 Tab by mouth daily. Active Rosuvastatin Calcium 20 MG Oral Tablet (Crestor)Indicat ions:Dyslipidemi a, goal LDL below 100 TAKE 1 TABLET DAILY 90 Tablet 3 11/05/2023 Active Hydroxyurea 500 MG Oral Capsule (Hydrea)Indicati ons:Polycythemia vera (HCC) Take two 500mg caps (1000mg total) by mouth on Mondays, Wednesdays, and Fridays and one 500mg cap by mouth on Sundays, Tuesdays, , and Saturdays 44 Capsule 3 11/08/2023 Active hydroCHLOROthiaz chantel 25 MG Oral Tablet (Hydrodiuril) Take 1 Tablet by mouth in the morning. 90 Tablet 3 12/13/2023 Active Eliquis 5 MG Oral Tablet (Apixaban) TAKE 1 TABLET TWICE A DAY 180 Tablet 3 12/14/2023 Active Metoprolol Succinate ER 50 MG Oral Tablet Extended Release 24 Hour (toPROL XL) TAKE 1 TABLET IN THE MORNING 90 Tablet 3 03/03/2024 Active Metoprolol Succinate ER 50 MG Oral Tablet Extended Release 24 Hour (toPROL XL) TAKE 1 TABLET IN THE MORNING 90 Tablet 3 02/09/2023 Discontinued documented as of this encounter (statuses as of 03/03/2024) Active Problems Problem Noted Date Diagnosed Date [...] as of this encounter (statuses as of 03/03/2024) Resolved Problems Problem Noted Date Diagnosed Date Resolved Date Essential and other specified forms of tremor 11/29/19 13 02/20/2017 Asthma with severity to be determined 12/16/2009 09/17/2014 Overview: Per Asthma Taxonomy ICD-10 update of inactive term Dyslipidemia, goal to be determined 06/03/2009 12/01/2009 Overview: Per Lipid Taxonomy. EXTRINSIC ASTHMA, UNSPEC 05/11/2005 Irritable bowel syndrome documented as of this encounter (statuses as of 03/03/2024) Immunizations Name Administration Dates Next Due COVID-19 [...] encounter Miscellaneous Notes * Telephone Encounter - Felipe [place] PA-C - 03/03/2024 4:53 PM EDTSigned Prescriptions: Disp Refills Metoprolol Succinate ER 50 MG Oral Tablet *90 Tab*3 Sig: TAKE 1 TABLET IN THE MORNING Authorizing Provider: FELIPE AUSTIN * Telephone Encounter - Svitlana Berumen CMA - 03/03/2024 4:53 PM EDTPending Prescriptions: Disp Refills Metoprolol Succinate ER 50 MG Oral Tablet *90 Tab*3 Sig: TAKE 1 TABLET IN THE MORNING * Telephone Encounter - Svitlana Berumen CMA - 03/03/2024 4:52 PM EDT Did you pend patient's preferred pharmacy and medication before forwarding?yes Pharmacy: [facility]- [place] Pending Prescriptions: Disp Refills Metoprolol Succinate ER 50 MG Oral Tablet*90 Tab*3 Sig: TAKE 1 TABLET IN THE MORNING Last Visit: 10/24/2023 (in office), 10/09/2019 (telemedicine) Next Visit: 04/28/2024 If no future appointments scheduled, and last appointment is greater than a year ago, please schedule patient for a follow-up appointment Last date the medication was ordered: 02/09/2023 Is this request for a controlled substance?No Urine Drug Screen:No results found for this or any previous visit. Patient Phone Numbers Labs: Lab Results Component Value Date/Time CREAT 0.9 11/01/2023 07:41 AM CREAT 0.8 05/26/2020 03:46 PM POTASSIUM 5.1 11/01/2023 07:41 AM POTASSIUM 4.9 05/26/2020 03:46 PM TSH 1.65 11/01/2023 07:41 AM TSH 1.20 09/28/2017 02:12 PM LDL 68 11/01/2023 07:41 AM LDL 59 03/02/2020 07:15 AM LDL NOT APPLICABLE 03/02/2020 07:15 AM ALT 12 11/01/2023 07:41 AM ALT 18 05/17/2020 12:19 PM HGBA1C 5.6 07/27/2017 07:04 AM documented in this encounter Plan of Treatment Upcoming Encounters Date Type Department Care Team (Late st Contact Info) Description 03/24/2024 9:00 AM EDT Pharmacy Pharmacy Hematology Oncology [facility] [address] [place] [address] [facility], [facility] Hem[facility]Onc [address] [place] [address] 04/28/2024 10:00 AM EST Office Visit Cardiology, [facility] [address] [facility] [place] [address] Felipe [place] PA-C [address] [place] [address] 06/02/2024 11:00 AM EST Office Visit Hematology/Oncology [facility] [place] [address] [facility] [address] [place] [phone] Sahra Bryant CRNP [address] [facility] [place] [address] 07/01/2024 8:20 AM EST Office Visit Family Practice [facility] [address] [place] [address] Kathryn Dennison DO [address] [facility] [place] [address] Health Maintenance Due Date Last Done Comments Meningitis B Vaccine (Bexsero/Trumemba) (1 of 4 - Increased Risk) 1950 Zoster Vaccines (1 of 2) 08/26/1959 MENINGOCOCCAL (MENACTRA/MENVEO) (2 - Risk 2-dose series) 07/22/2014 05/27/2014 Adult Wellness Visit 03/25/2022 03/25/2021 Depression Screening 03/25/2022 03/25/2021 COVID-19 Vaccine (3 - Moderna risk series) 04/26/2023 03/29/2023, 08/22/2020, 07/15/2020 Influenza Vaccine (FLU shot) [...] Directives occurred with: Not Discussed Care Teams Flange Machine Operator Relationship Specialty Start Date End Date Kathryn Dennison DO [address] [facility] [place] [address] PCP - General Family Medicine 09/28/16 documented as of this encounter
--- OUTSIDE RECORDS SUMMARY | 2024-05-10 11:27 | External Medical Summary | Summary of Care ---
Author Name Unknown Organization [facility] Address [address] [place] [address] Phone [phone] Care Team Providers Care Quality Assurance Assessor Name Role Phone aKthryn Dennison DO Primary Care Provider [phone] Reason for Visit * Reason Comments eRx-Medication Refill Encounter Details Date Type Department Care Team (Late st Contact Info) Description 03/27/2024 Refill Hematology/Oncology [facility] [address] [place] [address] Sahra Bryant CRNP [address] [place] [address] Polycythemia vera (HCC) Allergies Active Allergy Reactions Criticality Noted Date Comments Meloxicam Other (Please comment) 12/08/2020 Hyperkalemia Novocain Other (Please comment) 04/27/2010 Chest tightness, uses Carbocaine instead Rapid heart rate, chest tightness, feeling of doom/panic. Unlikely to be [place] allergy. Nearly always due to intravascular epi injection. Discussed with patient. documented as of this encounter (statuses as of 03/27/2024) Medications Medication Sig Dispensed Refills Start Date [...] (DOSE INCREASE) 44 Capsule 4 03/27/2024 Active Hydroxyurea 500 MG Oral Capsule (Hydrea)Indicati ons:Polycythemia vera (HCC) Take two 500mg caps (1000mg total) by mouth on Mondays, Wednesdays, and Fridays and one 500mg cap by mouth on Sundays, Tuesdays, , and Saturdays 44 Capsule 3 11/08/2023 Discontinued documented as of this encounter (statuses as of 03/27/2024) Active Problems Problem Noted Date Diagnosed Date [...] as of this encounter (statuses as of 03/27/2024) Resolved Problems Problem Noted Date Diagnosed Date Resolved Date Essential and other specified forms of tremor 11/29/19 13 02/20/2017 Asthma with severity to be determined 12/16/2009 09/17/2014 Overview: Per Asthma Taxonomy ICD-10 update of inactive term Dyslipidemia, goal to be determined 06/03/2009 12/01/2009 Overview: Per Lipid Taxonomy. EXTRINSIC ASTHMA, UNSPEC 05/11/2005 Irritable bowel syndrome documented as of this encounter (statuses as of 03/27/2024) Immunizations Name Administration Dates Next Due COVID-19 [...] on file Are you (or your family) christiaon eless or worried that you might be [...] encounter Miscellaneous Notes * Telephone Encounter - Yamilet Tariq LPN - 03/27/2024 9:47 AM EDTPending Prescriptions: Disp Refills Hydroxyurea 500 MG Oral Capsule (Hydrea) 44 Cap*4 Sig: TAKE 2 CAPSULES ON MONDAYS, WEDNESDAYS, AND FRIDAYS AND 1 CAPSULE ON SUNDAYS, TUESDAYS, THURSDAYS, AND SATURDAYS (DOSE INCREASE) * Telephone Encounter - Yamilet Tariq LPN - 03/27/2024 9:44 AM EDT Refill request for Hydroxyurea 500 mg pended below: Last Refill: 11/08/2023 Last seen: 10/18/2023 Next Appt.: 06/02/2024 documented in this encounter Plan of Treatment Upcoming Encounters Date Type Department Care Team (Late st Contact Info) Description 04/21/2024 9:00 AM EDT Pharmacy Pharmacy Hematology Oncology [facility] [address] [place] [address] [facility], [facility] Hem/Onc [address] [place] [address] 04/28/2024 10:00 AM EST Office Visit Cardiology, [facility] [address] [facility] [place] [address] Bolivra Doshi PA-C [address] [place] [address] 06/02/2024 11:00 AM EST Office Visit Hematology/Oncology [facility] [address] [facility] [place] [address] Sahra Bryant CRNP [address] [place] [address] 07/01/2024 8:20 AM EST Office Visit Family Practice [facility] [place] [address] Kathryn Dennison DO [address] [place] [address] 07/15/2024 11:15 AM EST Office Visit General Surgery, [facility] [address] [facility] [place] [address] Kathy Haskins MD [address] [place], [place] [id number] Health Maintenance Due Date Last Done Comments [...] Directives occurred with: Not Discussed Care Teams Quality Assurance Assessor Relationship Specialty Start Date End Date Kathryn Dennison DO [address] [place] [address] PCP - General Family Medicine 09/28/16 documented as of this encounter
--- OUTSIDE RECORDS SUMMARY | 2024-05-10 11:27 | External Medical Summary | Summary of Care ---
Author Name Unknown Organization [facility] Address [address] [place] [address] Phone [phone] Care Team Providers Care Quality Control Clerk Name Role Phone SanjeevKathryn rodriguez Leo WARD Primary Care Provider [phone] Reason for Visit * Reason Comments Medication Management Encounter Details Date Type Department Care Team (Late st Contact Info) Description 03/24/2024 9:00 AM EDT Pharmacy Pharmacy Hematology Oncology [facility] [address] [place], [place] [phone] [facility], [facility] Hem/Onc [address] [place], [place] [id number] PV (polycythemia vera) ([facility]ERLY [facility])* Allergies Active Allergy Reactions Criticality Noted Date [...] this encounter Progress Notes * Mirian Medina, [facility] - 03/21/2024 10:58 AM EDT MEDICATION THERAPY MANAGEMENT HYDROXYUREA TREATMENT PROGRESS NOTE Vanna Bailey Kaelyn [phone] Patient Phone Numbers Preferred Lab: [facility] Pharm[facility]: [facility] Communication: Left message Treatment: Medication: Hydroxyurea (Hydrea) Indication/Staging/Diagnosis Code: P Vera, JAK2+ / D45 Dose: 1000mg MWF, 500mg AOD (DI 10/18/23) Administration: +/- food Start Date: 07/21/23 Primary Assembler [employer]/Oncologist: Leo Bryant NP PLT goal: 400-500K HCT [...] 1000mg MWF and 500mg AOD Interval History: N/A Changes to medication list since last visit? No Assessment and Plan: PLT at goal HCT at goal All other labs stable Continue current hydrea dose and monthly labs Assessment of compliance: N/A Dose adjustment needed based on lab or adverse drug reaction? No Follow up: 1 month Mirian Medina, PharmD, BCOP Clinical Pharmacist, [facility] Oral Chemotherapy [facility] 03/21/2024, 11:00 AM Monitoring Parameters: Estimated CrCl Serum creatinine: [...] Pertinent Labs: Latest Reference Range & Units 01/21/24 09:53 02/21/24 09:10 03/21/24 09:07 WBC 4.00 - 10.80 K/uL 7.04 7.01 5.24 RBC 3.85 - 5.15 M/uL 3.56 3.73 3.52 HGB 12.0 - 15.3 g/dL 13.9 14.6 14.1 HCT 36.0 - 45.2 % 40.4 43.0 40.8 MCV 81.5 - 97.5 fL 113.5 115.3 115.9 MCH 27.0 - 34.0 pg 39.0 39.1 40.1 MCHC 32.0 - 36.0 g/dL 34.4 34.0 34.6 RDW 11.5 - 15.5 % 14.4 13.8 13.5 PLT 140 - 400 K/uL 300 290 303 MPV 6.6 - 11.1 fL 9.3 9.1 9.3 CBC WITH WBC DIFFERENTIAL Rpt ! Rpt Rpt ! Absolute Neutrophils 1.80 - 7.70 K/uL 3.40 3.64 2.18 Time Spent on Encounter: 6 - 10 minutes Encounter Group: Hematology Encounter Interventions Item Category: Oral Chemotherapy Hydroxurea Problem/Rationale: Effectiveness: Needs additional monitoring - Medication Requires monitoring Safety: Needs additional monitoring - Medication Requires monitoring Pharmacist Intervention(s): Lab monitoring Magnitude of Intervention: Monitoring with direction (Level 1) documented in this encounter Plan of Treatment Upcoming Encounters Date Type Department Care Team (Late st Contact Info) Description 04/21/2024 9:00 AM EDT Pharmacy Pharmacy Hematology Oncology [facility] [address] [place] [address] [facility] Hem/Onc [address] [place] [address] 04/28/2024 10:00 AM EST Office Visit Cardiology, [facility] [place] [address] Bolivar Doshi PA-C [address] [place] [address] 06/02/2024 11:00 AM EST Office Visit Hematology/Oncology [facility] [address] [place] [address] Sahra Bryant CRNP [address] [place] [address] 07/01/2024 8:20 AM EST Office Visit Family Practice [facility] [place] [address] Kathryn Dennison DO 132 [facility] [place] [address] 07/15/2024 11:15 AM EST Office Visit General Surgery, [facility] [place] [address] Kathy Haskins MD [address] [place], [place] [phone] Health Maintenance Due Date Last Done Comments [...] occurred with: Not Discussed Care Teams Quality Control Clerk Relationship Specialty Start Date End Date Kathryn Dennison DO [address] [place] [address] PCP - General Family Medicine 09/28/16 documented as of this encounter
--- OUTSIDE RECORDS SUMMARY | 2024-05-10 11:27 | External Medical Summary ---
Author Name Unknown Address Unknown Organization K[facility] [place] [address] Laboratory Report Ordering Provider Test Date Status JONATHON HERNÁNDEZ 02/21/2024 09:10:28 Final Observation Date Value Abnormality Reference (Units ) Status SYNC LEUKOCYTES IN BLOOD BY AUTOMATED COUNT 02/21/2024 09:10:28 7.01 4.00-10.80 (K/uL) Final Segs 02/21/2024 09:10:28 52.0 40.0-75.0 (%) Final Lymphs % 02/21/2024 09:10:28 36.1 18.0-42.0 (%) Final Monos 02/21/2024 09:10:28 10.8 1.0-11.0 (%) Final Eosinophils 02/21/2024 09:10:28 1.0 0.0-6.0 (%) Final Basos 02/21/2024 09:10:28 0.1 0.0-2.0 (%) Final Absolute Segs 02/21/2024 09:10:28 3.64 1.80-7.70 (K/uL) Final Lymphs, absolute 02/21/2024 09:10:28 2.53 1.00-4.80 (K/ul) Final Monos, Abs 02/21/2024 09:10:28 0.76 0.00-1.10 (K/uL) Final Eos, Abs 02/21/2024 09:10:28 0.07 0.00-0.70 (K/uL) Final Basos, Abs 02/21/2024 09:10:28 0.01 0.00-0.20 (K/uL) Final Performing Location [facility] [place] [address]
--- OUTSIDE RECORDS SUMMARY | 2024-05-10 11:27 | External Medical Summary | Summary of Care ---
Author Name Unknown Organization [facility] Address [address] [place] [address] Phone [phone] Care Team Providers Care Mechanical Lead Name Role Phone Kathryn Dennison DO Primary Care Provider [phone] Reason for Visit * Reason Comments Outpatient Testing Encounter Details Date Type Department Care Team (Late st Contact Info) Description 02/21/2024 9:10 AM EDT [facility] [address] [place] [address] [place] [address] [place] [address] Polycythemia vera (HCC) Allergies Active Allergy Reactions Criticality Noted Date Comments Meloxicam Other (Please comment) 12/08/2020 Hyperkalemia Novocain Other (Please comment) 04/27/2010 Chest tightness, uses Carbocaine instead Rapid heart rate, chest tightness, feeling of doom/panic. Unlikely to be [place] allergy. Nearly always due to intravascular epi injection. Discussed with patient. documented as of this encounter (statuses as of 02/21/2024) Medications Medication Sig Dispensed Refills Start Date End Date Status PROBIOTIC PO CAPS Take 1 Cap by mouth. Takes every 3 days Active Coenzyme Q10 (COQ10) 100 MG CAPS Take 1 Tab by mouth daily. Active Metoprolol Succinate ER 50 MG Oral Tablet Extended Release 24 Hour (toPROL XL) TAKE 1 TABLET IN THE MORNING 90 Tablet 3 02/09/2023 Active Rosuvastatin Calcium 20 MG Oral Tablet [...] A DAY 180 Tablet 3 12/14/2023 Active documented as of this encounter (statuses as of 02/21/2024) Active Problems Problem Noted Date Diagnosed Date [...] as of this encounter (statuses as of 02/21/2024) Resolved Problems Problem Noted Date Diagnosed Date Resolved Date Essential and other specified forms of tremor 11/29/19 13 02/20/2017 Asthma with severity to be determined 12/16/2009 09/17/2014 Overview: Per Asthma Taxonomy ICD-10 update of inactive term Dyslipidemia, goal to be determined 06/03/2009 12/01/2009 Overview: Per Lipid Taxonomy. EXTRINSIC ASTHMA, UNSPEC 05/11/2005 Irritable bowel syndrome documented as of this encounter (statuses as of 02/21/2024) Immunizations Name Administration Dates Next Due COVID-19 [...] Encounter Note - Irma Camargo CRNP - 02/21/2024 4:28 PM EDT Labs ok MSM documented in this encounter Plan of Treatment Upcoming Encounters Date Type Department Care Team (Late st Contact Info) Description 03/24/2024 9:00 AM EDT Pharmacy Pharmacy Hematology Oncology [facility] [address] [place] [address] [facility] Hem/Onc [address] [place] [address] 04/28/2024 10:00 AM EST Office Visit Cardiology, [facility] [address] [place] [address] Bolivar Doshi PA-C [address] [place] [address] 06/02/2024 11:00 AM EST Office Visit Hematology/Oncology [facility] [address] [facility] [address] Sahra Bryant CRNP [address] [place] [address] 07/01/2024 8:20 AM EST Office Visit Family Practice [facility] [address] [place] [address] Kathryn Dennison DO [address] [place] [address] Health Maintenance Due Date Last Done Comments Meningitis B Vaccine (Bexsero/Trumemba) (1 of 4 - Increased Risk) 1950 Zoster Vaccines (1 of 2) 08/26/1959 MENINGOCOCCAL (MENACTRA/MENVEO) (2 - Risk 2-dose series) 07/22/2014 05/27/2014 Adult Wellness Visit 03/25/2022 03/25/2021 Depression Screening 03/25/2022 03/25/2021 COVID-19 Vaccine ( - season) 2023 03/29/2023, 08/22/2020, 07/15/2020 Influenza Vaccine (FLU shot) [...] Date/Time Associated Diagnosis Comments DIFFERENTIAL, AUTOMATED STAT 02/21/2024 9:10 AM EDT Polycythemia vera (HCC) CBC STAT 02/21/2024 9:10 AM EDT Polycythemia vera (HCC) CBC STAT 02/21/2024 9:10 AM EDT Polycythemia vera (HCC) documented in this encounter Results * DIFFERENTIAL, AUTOMATED (02/21/2024 9:10 AM EDT) WBC 7.01 4.00 - 10.80 K/uL 02/21/2024 9:15 AM EDT [facility] 56-02 Neutrophils % 52.0 40.0 - 75.0 % 02/21/2024 9:15 AM EDT [facility] 56-02 Lymphocytes % 36.1 18.0 - 42.0 % 02/21/2024 9:15 AM EDT [facility] 56-02 Monocytes % 10.8 1.0 - 11.0 % 02/21/2024 9:15 AM EDT [facility] 56-02 Eosinophils % 1.0 0.0 - 6.0 % 02/21/2024 9:15 AM EDT [facility] 56-02 Basophils % 0.1 0.0 - 2.0 % 02/21/2024 9:15 AM EDT [facility] 56-02 Absolute Neutrophils 3.64 1.80 - 7.70 K/uL 02/21/2024 9:15 AM EDT [facility] 56-02 Absolute Lymphocytes 2.53 1.00 - 4.80 K/ul 02/21/2024 9:15 AM EDT [facility] 56-02 Absolute Monocytes 0.76 0.00 - 1.10 K/uL 02/21/2024 9:15 AM EDT [facility] 56-02 Absolute Eosinophils 0.07 0.00 - 0.70 K/uL 02/21/2024 9:15 AM EDT [facility] 56-02 Absolute Basophils 0.01 0.00 - 0.20 K/uL 02/21/2024 9:15 AM EDT [facility] 56-02 Blood Venous blood specimen / Unknown Venipuncture / Unknown 02/21/2024 9:10 AM EDT 02/21/2024 9:10 AM EDT Sahra WOMACK LAB BLOOD ORDER ROB [facility] [address]- [address] [place] [address] * CBC (02/21/2024 9:10 AM EDT) WBC 7.01 4.00 - 10.80 K/uL 02/21/2024 9:15 AM EDT [facility] 56 RBC 3.73 3.85 - 5.15 M/uL 02/21/2024 9:15 AM EDT [facility] 56 HGB 14.6 12.0 - 15.3 g/dL 02/21/2024 9:15 AM EDT [facility] 56 HCT 43.0 36.0 - 45.2 % 02/21/2024 9:15 AM EDT [facility] 56 MCV 115.3 81.5 - 97.5 fL 02/21/2024 9:15 AM EDT [facility] 56 MCH 39.1 27.0 - 34.0 pg 02/21/2024 9:15 AM EDT [facility] 56 MCHC 34.0 32.0 - 36.0 g/dL 02/21/2024 9:15 AM EDT [facility] 56 RDW 13.8 11.5 - 15.5 % 02/21/2024 9:15 AM EDT [facility] 56 PLT 290 140 - 400 K/uL 02/21/2024 9:15 AM EDT [facility] 56 MPV 9.1 6.6 - 11.1 fL 02/21/2024 9:15 AM EDT [facility] 56 Blood Venous blood specimen / Unknown Venipuncture / Unknown 02/21/2024 9:10 AM EDT 02/21/2024 9:10 AM EDT Sahra WOMACK LAB BLOOD ORDER ROB [facility] [address] [place] [address] documented in this encounter Visit Diagnoses Diagnosis [...] Directives occurred with: Not Discussed Care Teams Mechanical Lead Relationship Specialty Start Date End Date Kathryn Dennison DO [address] [place] [address] PCP - General Family Medicine 09/28/16 documented as of this encounter
--- OUTSIDE RECORDS SUMMARY | 2024-05-10 11:27 | External Medical Summary | Summary of Care ---
Author Name Unknown Organization [facility] Address [address] [place] [address] Phone [phone] Care Team Providers Care Electrician Control Equipment Name Role Phone Kathryn Dennison DO Primary Care Provider [phone] Encounter Details Date Type Department Care Team (Late st Contact Info) Description 03/11/2024 Orders Only Outcomes Research Department [address] [place] [address] Giovanna Mullen CHRA [employer] [facility] Other*[id number] Allergies Active Allergy Reactions Criticality Noted Date Comments Meloxicam Other (Please comment) 12/08/2020 Hyperkalemia Novocain Other (Please comment) 04/27/2010 Chest tightness, uses Carbocaine instead Rapid heart rate, chest tightness, feeling of doom/panic. Unlikely to be [place] allergy. Nearly always due to intravascular epi injection. Discussed with patient. documented as of this encounter (statuses as of 03/11/2024) Medications Medication Sig Dispensed Refills Start Date [...] as of this encounter (statuses as of 03/11/2024) Active Problems Problem Noted Date Diagnosed Date [...] as of this encounter (statuses as of 03/11/2024) Resolved Problems Problem Noted Date Diagnosed Date Resolved Date Essential and other specified forms of tremor 11/29/19 13 02/20/2017 Asthma with severity to be determined 12/16/2009 09/17/2014 Overview: Per Asthma Taxonomy ICD-10 update of inactive term Dyslipidemia, goal to be determined 06/03/2009 12/01/2009 Overview: Per Lipid Taxonomy. EXTRINSIC ASTHMA, UNSPEC 05/11/2005 Irritable bowel syndrome documented as of this encounter (statuses as of 03/11/2024) Immunizations Name Administration Dates Next Due COVID-19 [...] No 05/21/2023 Does the household have a [facility] source [facility] income? (Household - [...] AM EDT Pharmacy Pharmacy Hematology Oncology [facility] [address] [place] [address] [facility], [facility] Hem/Onc [address] [place] [address] 04/28/2024 10:00 AM EST Office Visit Cardiology, [facility] [address] [place] [address] Bolivar Doshi PA-C [address] [place] [address] 06/02/2024 11:00 AM EST Office Visit Hematology/Oncology [facility] [address] [place] [phone] Sahra Bryant CRNP [address] [place] [address] 07/01/2024 8:20 AM EST Office Visit Family Practice [facility] [address] [place] [address] Kathryn Dennison DO [address] [place] [address] Scheduled Orders Name Type Priority Associated Diagnoses Orde r Schedule MYCODE SUBSEQUENT ADULT Lab Routine [employer] Other*[id number] Every 6 Months for 2 Occurrences starting 03/11/2024 until 03/31/2025 Health Maintenance Due Date Last Done Comments [...] as of this encounter Visit Diagnoses Diagnosis [employer] Other*[id number] documented in this encounter Advance Directives * Full Code (Latest Code Status on File) Date Activated Date Inactivated Comments 05/25/2014 2:38 PM 05/27/2014 6:15 PM Question Answer Comments Discussion of Advance Directives occurred with: Not Discussed * Full Code Date Activated Date Inactivated Comments 05/25/2014 8:54 AM 05/25/2014 2:38 PM Question Answer Comments Discussion of Advance Directives occurred with: Not Discussed Care Teams Electrician Control Equipment Relationship Specialty Start Date End Date Kathryn Dennison DO [address] [place] [address] PCP - General Family Medicine 09/28/16 documented as of this encounter
--- OUTSIDE RECORDS SUMMARY | 2024-05-10 11:27 | External Medical Summary | Summary of Care ---
Author Name Unknown Organization [facility] Address [address] [place] [address] Phone [phone] Care Team Providers Care Fruit Sprayer Name Role Phone SanjeevKathryn rodriguez Leo WARD Primary Care Provider [phone] Reason for Visit * Reason Comments Medication Management Encounter Details Date Type Department Care Team (Late st Contact Info) Description 02/21/2024 9:00 AM EDT Pharmacy Pharmacy Hematology Oncology [facility] [address] [place], [place] [id number] [facility], [place], [facility] Hem/Onc [address] [place], [place] [id number] PV (polycythemia vera) ([facility])* Allergies Active Allergy Reactions Criticality Noted Date [...] this encounter Progress Notes * Mirian Medina, [facility] - 02/21/2024 11:43 AM EDT MEDICATION THERAPY MANAGEMENT HYDROXYUREA TREATMENT PROGRESS NOTE Vanna Leo Art [phone] Patient Phone Numbers Preferred Lab: [facility] Pharmacy: [facility] Communication: Spoke to: Patient Treatment: Medication: Hydroxyurea (Hydrea) Indication/Staging/Diagnosis Code: P Vera, JAK2+ / D45 Dose: 1000mg MWF, 500mg AOD (DI 10/18/23) Administration: +/- food Start Date: 07/21/23 Primary Senior Administrator Support/Oncologist: Leo Bryant NP PLT goal: 400-500K HCT [...] 1000mg MWF and 500mg AOD Interval History: No concerns, tolerating therapy well Changes to medication list since last visit? No Assessment and Plan: PLT at goal HCT at goal All other labs stable Continue current hydrea dose and monthly labs - pt will schedule own appt Assessment of compliance: compliant Dose adjustment needed based on lab or adverse drug reaction? No Follow up: 1 month Mirian Medina, PharmD, BCOP Clinical Pharmacist, MTDM Oral Chemotherapy [facility] 02/21/2024, 11:48 AM Monitoring Parameters: Estimated CrCl Serum creatinine: [...] Pertinent Labs: Latest Reference Range & Units 12/20/23 09:35 01/21/24 09:53 02/21/24 09:10 WBC 4.00 - 10.80 K/uL 5.56 7.04 7.01 RBC 3.85 - 5.15 M/uL 3.76 3.56 3.73 HGB 12.0 - 15.3 g/dL 14.1 13.9 14.6 HCT 36.0 - 45.2 % 42.2 40.4 43.0 MCV 81.5 - 97.5 fL 112.2 113.5 115.3 MCH 27.0 - 34.0 pg 37.5 39.0 39.1 MCHC 32.0 - 36.0 g/dL 33.4 34.4 34.0 RDW 11.5 - 15.5 % 15.2 14.4 13.8 PLT 140 - 400 K/uL 284 300 290 MPV 6.6 - 11.1 fL 9.0 9.3 9.1 CBC WITH WBC DIFFERENTIAL Rpt ! Rpt ! Rpt Absolute Neutrophils 1.80 - 7.70 K/uL 2.64 3.40 3.64 Time Spent on Encounter: 6 - 10 [...] 9:00 AM EDT Pharmacy Pharmacy Hematology Oncology [facility] [address] [place] [address] Gm, [facility] Hem/Onc [address] [place] [address] 04/28/2024 10:00 AM EST Office Visit Cardiology, [facility] [address] [place] [address] Bolivar Doshi PA-C [address] [place] [address] 06/02/2024 11:00 AM EST Office [facility]On[facility] [address] [facility] [phone] Sahra Bryant CRNP [address] [place] [address] 07/01/2024 8:20 AM EST Office Visit Family Practice [facility] [address] [place] [address] Kathryn Dennison DO [address] [facility] [place] [address] Health Maintenance Due Date Last Done Comments Meningitis B Vaccine (Bexsero/Trumemba) (1 of 4 - Increased Risk) 1950 Zoster Vaccines (1 of 2) 08/26/1959 MENINGOCOCCAL (MENACTRA/MENVEO) (2 - Risk 2-dose series) 07/22/2014 05/27/2014 Adult Wellness Visit 03/25/2022 03/25/2021 Depression Screening 03/25/2022 03/25/2021 COVID-19 Vaccine ( season) 2023 03/29/2023, 08/22/2020, 07/15/2020 Influenza Vaccine [...] Directives occurred with: Not Discussed Care Teams Fruit Sprayer Relationship Specialty Start Date End Date Kathryn Dennison DO [address] [place] [address] PCP - General Family Medicine 09/28/16 documented as of this encounter
--- OUTSIDE RECORDS SUMMARY | 2024-05-10 11:27 | External Medical Summary ---
Author Name Unknown Address Unknown Organization K[facility] [place] [address] Laboratory Report Ordering Provider Test Date Status JONATHON HERNÁNDEZ 03/21/2024 09:07:16 Final Observation Date Value Abnormality Reference (Units ) Status SYNC LEUKOCYTES IN BLOOD BY AUTOMATED COUNT 03/21/2024 09:07:16 5.24 4.00-10.80 (K/uL) Final Segs 03/21/2024 09:07:16 41.5 40.0-75.0 (%) Final Lymphs % 03/21/2024 09:07:16 43.9 Above high normal 18.0-42.0 (%) Final Monos 03/21/2024 09:07:16 13.4 Above high normal 1.0-11.0 (%) Final Eosinophils 03/21/2024 09:07:16 1.0 0.0-6.0 (%) Final Basos 03/21/2024 09:07:16 0.2 0.0-2.0 (%) Final Absolute Segs 03/21/2024 09:07:16 2.18 1.80-7.70 (K/uL) Final Lymphs, absolute 03/21/2024 09:07:16 2.30 1.00-4.80 (K/ul) Final Monos, Abs 03/21/2024 09:07:16 0.70 0.00-1.10 (K/uL) Final Eos, Abs 03/21/2024 09:07:16 0.05 0.00-0.70 (K/uL) Final Basos, Abs 03/21/2024 09:07:16 0.01 0.00-0.20 (K/uL) Final Performing Location [facility] [place] [address]
--- OUTSIDE RECORDS SUMMARY | 2024-05-10 11:27 | External Medical Summary ---
Author Name Unknown Address Unknown Organization [facility] [place] [address] Laboratory Report Ordering Provider Test Date Status JONATHON HERNÁNDEZ 03/21/2024 09:07:16 Final Observation Date Value Abnormality Reference (Units ) Status WBC, Total 03/21/2024 09:07:16 5.24 4.00-10.8 0 (K/uL) Final RBC 03/21/2024 09:07:16 3.52 3.85-5.15 (M/uL) Final Hemoglobin 03/21/2024 09:07:16 14.1 12.0-15.3 (g/dL) Final HCT 03/21/2024 09:07:16 40.8 36.0-45.2 (%) Final MCV 03/21/2024 09:07:16 115.9 81.5-97.5 (fL) Final MCH 03/21/2024 09:07:16 40.1 27.0-34.0 (pg) Final MCHC 03/21/2024 09:07:16 34.6 32.0-36.0 (g/dL) Final RDW 03/21/2024 09:07:16 13.5 11.5-15.5 (%) Final Platelets 03/21/2024 09:07:16 303 140-400 (K /uL) Final MPV 03/21/2024 09:07:16 9.3 6.6-11.1 ( fL) Final Performing Location [facility] [place] [address]
--- OUTSIDE RECORDS SUMMARY | 2024-05-10 11:27 | External Medical Summary | Summary of Care ---
Author Name Unknown Organization [facility] Address [address] [place] [address] Phone [phone] Care Team Providers Care Orthotist Prosthetist Name Role Phone Kathryn Dennison DO Primary Care Provider [phone] Encounter Details Date Type Department Care Team (Late st Contact Info) Description 03/24/2024 Telephone Hematology/Oncology [facility] [address] [facility] [place] [address] Sahra Bryant CRNP [address] [place] [address] Allergies Active Allergy Reactions Criticality Noted Date Comments Meloxicam Other (Please comment) 12/08/2020 Hyperkalemia Novocain Other (Please comment) 04/27/2010 Chest tightness, uses Carbocaine instead Rapid heart rate, chest tightness, feeling of doom/panic. Unlikely to be [place] allergy. Nearly always due to intravascular epi injection. Discussed with patient. documented as of this encounter (statuses as of 03/24/2024) Medications Medication Sig Dispensed Refills Start Date [...] as of this encounter (statuses as of 03/24/2024) Active Problems Problem Noted Date Diagnosed Date [...] as of this encounter (statuses as of 03/24/2024) Resolved Problems Problem Noted Date Diagnosed Date Resolved Date Essential and other specified forms of tremor 11/29/19 13 02/20/2017 Asthma with severity to be determined 12/16/2009 09/17/2014 Overview: Per Asthma Taxonomy ICD-10 update of inactive term Dyslipidemia, goal to be determined 06/03/2009 12/01/2009 Overview: Per Lipid Taxonomy. 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 Patient was concerned with elevated lymphocytes & monocytes, explained that per [facility], they can sometimes be elevated if she is slightly sick or has allergies. She has concern over a nose bleed & [facility] stated this was not related. Patient expressed understand & gratitude. She will repeat labs in one month, and will call if she has any furt her questions/concerns. NEHA Cabrera Director Of Hotel Hematology Oncology Oral Chemotherapy Clinic Medication Therapy Disease Management [facility] 03/24/24,8:40 AM Time Spent on Encounter: 6 - 10 minutes documented in this encounter Plan of Treatment Upcoming Encounters Date Type Department Care Team (Late st Contact Info) Description 03/24/2024 9:00 AM EDT Pharmacy Pharmacy Hematology Oncology [facility] [address] [place] [address] [facility], [facility] Hem/Onc [address] [place] [address] PV (polycythemia vera) (HCC)* 04/21/2024 9:00 AM EDT Pharmacy Pharmacy Hematology Oncology [facility] [address] [place] [address] [facility], [facility] Hem/Onc [address] [place] [address] 04/28/2024 10:00 AM EST Office Visit Cardiology, [facility] [address] [place] [address] Bolivar Doshi PA-C [address] [place] [address] 06/02/2024 11:00 AM EST Office Visit Hematology/[facility] [address] [facility] [phone] Sahra Bryant CRNP [address] [place] [address] 07/01/2024 8:20 AM EST Office Visit Family Practice [facility] [address] [place] [address] Kathryn Dennison DO [address] [place] [address] 07/15/2024 11:15 AM EST Office Visit General Surgery, [facility] [address] [place] [address] Kathy Haskins MD [address] [place], [place] [phone] Health Maintenance Due Date Last Done Comments [...] Directives occurred with: Not Discussed Care Teams Orthotist Prosthetist Relationship Specialty Start Date End Date Kathryn Dennison DO [address] [place] [address] PCP - General Family Medicine 09/28/16 documented as of this encounter
--- OUTSIDE RECORDS SUMMARY | 2024-05-10 11:27 | External Medical Summary | Summary of Care ---
Author Name Unknown Organization [facility] Address [address] [place] [address] Phone [phone] Care Team Providers Care Jig Worker Name Role Phone Kathryn Dennison DO Primary Care Provider [phone] Reason for Visit * Reason Comments Outpatient Testing Encounter Details Date Type Department Care Team (Late st Contact Info) Description 02/21/2024 9:10 AM EDT [facility] [place] [address] [place] [address] [place], [facility] [address] [place] [address] Polycythemia vera (HCC) Allergies Active Allergy Reactions [...] lent, No Preserve, IM 04/08/2017 Seasonal Influenza, Split, I IV3, With Preserve, Inj 03/02/2015,04/25/2014,05/04/2013,04/16,04/04/2011,04/05/2010,04/21/2008 ,04/17/2007,04/18/2006 Seasonal Influenza, Trivalen t, Adjuvanted, 65+ yrs 04/01/2019 TD, Preservative Free 11/22/2011 TDAP (age [...] 05/21/2023 Does the household have a re lar source of income? (Household - for ages [...] 04/28/2024 10:00 AM EST Office Visit Cardiology, [facility] [address] [place] [address] Bolivar Doshi PA-C [address] [place] [address] 06/02/2024 11:00 AM EST Office Visit Hematology[facility]Oncology [facility] [address] [facility] [phone] Sahra Bryant CRNP [address] [place] [address] [place] [address] 07/01/2024 8:20 AM EST Office Visit Family Practice [facility] [address] [place] [address] Kathryn Dennison DO [address] [place] [address] Health Maintenance Due Date Last Done Comments [...] - 10.80 K/uL 02/21/2024 9:15 AM EDT [facility] 56-02 Neutrophils % 52.0 40.0 - 75.0 % 02/21/2024 9:15 AM EDT [facility] 56-02 Lymphocytes % 36.1 18.0 - 42.0 % 02/21/2024 9:15 AM EDT [facility] 56-02 Monocytes % 10.8 1.0 - 11.0 % 02/21/2024 9:15 AM EDT [facility] 56-02 Eosinophils % 1.0 0.0 - 6.0 % 02/21/2024 9:15 AM EDT [facility] 56-02 Basophils % 0.1 0.0 - 2.0 % 02/21/2024 9:15 AM EDT [facility] 56 Absolute Neutrophils 3.64 1.80 - 7.70 K/uL 02/21/2024 9:15 AM EDT [facility] Absolute Lymphocytes 2.53 1.00 - 4.80 K/ul 02/21/2024 9:15 AM EDT [facility] Absolute Monocytes 0.76 0.00 - 1.10 K/uL 02/21/2024 9:15 AM EDT [facility] 56 Absolute Eosinophils 0.07 0.00 - 0.70 K/uL 02/21/2024 9:15 AM EDT [facility] Absolute Basophils 0.01 0.00 - 0.20 K/uL 02/21/2024 9:15 AM EDT [facility] Blood Venous blood specimen / Unknown Venipuncture / Unknown 02/21/2024 9:10 AM EDT 02/21/2024 9:10 AM EDT Sahra WOMACK LAB BLOOD ORDER ROB [facility] [address] [place] [address] * CBC (02/21/2024 9:10 AM EDT) WBC 7.01 4.00 - 10.80 K/uL 02/21/2024 9:15 AM EDT [facility] RBC 3.73 3.85 - 5.15 M/uL 02/21/2024 9:15 AM EDT [facility] HGB 14.6 12.0 - 15.3 g/dL 02/21/2024 9:15 AM EDT [facility] HCT 43.0 36.0 - 45.2 % 02/21/2024 9:15 AM EDT [facility] MCV 115.3 81.5 - 97.5 fL 02/21/2024 9:15 AM EDT [facility] MCH 39.1 27.0 - 34.0 pg 02/21/2024 9:15 AM EDT [facility] 56 MCHC 34.0 32.0 - 36.0 g/dL 02/21/2024 9:15 AM EDT [facility] 56 RDW 13.8 11.5 - 15.5 % 02/21/2024 9:15 AM EDT [facility] 56 PLT 290 140 - 400 K/uL 02/21/2024 9:15 AM EDT [facility] 56 MPV 9.1 6.6 - 11.1 fL 02/21/2024 9:15 AM EDT [facility] 56 Blood Venous blood specimen / Unknown Venipuncture / Unknown 02/21/2024 9:10 AM EDT 02/21/2024 9:10 AM EDT Sahra WOMACK LAB BLOOD ORDER ROB [facility] [address] [place] [address] documented in this encounter Visit Diagnoses Diagnosis [...] Directives occurred with: Not Discussed Care Teams Jig Worker Relationship Specialty Start Date End Date Kathryn Dennison DO [address] [facility] [place] [address] PCP - General Family Medicine 09/28/16 documented as of this encounter
--- OUTSIDE RECORDS SUMMARY | 2024-05-10 11:27 | External Medical Summary ---
Author Name Unknown Address Unknown Organization K09[facility] [place] [address] Laboratory Report Ordering Provider Test Date Status JONATHON HERNÁNDEZ 02/21/2024 09:10:28 Final Observation Date Value Abnormality Reference (Units ) Status WBC, Total 02/21/2024 09:10:28 7.01 4.00-10.8 0 (K/uL) Final RBC 02/21/2024 09:10:28 3.73 3.85-5.15 (M/uL) Final Hemoglobin 02/21/2024 09:10:28 14.6 12.0-15.3 (g/dL) Final HCT 02/21/2024 09:10:28 43.0 36.0-45.2 (%) Final MCV 02/21/2024 09:10:28 115.3 81.5-97.5 (fL) Final MCH 02/21/2024 09:10:28 39.1 27.0-34.0 (pg) Final MCHC 02/21/2024 09:10:28 34.0 32.0-36.0 (g/dL) Final RDW 02/21/2024 09:10:28 13.8 11.5-15.5 (%) Final Platelets 02/21/2024 09:10:28 290 140-400 (K /uL) Final MPV 02/21/2024 09:10:28 9.1 6.6-11.1 ( fL) Final Performing Location [facility] [place] [address]
[2024-05-10] MEDS: metroNIDAZOLE 500 MG/100 ML BAG IV STA (11:30)
[2024-05-10] MEDS ORDERED: ALUMINUM/MAGNESIUM SUSP 30 ML UDC PO PRN (12:19)
[2024-05-10] MEDS ORDERED: MAGNESIUM HYDROXIDE SUSP 30 ML UDC PO PRN (12:19)
[2024-05-10] MEDS ORDERED: MoRPHine SULFATE 2 MG/ML CARP IV PRN (12:34)
[2024-05-10] MEDS ORDERED: TOBRAMYCIN/DEXAMETHASONE OPH OINT PER APPLN CHARGE OPB PRN (13:27)
--- NOTE | 2024-05-10 13:46 | Urology Consultation ---
Date of Consultation May 10, 2024 Assessment & Plan (1) S/P hemorrhoidectomy: (2) Kidney stones: (3) Urinary retention: Plan 83-year-old female who was admitted for urinary retention. She reportedly had a hemorrhoidectomy in outside hospital 5 days ago and has had difficulty urinating since then. A catheter was placed in the ED and she had over 1 L of output. She had a CT scan of the abdomen pelvis which I independently reviewed which shows a right nonobstructing renal calculus and a bladder decompressed with a Sanders catheter balloon in place and significant stool in the rectum. I suspect her urinary retention is secondary to constipation following her hemorrhoidectomy Recommend bowel regimen. Once patient is having more regular stools, I think it is reasonable perform a void trial. This can be done prior to discharge if she is doing well. If she needs to go home with a catheter we can set this up as an outpatient in our office Recommend that she follows up in the future with her primary urologist regarding the urinary retention and her nonobstructing nephrolithiasis Urology to sign off. If patient leaves with the catheter please consult their service prior to discharge and we will set up outpatient removal. History of Present Illness Attending Physician: Eliseo Goldstein DO History of Present Illness 83-year-old female who was admitted for urinary retention. She reportedly had a hemorrhoidectomy in outside hospital 5 days ago and has had difficulty urinating since then. A catheter was placed in the ED and she had over 1 L of output. She had a CT scan of the abdomen pelvis which I independently reviewed which shows a right nonobstructing renal calculus and a bladder decompressed with a Sanders catheter balloon in place and significant stool in the rectum. She was afebrile with stable vitals. White blood count cell was 6, creatinine was 0.74 and a urinalysis was negative. Patient reports that she has had constipation since her hemorrhoidectomy. She has never had urinary retention before. She does follow with a urologist for history of nephrolithiasis. Allergies Allergy/AdvReac Type Severity Reaction Status Date / Time procaine [From Novocain] AdvReac Severe Made arms Unverified 05/10/24 10:26 weak Home Medications Medication Instructions Recorded Confirmed Type lactobacillus combination no.4 3 3,000 mmu cells PO 2XWK ##0 03/15/14 05/10/24 History billion cell capsule (Probiotic) apixaban 5 mg tablet (Eliquis) 5 mg PO BID 05/10/24 05/10/24 History coenzyme Q10 100 mg capsule 100 mg PO DAILY 05/10/24 05/10/24 History (CoQ-10) gabapentin 300 mg capsule 300 mg PO BID 05/10/24 05/10/24 History hydrochlorothiazide 25 mg tablet 25 mg PO DAILY 05/10/24 05/10/24 History hydroxyurea 500 mg capsule 500 mg PO UD 05/10/24 05/10/24 History metoprolol succinate 50 mg 50 mg PO DAILY 05/10/24 05/10/24 History tablet,extended release 24 hr oxycodone 5 mg tablet 5 mg PO Q6H PRN Pain 05/10/24 05/10/24 History rosuvastatin 20 mg tablet 20 mg PO DAILY 05/10/24 05/10/24 History tobramycin-dexamethasone 0.3 %-0.1 1 applic OPB DAILY PRN Rash 05/10/24 05/10/24 History % eye ointment (TobraDex) Patient History Social History Smoking Status: Never smoker Hx Alcohol Use: Yes Alcohol type: wine Hx Substance Use: No Preferred Language: Gabonese Communication Ability: Effective Chief Controller Tower Required: No Beliefs That Will Affect Care: None Current Living Situation: Alone Other Information That Helps Us Care for You: No Feels Safe at Home: Yes Safety Concerns: Feels Safe At This Time Assistive Devices: Glasses Physical Exam Physical Exam: General: Alert and oriented, no acute distress HEENT: Normocephalic, mucous membranes moist Pulmonary: Nonlabored respirations Abdomen: Nondistended : Sanders draining yellow urine Extremities: Moves all 4 spontaneously Neuro: No gross deficits Skin: Warm, dry, no rashes noted Results & Data Vital Signs (Past 12 Hours) Vital Signs Temp Pulse Pulse Resp BP BP Pulse Ox 05/10/24 12:58 63 05/10/24 12:53 67 18 136/81 99 05/10/24 12:01 68 16 136/81 99 05/10/24 11:27 70 16 149/72 H 92 05/10/24 10:33 71 14 143/77 H 100 05/10/24 10:12 69 16 151/82 H 99 05/10/24 09:30 65 13 146/76 H 99 05/10/24 09:06 77 23 163/100 H 98 05/10/24 08:41 74 05/10/24 08:15 36.9 C 80 15 162/89 H 94 O2 Del Method 05/10/24 12:58 05/10/24 12:53 05/10/24 12:01 05/10/24 11:27 05/10/24 10:33 05/10/24 10:12 05/10/24 09:30 05/10/24 09:06 05/10/24 08:41 05/10/24 08:15 Room Air PG Care Time/CCT Total # of Minutes Spent Total Time Spent with Patient: Total time spent is greater than 50% in coordination of care (as documented) at patient's floor/unit and/or counseling patient: Coding Level of Care Code 87966 INT INP/OBS CARE 2/55MIN Diagnoses S/P hemorrhoidectomy Z98.890; Z87.19 Kidney stones N20.0 Urinary retention R33.9
[2024-05-10] MEDS: SODIUM CHLORIDE 0.9% 500 ML IV SCH (13:56)
[2024-05-10] MEDS ORDERED: ONDANSETRON INJ 2 MG/ML 2 ML VIAL IV PRN (14:45)
[2024-05-10] MEDS: oxyCODONE HCL IR 5 MG TAB (IMMEDIATE RELEASE) PO PRN (15:21)
--- NOTE | 2024-05-10 15:28 | Surgery Consultation ---
Date of Consultation May 10, 2024 Assessment & Plan (1) Urinary retention: likely secondary to extrinsic obstruction caused by the distended rectum As per urology, may perform a void trial once her rectum is cleared (2) Fecal retention: Likely secondary to recent rectal surgery as a known consequence. (3) Stercoral colitis: Due to significant fecal retention Plan She has moved some stool so there is no impaction. Patient may have a bowel regimen. Consider Miralax, would hold off on Dulcolax at this time. Once her pain is better controlled, will check her rectum for healing at the surgical site. Will follow for now. 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 She presents to the ED today with the c/o the inability to urinate and has a significant amount of rectal pain. She has not been able to have significant BM although she feels a significant amount of pressure. She has been using sitz bath's and urinating during her sitz bath's. For me, she admits nausea but denies vomiting. In the ED, she had no leukocytosis and was afebrile. A CT A/P revealed moderate fecal retention with rectal wall thickening and perirectal stranding. She has been admitted to medicine with urology and general surgery consultation. Urology has seen the patient noting significant fecal retention may be the cause of the urinary retention, no primary urologic issue identified at this time. Upon my seeing the patient on the in patient floor, she continues to c/o the above. She also used the restroom and passed some stool. Allergies Allergy/AdvReac Type Severity Reaction Status Date / Time procaine [From Novocain] AdvReac Severe Made arms Unverified 05/10/24 10:26 weak Home Medications Medication Instructions Recorded Confirmed Type lactobacillus combination no.4 3 3,000 mmu cells PO 2XWK ##0 03/15/14 05/10/24 History billion cell capsule (Probiotic) apixaban 5 mg tablet (Eliquis) 5 mg PO BID 05/10/24 05/10/24 History coenzyme Q10 100 mg capsule 100 mg PO DAILY 05/10/24 05/10/24 History (CoQ-10) gabapentin 300 mg capsule 300 mg PO BID 05/10/24 05/10/24 History hydrochlorothiazide 25 mg tablet 25 mg PO DAILY 05/10/24 05/10/24 History hydroxyurea 500 mg capsule 500 mg PO UD 05/10/24 05/10/24 History metoprolol succinate 50 mg 50 mg PO DAILY 05/10/24 05/10/24 History tablet,extended release 24 hr oxycodone 5 mg tablet 5 mg PO Q6H PRN Pain 05/10/24 05/10/24 History rosuvastatin 20 mg tablet 20 mg PO DAILY 05/10/24 05/10/24 History tobramycin-dexamethasone 0.3 %-0.1 1 applic OPB DAILY PRN Rash 05/10/24 05/10/24 History % eye ointment (TobraDex) Patient History Social History Smoking Status: Never smoker Hx Alcohol Use: Yes Alcohol type: wine Hx Substance Use: No Preferred Language: [place] Communication Ability: Effective Machine Cleaner Required: No Beliefs That Will Affect Care: None Current Living Situation: Alone Feels Safe at Home: Yes Assistive Devices: Glasses Physical Exam Constitutional: healthy appearing; not ill appearing, not in distress and not diaphoretic Respiratory: normal respiratory effort; no respiratory distress, no labored breathing and does not use accessory muscles Cardiovascular: Rate/Rhythm: + tachycardic extremities are well perfused Gastrointestinal (Abdomen): Inspection/Auscultation: + abdomen distended Percussion/Palpation: abdomen soft; abdomen nontender and no guarding rectal exam deferred Skin: no jaundice and no mottling Results & Data Vital Signs (Past 12 Hours) Vital Signs Temp Pulse Pulse Resp BP BP Pulse Ox 05/10/24 13:28 37.3 C 98 H 20 142/74 H 96 05/10/24 12:58 63 05/10/24 12:53 67 18 136/81 99 05/10/24 12:01 68 16 136/81 99 05/10/24 11:27 70 16 149/72 H 92 05/10/24 10:33 71 14 143/77 H 100 05/10/24 10:12 69 16 151/82 H 99 05/10/24 09:30 65 13 146/76 H 99 05/10/24 09:06 77 23 163/100 H 98 05/10/24 08:41 74 05/10/24 08:15 36.9 C 80 15 162/89 H 94 O2 Del Method 05/10/24 13:28 Room Air 05/10/24 12:58 05/10/24 12:53 05/10/24 12:01 05/10/24 11:27 05/10/24 10:33 05/10/24 10:12 05/10/24 09:30 05/10/24 09:06 05/10/24 08:41 05/10/24 08:15 Room Air Laboratory Results Mild elevation of LFTs, no leukocytosis Results Complete Blood Count Results: RBC 3.34 M/uL (4.20-5.40) L 05/10/24 WBC 6.23 K/ul (4.8-10.8) 05/10/24 Hgb 13.5 g/dl (12.0-16.0) 05/10/24 Hct 37.5 % (37.0-47.0) 05/10/24 Plt Count 311 K/uL (130-400) 05/10/24 PG Care Time/CCT Total # of Minutes Spent Total Time Spent with Patient: Total time spent is greater than 50% in coordination of care (as documented) at patient's floor/unit and/or counseling patient: [place] [address] INT INP/OBS CARE 1/40MIN Patient Type New History Detailed Exam Expanded Problem Focused Medical Decision Making Moderate Complexity Diagnoses Urinary retention R33.9 Constipation due to outlet dysfunction K59.02 Constipation type: outlet dysfunction constipation Stercoral colitis K52.89 (2) Fecal retention Constipation type: outlet dysfunction constipation Qualified Code(s): K59.02 - Outlet dysfunction constipation
[2024-05-10] MEDS: HYDROXYUREA 500 MG CAP PO SCH (16:52)
[2024-05-10] MEDS: metroNIDAZOLE 500 MG/100 ML BAG IV SCH (18:21)
[2024-05-10] MEDS: ACETAMINOPHEN 325 MG TAB PO PRN (19:55)
[2024-05-10] MEDS: APIXABAN 5 MG TABLET PO SCH (19:56)
[2024-05-10] MEDS: GABAPENTIN 300 MG CAP PO SCH (19:56)
[2024-05-10] MEDS: NSS + 20MEQ KCL 20 MEQ/1,000 ML BAG IV ONE (23:29)
[2024-05-11] MEDS: DIGOXIN 250 MCG in SYRINGE 9 ML IV ONE (01:35)
--- NOTE | 2024-05-11 01:35 | Communication Note ---
Date of Service: May 11, 2024 Patient with rapid A-fib later resolved with IVF. Bloody bowel movements without other symptoms as per RN. AP LGIB Stercoral colitis Recent hemorrhoidectomy H&H now Hold Eliquis for now
[2024-05-11 02:51] LABS: Hematocrit (blood only) 35.9 % (37.0-47.0); Hemoglobin 12.3 g/dl (12.0-16.0); Mean Corpuscular Hemoglobin 39.8 pg (25.0-34.0); Mean Corpuscular Hgb Conc 34.3 g/dL (32.0-36.0); Mean Corpuscular Volume 116.2 fL (80.0-100.0); Mean Platelet Volume 9.5 fL (9.4-12.4); Nucleated RBC # (auto) 0.07 K/uL (0.00-0.12); Nucleated RBC % (auto) 1.3 %; Platelet Count 306 K/uL (130-400); RDW Coefficient of Variation 14.3 % (11.5-14.5); RDW Standard Deviation 60.2 fL (36.4-46.3); Red Blood Count 3.09 M/uL (4.20-5.40); White Blood Count 5.51 K/ul (4.8-10.8)
[2024-05-11 02:56] LABS: BUN Creatinine Ratio 21.1 (10-20); Creatinine Clr Calc Pharmacy 56.6 ml/min; Potassium 4.3 mmol/L (3.5-5.1)
[2024-05-11] MEDS: SODIUM CHLORIDE 0.9% 1,000 ML IV ONE (06:10)
[2024-05-11 07:38] LABS: Estimated Average Glucose 114 mg/dl; Hemoglobin A1C 5.6 % (4.5-5.6)
[2024-05-11 08:36] LABS: Hematocrit (blood only) 33.2 % (37.0-47.0); Hemoglobin 11.5 g/dl (12.0-16.0)
[2024-05-11] MEDS: ROSUVASTATIN CALCIUM 20 MG TAB PO SCH (08:52)
[2024-05-11] MEDS: ADVANCED PROBIOTIC 625 MG CAPSULE PO SCH (08:53)
[2024-05-11] MEDS ORDERED: hydroCHLOROthiazide 25 MG TAB PO SCH (09:00)
[2024-05-11] MEDS ORDERED: NON-FORMULARY MEDICATION (Coenzyme Q10 [Coq-10] 100 mg Capsule) PO SCH (09:00)
[2024-05-11] MEDS: METOPROLOL SUCC 50MG EXT REL TAB PO SCH (09:01)
[2024-05-11] MEDS: SENNA 8.6 MG TAB PO SCH (09:05)
[2024-05-11] MEDS: DOCUSATE SODIUM 100 MG CAP PO SCH (09:05)
--- NOTE | 2024-05-11 10:21 | Surgery Progress Note ---
Date of Service May 11, 2024 Assessment & Plan (1) Fecal retention: (2) Urinary retention: Plan Improving, patient is passing some stool around the impaction. Bowel regimen, may add Miralax Goal is to get to solid stool passing Will follow up in the am. Admission and Anticipated Discharge Date Admission Date: May 10, 2024 Subjective I have seen and examined this patient this am. She denies abdominal pain this am. She states she does feel improved in general "down there". Vanna is having liquid BMs and states it just pours out. Physical Exam Constitutional: healthy appearing; not ill appearing, not in distress and not diaphoretic Respiratory: normal respiratory effort; no respiratory distress, no labored breathing and does not use accessory muscles Gastrointestinal (Abdomen): Inspection/Auscultation: abdomen normal to inspection Percussion/Palpation: abdomen soft; abdomen nontender, no guarding and abdomen not rigid Results & Data Vital Signs (Past 12 Hours) Vital Signs Temp Pulse Resp BP BP Pulse Ox O2 Del Method 05/11/24 08:19 36.3 C L 62 18 100/64 95 Room Air 05/11/24 03:23 74 18 95/58 L 94 Room Air 05/11/24 01:28 72 109/66 95 Room Air 05/11/24 00:59 116 H 108/62 05/11/24 00:00 102 H 95/63 L 90 Room Air 05/10/24 23:25 110 H 96/61 L 93 Room Air 05/10/24 23:02 122 H 97/62 L PG Care Time/CCT Total # of Minutes Spent Total Time Spent with Patient: Total time spent is greater than 50% in coordination of care (as documented) at patient's floor/unit and/or counseling patient: Coding Level of Care Code 95421 SUB INP/OBS CARE 07/19MIN Diagnoses Constipation due to outlet dysfunction K59.02 Constipation type: outlet dysfunction constipation Urinary retention R33.9 (1) Fecal retention Constipation type: outlet dysfunction constipation Qualified Code(s): K59.02 - Outlet dysfunction constipation
[2024-05-11] MEDS: cefTRIAXone SODIUM 2,000 MG/50 ML BAG IV SCH (12:21)
--- NOTE | 2024-05-11 13:14 | Hospitalist Progress Note ---
Date of Service May 11, 2024 Assessment & Plan (1) Stercoral colitis: Plan: Stercoral colitis/fecal retention Overflow diarrhea --CT ABD:No bowel obstruction or pneumoperitoneum. Moderate fecal retention of the rectum with findings suggestive of a stercoral proctitis. Findings could be correlated with colonoscopy to exclude an underlying mucosal lesion. Subcentimeter perirectal lymph nodes. Colonic air-fluid levels suggestive of diarrheal illness versus colonic ileus. Moderate-sized bowel containing supraumbilical hernia. --Stool for C. difficile negative -- Appreciate surgery input Continue bowel regimen Full liquid diet for today, advance as tolerated Empirically on Rocephin, Flagyl Encouraged to ambulate (2) Acute urinary retention: Plan: Nephrolithiasis Continue Sanders catheter Appreciate urology input Voiding trial prior to discharge Needs follow up with primary urology as outpatient (3) Paroxysmal atrial fibrillation: Plan: Continue metoprolol Rate is controlled Eliquis on hold due to rectal bleed (4) Chronic anticoagulation: Plan: Resume Eliquis as able (5) S/P hemorrhoidectomy: Plan: Rectal bleed likely due to recent surgery Monitor H&H and transfuse as needed Avoid anticoagulation for today Hb 11.5 today Surgery on board (6) Polycythemia: Plan: Continue hydroxyurea Plan DVT Px: SCDs for now CODE STATUS Full code Admission and Anticipated Discharge Date Admission Date: May 10, 2024 Subjective Patient is seen and examined at bedside States having several loose BMs overnight Also had minimal rectal bleed overnight States feeling a lot better today Denies any nausea, vomiting, chest pain, dyspnea Tolerating liquid diet Review of Systems Review of Systems: All systems reviewed & are unremarkable except as noted in Subjective Physical Exam 2 Physical Exam: Physical Exam: Vitals signs as noted above General Appearance:Moderately built and nourished, no apparent distress Head: normocephalic, Atraumatic Eyes: normal inspection, EOMI Neck: supple, Trachea midline Respiratory/Chest: Normal breath sounds, CTA, No accessory muscle use Cardiovascular: Irregularly irregular, No murmur Abdomen/GI:Soft, Non tender, Bowel sounds present Extremities/Musculoskeletal:normal inspection, no edema Neurologic/Psych:AAOX3, grossly no focal neurological deficits Skin: normal color, warm Results & Data Results & Data Vital Signs (Past 12 Hours) Vital Signs Temp Pulse Resp BP Pulse Ox O2 Del Method 05/11/24 08:19 36.3 C L 62 18 100/64 95 Room Air 05/11/24 03:23 74 18 95/58 L 94 Room Air 05/11/24 01:28 72 109/66 95 Room Air Laboratory Results Short CBC 05/11/24 05/11/24 05/11/24 Range/Units 02:27 02:27 02:27 WBC 5.51 (4.8-10.8) K/ul Hgb 12.3 Cancelled (12.0-16.0) g/dl Hct 35.9 L Cancelled (37.0-47.0) % Plt Count 306 (130-400) K/uL 05/11/24 Range/Units 08:12 WBC (4.8-10.8) K/ul Hgb 11.5 L (12.0-16.0) g/dl Hct 33.2 L (37.0-47.0) % Plt Count (130-400) K/uL BMP 05/11/24 02:27 Sodium 136 Potassium 4.3 Chloride 101 Carbon Dioxide 28 BUN 16 Creatinine 0.76 Glucose 106 H Calcium 9.0
[2024-05-11 15:35] LABS: Hematocrit (blood only) 33.6 % (37.0-47.0); Hemoglobin 11.4 g/dl (12.0-16.0)
[2024-05-11] MEDS: ACETAMINOPHEN 500 MG TAB PO PRN (21:04)
[2024-05-11 22:54] LABS: Albumin Level 3.1 gm/dl (3.4-5.0); Bilirubin Direct 0.1 mg/dl (0-0.2); Bilirubin,Total 0.8 mg/dl (0.2-1.0); Total Protein 5.7 gm/dl (6.0-8.3)
[2024-05-12 06:34] LABS: Hematocrit (blood only) 35.3 % (37.0-47.0); Hemoglobin 12.1 g/dl (12.0-16.0); Mean Corpuscular Hemoglobin 40.1 pg (25.0-34.0); Mean Corpuscular Hgb Conc 34.3 g/dL (32.0-36.0); Mean Corpuscular Volume 116.9 fL (80.0-100.0); Mean Platelet Volume 9.1 fL (9.4-12.4); Nucleated RBC # (auto) 0.05 K/uL (0.00-0.12); Platelet Count 301 K/uL (130-400); RDW Coefficient of Variation 14.6 % (11.5-14.5); RDW Standard Deviation 62.1 fL (36.4-46.3); Red Blood Count 3.02 M/uL (4.20-5.40); White Blood Count 5.09 K/ul (4.8-10.8)
[2024-05-12 06:50] LABS: Albumin Globulin Ratio 1.2 (0.9-2); Albumin Level 3.1 gm/dl (3.4-5.0); BUN Creatinine Ratio 17.1 (10-20); Bilirubin,Total 0.6 mg/dl (0.2-1.0); Calcium 8.9 mg/dl (8.6-10.3); Creatinine Clr Calc Pharmacy 61.5 ml/min; Globulin 2.5 gm/dl (2.5-4.0); Magnesium 1.9 mg/dl (1.7-2.4); Potassium 4.8 mmol/L (3.5-5.1); Total Protein 5.6 gm/dl (6.0-8.3)
[2024-05-12] MEDS: HYDROXYUREA 500 MG CAP PO SCH (07:43)
--- NOTE | 2024-05-12 09:46 | XRay Report ---
KUB CLINICAL HISTORY: Constipation. COMPARISON STUDY: CT of the abdomen and pelvis May 10, 2024. FINDINGS: A 5 mm right renal calculus is unchanged. There are no ureteral calculi. A right lower quad rant calcific density is within the small bowel when correlating with CT. The bowel gas pattern is no rmal. The amount of stool within the rectum has decreased. A small to moderate amount stool is presen t. IMPRESSION: 1. No evidence for a bowel obstruction. 2. Interval decrease in the amount of stool within the rectum. 3. 5 mm right renal calculus. ACT 112: Negative or not required by law. Electronically signed by: Ignacio Betts M.D. 05/12/2024 9:45 AM
--- NOTE | 2024-05-12 11:36 | Surgery Progress Note ---
<Statement entered by Aranza Felton DO - 05/12/24 12:58> I have seen and examined this patient and I agree with this plan. Date of Service May 12, 2024 Assessment & Plan (1) Fecal retention: Plan: Improving, patient is passing some stool around the impaction She can continue bowel regimen as tolerates KUB today shows interval decrease in the amount of stool within the rectum & no SBO Can consider voiding trial when rectum is clear Nothing surgically to add, we will sign off, call with questions/concerns Admission and Anticipated Discharge Date Admission Date: May 10, 2024 Subjective Patient reports feeling better. Continues to pass loose stools, not much solid. Abdominal pain improved. No n/v. Physical Exam Physical Exam: awake/alert, no distress Gastrointestinal (Abdomen): Percussion/Palpation: abdomen soft; abdomen nontender Results & Data Vital Signs (Past 12 Hours) Vital Signs Temp Pulse Resp BP Pulse Ox O2 Del Method 05/12/24 08:03 98.4 F 85 18 122/82 98 Room Air PG Care Time/CCT Total # of Minutes Spent Total Time Spent with Patient: Total time spent is greater than 50% in coordination of care (as documented) at patient's floor/unit and/or counseling patient: Coding Level of Care Code 74639 SUB INP/OBS CARE 07/19MIN Diagnoses Constipation due to outlet dysfunction K59.02 Constipation type: outlet dysfunction constipation (1) Fecal retention Constipation type: outlet dysfunction constipation Qualified Code(s): K59.02 - Outlet dysfunction constipation
[2024-05-12] MEDS: POLYETHYLENE (MIRALAX) 17 GM PACK PO PRN (13:38)
--- NOTE | 2024-05-12 14:41 | Hospitalist Progress Note ---
Date of Service May 12, 2024 Assessment & Plan (1) Stercoral colitis: Plan: Stercoral colitis/fecal retention Overflow diarrhea --CT ABD:No bowel obstruction or pneumoperitoneum. Moderate fecal retention of the rectum with findings suggestive of a stercoral proctitis. Findings could be correlated with colonoscopy to exclude an underlying mucosal lesion. Subcentimeter perirectal lymph nodes. Colonic air-fluid levels suggestive of diarrheal illness versus colonic ileus. Moderate-sized bowel containing supraumbilical hernia. --Stool for C. difficile negative -- Appreciate surgery input Continue bowel regimen Advance to low fiber diet as tolerated KUB today improved fecal retention Empirically on Rocephin, Flagyl Encouraged to ambulate (2) Acute urinary retention: Plan: Nephrolithiasis Continue Sanders catheter Appreciate urology input Needs follow up with primary urology as outpatient Will plan for voiding trial tomorrow (3) Paroxysmal atrial fibrillation: Plan: Continue metoprolol Rate is controlled Eliquis on hold due to rectal bleed Hemoglobin stable (4) Chronic anticoagulation: Plan: Resume Eliquis as able (5) S/P hemorrhoidectomy: Plan: Rectal bleed likely due to recent surgery Monitor H&H and transfuse as needed Avoid anticoagulation for today Hb 12.1 Appreciate surgery input (6) Polycythemia: Plan: Continue hydroxyurea Plan DVT Px: SCDs for now CODE STATUS Full code Admission and Anticipated Discharge Date Admission Date: May 10, 2024 Subjective Patient is seen and examined at bedside States feeling a lot better today Less rectal pressure Reports having BMs Denies any nausea, vomiting, chest pain, dyspnea, abdominal pain Review of Systems Review of Systems: All systems reviewed & are unremarkable except as noted in Subjective Physical Exam Physical Exam: Physical Exam: Vitals signs as noted above General Appearance:Moderately built and nourished, no apparent distress Head: normocephalic, Atraumatic Eyes: normal inspection, EOMI Neck: supple, Trachea midline Respiratory/Chest: Normal breath sounds, CTA, No accessory muscle use Cardiovascular: Irregularly irregular, No murmur Abdomen/GI:Soft, Non tender, Bowel sounds present Extremities/Musculoskeletal:normal inspection, no edema Neurologic/Psych:AAOX3, grossly no focal neurological deficits Skin: normal color, warm Results & Data Results & Data Vital Signs (Past 12 Hours) Vital Signs Temp Pulse Resp BP Pulse Ox O2 Del Method 05/12/24 08:03 36.9 C 85 18 122/82 98 Room Air Laboratory Results Short CBC 05/11/24 05/12/24 Range/Units 15:07 06:06 WBC 5.09 (4.8-10.8) K/ul Hgb 11.4 L 12.1 (12.0-16.0) g/dl Hct 33.6 L 35.3 L (37.0-47.0) % Plt Count 301 (130-400) K/uL BMP 05/12/24 06:06 Sodium 142 Potassium 4.8 Chloride 110 H Carbon Dioxide 31 BUN 12 Creatinine 0.70 Glucose 100 H Calcium 8.9 Liver Function 05/11/24 05/12/24 Range/Units 08:12 06:06 Total Bilirubin 0.8 0.6 (0.2-1.0) mg/dl Direct Bilirubin 0.1 (0-0.2) mg/dl AST 49 H 34 (13-39) U/L ALT 41 32 (7-52) U/L Alkaline Phosphatase 124 H 111 H (34-104) U/L Albumin 3.1 L 3.1 L (3.4-5.0) gm/dl
[2024-05-13 08:07] VITALS: RESP 18
[2024-05-13 11:12] VITALS: O2SAT 99
--- NOTE | 2024-05-13 12:40 | Hospitalist Progress Note ---
Date of Service May 13, 2024 Assessment & Plan (1) Stercoral colitis: Plan: Stercoral colitis/fecal retention Overflow diarrhea --CT ABD:No bowel obstruction or pneumoperitoneum. Moderate fecal retention of the rectum with findings suggestive of a stercoral proctitis. Findings could be correlated with colonoscopy to exclude an underlying mucosal lesion. Subcentimeter perirectal lymph nodes. Colonic air-fluid levels suggestive of diarrheal illness versus colonic ileus. Moderate-sized bowel containing supraumbilical hernia. --Stool for C. difficile negative -- Appreciate surgery input Continue bowel regimen Tolerating low fiber diet Empirically on Rocephin, Flagyl>> transition to Augmentin on discharge Encouraged to ambulate Plan to discharge home today (2) Acute urinary retention: Plan: Nephrolithiasis Appreciate urology input Needs follow up with primary urology as outpatient Voiding trial today Added flomax (3) Paroxysmal atrial fibrillation: Plan: Continue metoprolol Rate is controlled Eliquis on hold due to rectal bleed Hemoglobin stable Resume anticoagulation on discharge (4) Chronic anticoagulation: Plan: Management as above (5) S/P hemorrhoidectomy: Plan: Rectal bleed likely due to recent surgery Monitor H&H and transfuse as needed Avoid anticoagulation for today Hb 12.1 Appreciate surgery input (6) Polycythemia: Plan: Continue hydroxyurea Plan DVT Px: SCDs for now Plan to resume Eliquis as able CODE STATUS Full code Admission and Anticipated Discharge Date Admission Date: May 10, 2024 Subjective Patient is seen and examined at bedside Had multiple BMs Feels better today Plan for voiding trial today No new complaints Denies any nausea, vomiting, chest pain, dyspnea, abdominal pain Review of Systems Review of Systems: All systems reviewed & are unremarkable except as noted in Subjective Physical Exam Physical Exam: Physical Exam: Vitals signs as noted above General Appearance:Moderately built and nourished, no apparent distress Head: normocephalic, Atraumatic Eyes: normal inspection, EOMI Neck: supple, Trachea midline Respiratory/Chest: Normal breath sounds, CTA, No accessory muscle use Cardiovascular: Irregularly irregular, No murmur Abdomen/GI:Soft, Non tender, Bowel sounds present Extremities/Musculoskeletal:normal inspection, no edema Neurologic/Psych:AAOX3, grossly no focal neurological deficits Skin: normal color, warm Results & Data Results & Data Vital Signs (Past 12 Hours) Vital Signs Temp Pulse Pulse Resp BP Pulse Ox O2 Del Method 05/13/24 11:06 36.4 C L 66 18 104/68 99 Room Air 05/13/24 08:05 36.4 C L 123 H 18 109/88 96 Room Air
[2024-05-13] MEDS: TAMSULOSIN HCL 0.4 MG CAP PO ONE (13:15)
--- NOTE | 2024-05-13 14:54 | Discharge Summary ---
Date of Service May 13, 2024 Admission HPI Per Admitting Provider Vanna Art is an 83-year-old female with a previous history significant for history of splenectomy, paroxysmal atrial fibrillation on chronic apixaban, polycythemia vera, hyperlipidemia, calculus of kidney, symptomatic PVCs, pancreatic cyst consistent with intraductal papillary mucinous neoplasm and recent rectal surgery consisting of hemorrhoidectomy 5 days ago at [facility] with colorectal surgery. She presents to the ED today with a complaint of not being able to urinate. Patient reports that she has not been able to fully empty her bladder in the last week. She had hemorrhoidectomy surgery 5 days ago and states that she has been having difficulties urinate ever since. She has been using sitz bath's and urinating during her sitz bath's. Reports that last night she felt significant pressure but was only able to get a few drops of urine out at a time. She states significant pain and pressure in her lower abdomen. Denies any nausea or vomiting. She denies any fevers. Patient reports that she had not had a bowel movement all week until last night when she finally took some milk of magnesia. In the ED a Sanders catheter was inserted and she had over 1 L of retained urine. CT scan shows probable proctitis. ED provider discussed case with surgery and they recommended admission with IV antibiotics. Patient was started on IV metronidazole and ceftriaxone. Patient is referred for admission for further treatment. Admission Exam Per Admitting Provider General- adult elderly female seen at bedside. She is a good historian Head- atraumatic Eyes- PERRL, EOMI, anicteric ENT- oropharynx clear Neck- supple, no JVD, no adenopathy, no thyromegaly; carotids +2/2, no bruits appreciated Lungs- clear to auscultation and percussion Heart- regular rhythm; no murmur, no gallop, no rub appreciated Abdomen- normal bowel sounds, soft, diffuse tenderness in the lower quadrants and suprapubic area : Sanders catheter draining clear yellow urine Extremities- no pretibial edema, no calf tenderness; peripheral pulses intact Neuro- alert, oriented x 3; PERRL, EOMI; no facial palsy; no dysarthria; motor 5/5 bilaterally; Skin- warm & dry Principal Diagnosis Stercoral colitis/fecal retention Acute urinary retention Nephrolithiasis Post hemorrhoidectomy rectal bleed Discharge Data Allergies Allergy/AdvReac Type Severity Reaction Status Date / Time procaine [From Novocain] AdvReac Severe Made arms Unverified 05/10/24 10:26 weak Consultations 05/10/24 11:05 ED Decision to Admit Stat 05/10/24 12:19 Consult General Surgery Routine Consult Urology Routine Procedures Performed Laboratory Results WBC 5.09 K/ul (4.8-10.8) 05/12/24 06:06 RBC 3.02 M/uL (4.20-5.40) L 05/12/24 06:06 Hgb 12.1 g/dl (12.0-16.0) 05/12/24 06:06 Hct 35.3 % (37.0-47.0) L 05/12/24 06:06 MCV 116.9 fL (80.0-100.0) H 05/12/24 06:06 MCH 40.1 pg (25.0-34.0) H 05/12/24 06:06 MCHC 34.3 g/dL (32.0-36.0) 05/12/24 06:06 RDW Std Deviation 62.1 fL (36.4-46.3) H 05/12/24 06:06 RDW Coeff of Candida 14.6 % (11.5-14.5) H 05/12/24 06:06 Plt Count 301 K/uL (130-400) 05/12/24 06:06 MPV 9.1 fL (9.4-12.4) L 05/12/24 06:06 Immature Gran % (Auto) 0.5 % 05/10/24 08:22 Neut % (Auto) 63.1 % 05/10/24 08:22 Lymph % (Auto) 25.5 % 05/10/24 08:22 [place] % (Auto) 10.1 % 05/10/24 08:22 Eos % (Auto) 0.6 % 05/10/24 08:22 Baso % (Auto) 0.2 % 05/10/24 08:22 Neut # (Auto) 3.93 K/uL (1.40-6.50) 05/10/24 08:22 Lymph # (Auto) 1.59 K/uL (1.20-3.40) 05/10/24 08:22 [place] # (Auto) 0.63 K/uL (0.11-0.59) H 05/10/24 08:22 Eos # (Auto) 0.04 K/uL (0.00-0.50) 05/10/24 08:22 Baso # (Auto) 0.01 K/uL (0.00-0.20) 05/10/24 08:22 Immature Gran # (Auto) 0.03 K/uL (0.01-0.20) 05/10/24 08:22 Absolute Nucleated RBC 0.05 K/uL (0.00-0.12) 05/12/24 06:06 Nucleated RBC % (auto) 1.0 % 05/12/24 06:06 Polychromasia 1+ 05/10/24 08:22 Macrocytosis Present 05/10/24 08:22 Pappenheimer Bodies 2+ 05/10/24 08:22 [place] Bodies 1+ 05/10/24 08:22 Sodium 142 mmol/L (136-145) 05/12/24 06:06 Potassium 4.8 mmol/L (3.5-5.1) 05/12/24 06:06 Chloride 110 mmol/L (98-107) H 05/12/24 06:06 Carbon Dioxide 31 mmol/L (21-32) 05/12/24 06:06 Anion Gap 1 (3-11) L 05/12/24 06:06 BUN 12 mg/dl (6-23) 05/12/24 06:06 Creatinine 0.70 mg/dl (0.6-1.2) 05/12/24 06:06 Est Cr Clr Drug Dosing 61.5 ml/min 05/12/24 06:06 eGFR 85.76 05/12/24 06:06 BUN/Creatinine Ratio 17.1 (10-20) 05/12/24 06:06 Glucose 100 mg/dl (70-99(Fasting)) H 05/12/24 06:06 Estimat Average Glucose 114 mg/dl 05/11/24 02:27 Hemoglobin A1c 5.6 % (4.5-5.6) 05/11/24 02:27 Lactate 0.8 mmol/L (0.4-2.0) 05/10/24 10:53 Calcium 8.9 mg/dl (8.6-10.3) 05/12/24 06:06 Magnesium 1.9 mg/dl (1.7-2.4) 05/12/24 06:06 Total Bilirubin 0.6 mg/dl (0.2-1.0) 05/12/24 06:06 Direct Bilirubin 0.1 mg/dl (0-0.2) 05/11/24 08:12 AST 34 U/L (13-39) 05/12/24 06:06 ALT 32 U/L (7-52) 05/12/24 06:06 Alkaline Phosphatase 111 U/L (34-104) H 05/12/24 06:06 Total Protein 5.6 gm/dl (6.0-8.3) L 05/12/24 06:06 Albumin 3.1 gm/dl (3.4-5.0) L 05/12/24 06:06 Globulin 2.5 gm/dl (2.5-4.0) 05/12/24 06:06 Albumin/Globulin Ratio 1.2 (0.9-2) 05/12/24 06:06 Urine Color Yellow 05/10/24 08:54 Urine Appearance Clear (Clear) 05/10/24 08:54 Urine pH 7.5 (4.5-7.5) 05/10/24 08:54 Ur Specific [place] 1.014 (1.000-1.030) 05/10/24 08:54 Urine Protein Negative (Negative) 05/10/24 08:54 Urine Glucose (UA) Negative (Negative) 05/10/24 08:54 Urine Ketones Trace (Negative) H 05/10/24 08:54 Urine Blood Negative (Negative) 05/10/24 08:54 Urine Nitrite Negative (Negative) 05/10/24 08:54 Urine Bilirubin Negative (Negative) 05/10/24 08:54 Urine Urobilinogen Negative (Negative) 05/10/24 08:54 Ur Leukocyte Esterase Negative (Negative) 05/10/24 08:54 Stl C. diff Tox B Gene Negative Cdiff Gene (Neg) 05/11/24 01:20 Blood Type O Negative 05/11/24 02:27 Antibody Screen NEGATIVE 05/11/24 02:27 Impressions Abdomen/Pelvis CT 05/10/24 09:[address] WITHOUT CONTRAST CT DOSE: 1078.2 mGy.cm HISTORY: Acute lower abdominal pain lower abd pain; urinary retention TECHNIQUE: Multiaxial CT images of the abdomen and pelvis were performed without contrast. A dose lowering technique was utilized adhering to the principles of ALARA. COMPARISON STUDY: 03/15/2014 FINDINGS: Mild cardiomegaly. Mild dependent subsegmental bibasilar atelectasis versus scarring. No pneumoperitoneum. 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 Cholecystectomy. Unremarkable adrenal glands and liver. Cortical thinning of the kidneys. 8 mm nonobstructing calculus of the interpolar right kidney. There are a few probable cysts in the left kidney measuring up to 11 mm. No ureteral calculi or hydronephrosis. Decompressed urinary bladder with Sanders catheter. Atherosclerosis of the aorta without aneurysm. No pathologically enlarged lymph nodes identified. Mild nonspecific distal esophageal wall thickening. Moderate fecal retention within the rectum with rectal wall thickening and perirectal stranding. Subcentimeter perirectal lymph nodes are also present. Colonic distention with a ir-fluid levels. No small bowel obstruction. There is a supraumbilical hernia which is fat filled measuring 6.4 cm containing a portion of nonobstructed transverse colon. No CT evidence of acute appendicitis. No acute fracture. IMPRESSION: 1. Right nephrolithiasis. No ureteral calculi or hydronephrosis. 2. No bowel obstruction or pneumoperitoneum. 3. Moderate fecal retention of the rectum with findings suggestive of a stercoral proctitis. Findings could be correlated with colonoscopy to exclude an underlying mucosal lesion. 4. Subcentimeter perirectal lymph nodes. 5. Colonic air-fluid levels suggestive of diarrheal illness versus colonic ileus. 6. Moderate-sized bowel containing supraumbilical hernia. ACT 112: Negative or not required by law. The above report was generated using voice recognition software. It may contain grammatical, syntax or spelling errors. Electronically signed by: Cam Lyles M.D. 05/10/2024 10:10 AM KUB X-Ray 05/12/24 07:00 KUB CLINICAL HISTORY: Constipation. COMPARISON STUDY: CT of the abdomen and pelvis May 10, 2024. FINDINGS: A 5 mm right renal calculus is unchanged. There are no ureteral calculi. A right lower quadrant calcific density is within the small bowel when correlating with CT. The bowel gas pattern is normal. The amount of stool within the rectum has decreased. A small to moderate amount stool is present. IMPRESSION: 1. No evidence for a bowel obstruction. 2. Interval decrease in the amount of stool within the rectum. 3. 5 mm right renal calculus. ACT 112: Negative or not required by law. Electronically signed by: Ignacio Betts M.D. 05/12/2024 9:45 AM Ordered Studies 05/10/24 09:27 CT Abd and Pelvis [CT abd pelvis wo con] Stat Hospital Course (1) Stercoral colitis: Stercoral colitis/fecal retention Overflow diarrhea --CT ABD:No bowel obstruction or pneumoperitoneum. Moderate fecal retention of the rectum with findings suggestive of a stercoral proctitis. Findings could be correlated with colonoscopy to exclude an underlying mucosal lesion. Subcentimeter perirectal lymph nodes. Colonic air-fluid levels suggestive of diarrheal illness versus colonic ileus. Moderate-sized bowel containing supraumbilical hernia. --Stool for C. difficile negative -- Appreciate surgery input Continue bowel regimen Tolerating low fiber diet Empirically on Rocephin, Flagyl>> transition to Augmentin on discharge Encouraged to ambulate Plan to discharge home today (2) Acute urinary retention: Nephrolithiasis Appreciate urology input Failed voiding trial Sanders catheter replaced Advised to follow-up with urology as outpatient (3) Paroxysmal atrial fibrillation: Continue metoprolol Rate is controlled Eliquis on hold due to rectal bleed Hemoglobin stable Resume anticoagulation on discharge (4) Chronic anticoagulation: Management as above (5) S/P hemorrhoidectomy: Rectal bleed likely due to recent surgery Monitor H&H and transfuse as needed Avoid anticoagulation for today Hb 12.1 Appreciate surgery input (6) Polycythemia: Continue hydroxyurea Plan DVT Px: SCDs for now Plan to resume Eliquis as able CODE STATUS Full code Total Time Total Time Spent Total Time Spent (In Minutes): 45 minutes Discharge Plan Discharge Items Patient Disposition: Home - Self-Care Reason For Visit: ABDOMINAL PAIN, URINARY RETENTION Discharge Diagnosis: Stercoral colitis/fecal retention Acute urinary retention Nephrolithiasis Post hemorrhoidectomy rectal bleed Activity: Per Instructions section Exercise/Sports: Gradually increase as tolerated Non-emergency contact: Primary Care Provider and Urologist Call non-emergency contact if: you have any medication questions, your symptoms worsen, your pain is concerning for you and you have a fever Follow-up/Referrals: Kathryn Dennison DO [Primary Care Provider] - (Date & Time 05/20/2024 10:00 AM Provider Kathryn Dennison DO Department [facility] ) Diet: Low Fiber Addtl Attending Provider Instructions: Follow-up with your primary care physician in 1 week Follow-up with your urologist in 1 to 2 weeks as advised --Complete the antibiotic course Augmentin as prescribed. --Continue stool softeners as needed to help prevent constipation --You can resume your anticoagulation with Eliquis if no recurrence of rectal bleed. Seek immediate medical attention if your symptoms reoccur or worsen Please take all medications as instructed on discharge list below. Please call if you have any questions or problems. You can reach a [facility] hospitalist on duty at [facility] 24 hours a day by calling [phone] Pending Studies at Discharge: No Stand-Alone Forms: My [facility], Smoking Cessation Medications and DC Order Prescriptions: New polyethylene glycol 3350 [Miralax] 17 gram Powder In Packet 17 g PO DAILY PRN (Reason: constipation) Qty: 30 0RF docusate sodium 100 mg Capsule 100 mg PO BID PRN (Reason: Constipation) Qty: 30 0RF amoxicillin-pot clavulanate [Augmentin] 500-125 mg tablet 1 tab PO BID Qty: 7 0RF Continued Probiotic 3 billion cell Capsule 3,000 mmu cells PO 2XWK Qty: 0 Rx Instructions: Sun/Wed hydroxyurea 500 mg capsule 500 mg PO UD Rx Instructions: Take 1000mg by mouth on Mon/Wed/Fri and 500mg all other days metoprolol succinate 50 mg tablet extended release 24 hr 50 mg PO DAILY TobraDex 0.3-0.1 % ointment 1 applic OPB DAILY PRN (Reason: Rash) gabapentin 300 mg capsule 300 mg PO BID hydrochlorothiazide 25 mg tablet 25 mg PO DAILY oxycodone 5 mg tablet 5 mg PO Q6H PRN (Reason: Pain) coenzyme Q10 [CoQ-10] 100 mg Capsule 100 mg PO DAILY rosuvastatin 20 mg tablet 20 mg PO DAILY Eliquis 5 mg tablet 5 mg PO BID Discharge Orders: Discharge Order (Routine); Ordered 05/13/24 Ordered By: Darvin Herrera Admission Data Admit Date/Time: 05/10/24 12:21 Attending Provider: Darvin Herrera Admit Provider: Eliseo Goldstein Primary Care Provider: Kathryn Dennison Other Providers: Eliseo Goldstein; Derrick Morelos; Bolivar Benz; Claire Hoyos; Dexter Dumont; Carlito Brown; Peri Juarez; Yuridia Zimmer; Nikolay Kan Jr; Kellen Tan; Edison Manrique; [place]; Abelardo Del Rio; Ingris Orozco; Derrick Cuellar; Gris Mojica; Sahra Huynh; Mikal Fenton; Monse Narayan.; Manny Livingston; Erin Webb; Zi Perera
[2024-05-13 14:57] VITALS: BP 134/83; PULSE 65; TEMP 97.7
[2024-05-14] MEDS ORDERED: TAMSULOSIN HCL 0.4 MG CAP PO SCH (09:00)
== END 2024-05-13 16:24 | disposition home or self-care (01) | DRG 392 ==
LOC: ED 08:05 → SUATTDRO 12:21 → 3N 12:21